=== PATIENT | male | born 1945 | race Caucasian/White ===

== ENCOUNTER 2018-02-18 17:58 | Emergency (ER) | payer MEDICARE, MEDICAID ==
[2018-02-18] MEDS ORDERED: predniSONE TAB* 20 MG PO ONE (21:27)
--- NOTE | 2018-02-18 21:45 | RAD ---
Indication: Cough. Shortness of breath. Comparison: July 03, 2011 CT. February 24, 2011 chest radiograph. Technique: Upright AP 2110 hours Report: 1.6 cm rounded region of low density opacity at the RIGHT lung base. Mild prominence of the interstitial markings and upper lung zone rarefaction. Negative for pleural effusion or pneumothorax. Prominent central pulmonary arteries with peripheral attenuation. IMPRESSION: 1. Indeterminant small rounded opacity at the RIGHT lung base may represent a rounded pneumonia or pulmonary nodule. Correlate with clinical assessment and consider contrast-enhanced CT for further evaluation. 2. Stigmata of chronic obstructive pulmonary disease and probable pulmonary arterial hypertension.
[2018-02-18] MEDS ORDERED: Levofloxacin TAB* 750 MG PO ONE (21:55)
--- NOTE | 2018-02-18 22:07 | ED ---
Christy Morgan Rebecca, scribed for Jorden Morin MD on 02/18/18 at 2138 . Respiratory - HPI Summary HPI Summary: Pt is a 72 y/o M who presents to ED c/o productive cough. Sx have been present for a few days and he is bringing up phlegm and mucous with coughing. Sx aggravated and alleviated by nothing. Additionally c/o hoarse voice for a few days. He denies any pain and has no SOB. Pt presents due to concern of PNA. - History of Current Complaint Chief Complaint: EDUpperRespComplaint Stated Complaint: THROAT PROBLEM Time Seen by Provider: 02/18/18 19:48 Hx Obtained From: Patient Onset/Duration: Lasting Days, Still Present Current Severity: None Pain Intensity: 0 Character: Cough (Productive) Aggravating Factor(s): Nothing Alleviating Factor(s): Nothing Associated Signs and Symptoms: Hoarseness - Allergy/Home Medications Allergies/Adverse Reactions: Allergies Allergy/AdvReac Type Severity Reaction Status Date / Time No Known Allergies Allergy Verified 02/18/18 19:16 PMH/Surg Hx/FS Hx/Imm Hx Endocrine/Hematology History: Denies: Hx Anticoagulant Therapy, Hx Diabetes, Hx Thyroid Disease Cardiovascular History: Reports: Hx Hypertension Denies: Hx Pacemaker/ICD Respiratory History: Denies: Hx Asthma, Hx Chronic Obstructive Pulmonary Disease (COPD) History: Denies: Hx Renal Disease Neurological History: Denies: Hx Dementia, Hx Seizures Psychiatric History: Denies: Hx Substance Abuse - Cancer History Cancer Type, Location and Year: prostate ca Infectious Disease History: No Infectious Disease History: Denies: Hx Hepatitis, Hx Human Immunodeficiency Virus (HIV), Traveled Outside the [place] in Last 30 Days - Family History Known Family History: Negative: Diabetes - Social History Alcohol Use: Rare Substance Use Type: Reports: None Smoking Status (MU): Former Smoker Review of Systems Positive: Other - Hoarse voice Positive: Cough. Negative: Shortness Of Breath Positive: Other - NEGATIVE: Pain All Other Systems Reviewed And Are Negative: Yes Physical Exam - Summary Physical Exam Summary: VITAL SIGNS: Reviewed. GENERAL: ~Patient is a well-developed and nourished male who is lying comfortable in the stretcher. Patient is not in any acute respiratory distress. HEAD AND FACE: No signs of trauma. No ecchymosis, hematomas or skull depressions. No sinus tenderness. EYES: PERRLA, EOMI x 2, No injected conjunctiva, no nystagmus. EARS: Hearing grossly intact. Ear canals and tympanic membranes are within normal limits. MOUTH: Mild hoarse voice. NECK: Supple, trachea is midline, no adenopathy, no JVD, no carotid bruit, no c- spine tenderness, neck with full ROM. CHEST: Symmetric, no tenderness at palpation LUNGS: Clear to auscultation bilaterally. No wheezing or crackles. CVS: Regular rate and rhythm, S1 and S2 present, no murmurs or gallops appreciated. ABDOMEN: Soft, non-tender. No signs of distention. No rebound no guarding, and no masses palpated. Bowel sounds are normal. EXTREMITIES: FROM in all major joints, no edema, no cyanosis or clubbing. NEURO: Alert and oriented x 3. No acute neurological deficits. Speech is normal and follows commands. SKIN: Dry and warm Triage Information Reviewed: Yes Vital Signs On Initial Exam: Initial Vitals Temp Pulse Resp BP Pulse Ox 97.6 F 88 18 126/84 97 02/18/18 18:08 02/18/18 18:08 02/18/18 18:08 02/18/18 18:08 02/18/18 18:08 Vital Signs Reviewed: Yes Diagnostics - Vital Signs Vital Signs Temp Pulse Resp BP Pulse Ox 02/18/18 19:15 97.7 F 86 16 137/94 99 02/18/18 18:08 97.6 F 88 18 126/84 97 - Laboratory Lab Statement: Any lab studies that have been ordered have been reviewed, and results considered in the medical decision making process. - Radiology CXR Radiology Interpretation Completed By: Radiologist - 1. Indeterminant small rounded opacity at the RIGHT lung base may represent a rounded pneumonia or pulmonary nodule. Correlate with clinical assessment and consider contrast- enhanced CT for further evaluation. 2. Stigmata of chronic obstructive pulmonary disease and probable pulmonary arterial hypertension. ED physician reviewed this radiology report. Re-Evaluation - Re-Evaluation First Eval Re-Evaluation Time: 21:58 Comment: Discussed CXR with pt. Told him that he needs to get a chest CT as an outpatient. Disposition - Course Assessment/Plan: Pt is a 72 y/o M who presents to ED c/o productive cough with phlegm and mucous for a few days, accompanied by hoarse voice for a few days. He denies any pain and has no SOB. Pt presents due to concern of PNA. CXR read as right-sided PNA vs. nodule with full results above. Discussed with the pt that he should get a chest CT as an outpatient. Will be D/C to home with Dx of laryngitis and PNA with Rx for Levaquin and Deltasone and instructions to get outpatient chest CT. Understands and agrees. - Diagnoses Provider Diagnoses: Laryngitis, PNA (pneumonia) Discharge - Sign-Out/Discharge Documenting (check all that apply): Discharge/Admit/Transfer - Discharge - Discharge Plan Condition: Stable Disposition: HOME Prescriptions: Levofloxacin TAB* [Levaquin TAB*] 750 mg PO DAILY #7 tab predniSONE TAB* [Deltasone TAB*] 40 mg PO DAILY #10 tab Patient Education Materials: Laryngitis (ED), Pneumonia (ED) Referrals: Mark Turner MD [Primary Care Provider] - 3 Days Additional Instructions: Get a chest CT as an outpatient. RETURN TO ED FOR ANY NEW OR WORSENING SYMPTOMS. The documentation as recorded by the Christy gunderson Rebecca accurately reflects the service I personally performed and the decisions made by me, Jorden Morin MD.
[2018-02-18 22:47] VITALS: BP 129/86
== END 2018-02-18 22:45 | disposition home or self-care (01) ==
LOC: ED 17:58
DX: J18.9 Pneumonia, unspecified organism (principal); J04.0 Acute laryngitis; Z87.891 Personal history of nicotine dependence
CPT/HCPCS: 71045; 99284; A9270-GY; J7512

== ENCOUNTER 2018-03-18 14:48 | Emergency (ER) | payer MEDICARE, MEDICAID ==
[2018-03-18] MEDS ORDERED: Ketorolac INJ* 60 MG/2 ML VIAL IM ONE (15:14)
--- NOTE | 2018-03-18 15:40 | RAD ---
HISTORY: fall, L hip injury COMPARISONS: None VIEWS: 3, Frontal view of the pelvis with frontal and frog-leg views of the left hip FINDINGS: BONE DENSITY: Normal. BONES: There is nondisplaced fracture through the greater trochanter of the left hip. 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 ALIGNMENT: There is no dislocation. SOFT TISSUES: Unremarkable. OTHER FINDINGS: None. IMPRESSION: NONDISPLACED FRACTURE THROUGH THE GREATER TROCHANTER OF THE LEFT FEMUR
--- NOTE | 2018-03-18 16:24 | RAD ---
Indication: Preop trochanteric fracture. Single view of the chest done in AP sitting view demonstrates no mediastinal shift. Hyperinflated lung littlejohn are noted. Lung littlejohn are clear. IMPRESSION: Hyperinflated lung littlejohn without definite pneumonia.
--- NOTE | 2018-03-18 16:25 | RAD ---
Indication: Trochanteric fracture 2 views of left femur demonstrates trochanteric fracture of the left hip. The remainder of the femur is unremarkable. Bipartite patella is noted. IMPRESSION: Fracture through the greater trochanter. Remainder of the left femur is unremarkable.
[2018-03-18 17:39] VITALS: BP 127/87
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
== END 2018-03-18 17:37 | disposition home or self-care (01) ==
LOC: ED 14:48
DX: S72.115A Nondisplaced fracture of greater trochanter of left femur, initial encounter for closed fracture (principal); V19.88XA Pedal cyclist (driver) (passenger) injured in other specified transport accidents, initial encounter; Y93.55 Activity, bike riding; Y92.9 Unspecified place or not applicable; I10 Essential (primary) hypertension; Z87.891 Personal history of nicotine dependence; Z79.899 Other long term (current) drug therapy; Z85.46 Personal history of malignant neoplasm of prostate; Z88.0 Allergy status to penicillin
CPT/HCPCS: 71045; 93005; 96372; 99282; J1885

== ENCOUNTER 2018-03-30 14:36 | Inpatient (IN) | payer MEDICARE, MEDICAID ==
--- NOTE | 2018-03-30 16:05 | RAD ---
INDICATION: Right shoulder injury COMPARISON: March 10, 2014 TECHNIQUE: AP and Y views were obtained. FINDINGS: There is anterior dislocation. There is chronic Hill-Sachs deformity. No additional findings. IMPRESSION: ANTERIOR DISLOCATION WITH HILL-SACHS DEFORMITY
[2018-03-30] MEDS ORDERED: Midazolam* 1 MG/ML 10 ML VIAL (10 MG) IV ONE (16:15)
[2018-03-30] MEDS ORDERED: fentaNYL* 50 MCG/ML 2 ML VIAL (100 MCG VIAL) IV SLOW PU ONE (16:15)
[2018-03-30] MEDS ORDERED: Flumazenil* 0.1 MG/ML 5 ML MDV ONE (16:20)
[2018-03-30] MEDS ORDERED: Naloxone* 0.4 MG/ML 1 ML VIAL ONE (16:21)
[2018-03-30] MEDS ORDERED: Midazolam* 1 MG/ML 2 ML VIAL (2 MG) IV ONE (17:53)
[2018-03-30] MEDS ORDERED: Midazolam* 1 MG/ML 10 ML VIAL (10 MG) ONE (17:54)
--- NOTE | 2018-03-30 18:26 | RAD ---
INDICATION: Postreduction COMPARISON: Right shoulder same date TECHNIQUE: 2 views were obtained. FINDINGS: There is satisfactory reduction. Note is again made of a chronic Hill-Sachs deformity. No additional findings. IMPRESSION: SATISFACTORY REDUCTION.
--- NOTE | 2018-03-30 18:58 | ED ---
Progress - Progress Note Progress Note: Mr. Ventura presented wiith a disloocated shoulder and I was asked to provide conscious sedation for reduction. Course/Dx - Course Course Of Treatment: Mr. Ventura was awake and cooperative. He had an ASA score of 2 and a Mallampati score of 1. He was placed on oxygen, pulse ox, monitor, and CO2 monitor. Reversal agents and airway rescue equipment was in the room. He was given 100 of fentanyl IV followed by 2 mg of Versed at a time for a total of 10. He maintained his pulse ox and CO2 well but was unable to respond during the procedure. The procedure was performed by Dr. Menezes. - Diagnoses Provider Diagnoses: Sedated Discharge - Sign-Out/Discharge Documenting (check all that apply): Discharge/Admit/Transfer - Discharge Plan Condition: Stable Disposition: HOME Patient Education Materials: Shoulder Dislocation (ED) Referrals: Mark Turner MD [Primary Care Provider] - Additional Instructions: Please follow up with Dr. Menezes as scheduled - within 1 week Keep the splint applied until your follow up - this is very important - Billing Disposition and Condition Condition: STABLE Disposition: Home
[2018-03-30 21:20] LABS: Urine Appearance Turbid; Urine Blood 2+ (Negative); Urine Color Amber; Urine Ketones 1+ (Negative); Urine Protein 3+(>=500 mg/dL) (Negative); Urine Red Blood Cell 3+(>10/hpf) (Absent); Urine Specific Gravity 1.009 (1.010-1.030); Urine Urobilinogen Negative (Negative); Urine White Blood Cell 3+(>20/hpf) (Absent)
--- NOTE | 2018-03-30 22:26 | CONS ---
ORTHOPEDIC CONSULTATION: DATE OF CONSULT: 03/30/18 ATTENDING PHYSICIAN: Christen Menezes MD This is an orthopedic consultation in the emergency room. CHIEF COMPLAINT: Right shoulder dislocation. HISTORY OF PRESENT ILLNESS: Mr. Ventura is a 72-year-old gentleman with recurrent right shoulder instability. He was reportedly getting up off of his couch when he dislocated his right shoulder earlier today. He had 10/10 pain and was unable to reduce the shoulder. He was brought to [facility] Emergency Room. I am called by provider in the emergency room. Multiple providers have attempted a reduction and have been unsuccessful. I am called to help with the reduction under anesthesia in the emergency room. PAST MEDICAL HISTORY: Alcohol abuse, hypertension, hypercholesterolemia, prostate cancer, and asthma. PAST SURGICAL HISTORY: None. HOME MEDICATIONS: 1. Metoprolol 50 mg p.o. daily. 2. Simvastatin 20 mg p.o. daily. 3. Tylenol. 4. Advil p.r.n. for pain. FAMILY HISTORY: None. SOCIAL HISTORY: The patient lives alone. He is right hand dominant. Retired from a pharmacy and works as a volunteer at [employer] REVIEW OF SYSTEMS: Today, the patient is under significant sedation and review of systems is unable to be obtained. PHYSICAL EXAM: Vitals: Temperature 98.9, heart rate 73, blood pressure 102/ 60. General: The patient is a thin male, in no apparent distress. He is heavily sedated. Right upper extremity: The patient's skin is intact. There is an obvious anterior shoulder dislocation. There is obvious muscle atrophy around the shoulder. 2+ palpable radial pulse. DIAGNOSTIC STUDIES/LAB DATA: Multiple views of the shoulder show an anterior inferior glenohumeral dislocation. There is chronic Hill-Sachs lesion on the humeral head. No obvious acute fracture. ASSESSMENT AND PLAN: Mr. Ventura is a 72-year-old right hand dominant male with recurrent right shoulder instability. I am called to the ED after multiple failed reduction attempts. The patient was heavily sedated and most of my history is from other history or prior history. I did work with Dr. Sarmiento. We performed the appropriate time-out. I felt that the patient needed additional pain medication due to a history of questionable alcohol abuse. More Versed was given at the bedside by Dr. Sarmiento. The patient' s vitals were monitored appropriately. A gentle reduction maneuver was performed and the right shoulder visibly reduced. He was placed in a shoulder immobilizer. Postreduction films did show satisfactory reduction. The patient's sedation will be reversed and he will be discharged to home in the shoulder immobilizer. He will follow up in my clinic within the next week or two for a recheck. Thank you for this orthopedic consultation. [id number]/CPS #: [id number] ASHELY
[2018-03-30] MEDS ORDERED: Ciprofloxacin TAB* 500 MG PO ONE (23:11)
[2018-03-31] MEDS ORDERED: NS 0.9% 1000 ML* 1,000 ML IV ONE (04:40)
[2018-03-31 05:00] LABS: Hematocrit 40 % (42-52); Hemoglobin 13.7 g/dl (14.0-18.0); Mean Corpuscular HGB Conc 34 g/dl (31-36); Mean Corpuscular Hemoglobin 30 pg (27-31); Mean Corpuscular Volume 89 fL (80-94); Mean Platelet Volume 7.1 um3 (7.4-10.4); Platelet Count 568 10^3/ul (150-450); Red Blood Count 4.52 10^6/ul (4.00-5.40); Red Cell Distribution Width 13 % (10.5-15); White Blood Count 9.8 10^3/ul (3.5-10.8)
[2018-03-31 05:14] LABS: ABS Basophils 0 10^3/ul (0-0.2); ABS Eosinophils 0 10^3/ul (0-0.6); ABS Monocytes 1.6 10^3/ul (0-0.8); ABS Neutrophils 7.2 10^3/ul (1.5-7.7); ABS Nucleated RBC 0 10^3/ul; Eosinophil % 0.2 % (0-6); Lymphocyte % 10.4 % (25-47); Nucleated Red Blood Cells % 0
[2018-03-31 05:17] LABS: EGFR Non-African American 137.7 (>60)
[2018-03-31] MEDS ORDERED: NS 0.9% 1000 ML* 1,000 ML IV SCH ×2 (05:45→11:45)
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
--- NOTE | 2018-03-31 06:36 | PN ---
Aaliyah Morgan SooYoung, scribed for Jorden Morin MD on 03/31/18 at 0451 . Progress Note - Progress Note Date of Service: 03/31/18 Note: SO from Dr. Sarmiento at shift change pending recovering from moderate sedation and discharge him home. 0425: MD at bedside Pt is a 72 y/o M presenting to ED with R shoulder dislocation. Patient did have difficulty ambulation. Pt denies neuropathy. Upon ambulation challenge, pt is unable to walk using a walker. Patient has normal motor exam on the stretcher. It's unclear why patient has unsteady gait. Patient would be admitted to the hospitalist service for further evaluation. 0551: Consult with Dr. Hernandez, hospitalist Will admit pt. DX: 1. unsteady gait 2. difficulty ambulating 3. UTI DISPO: Admit, stable The documentation as recorded by the Aaliyah gunderson SooYoung accurately reflects the service I personally performed and the decisions made by , Jorden Morin MD.
[2018-03-31] MEDS ORDERED: oxyCODONE/Acetamin 5/325 MG* TAB PO ONE (06:52)
[2018-03-31] MEDS ORDERED: Docusate CAP* 100 MG PO PRN (07:33)
--- NOTE | 2018-03-31 07:48 | RAD ---
HISTORY: weakness COMPARISONS: 07/18 2018 VIEWS: 1: frontal portable view of the chest at 5:41 AM FINDINGS: LINES AND TUBES: None. CARDIOMEDIASTINAL SILHOUETTE: The cardiomediastinal silhouette is normal for portable technique. PLEURA: The costophrenic angles are sharp. No pleural abnormalities are noted. LUNG PARENCHYMA: There is hyperinflation. ABDOMEN: The upper abdomen is clear. There is no subphrenic gas. BONES AND SOFT TISSUES: No bone or soft tissue abnormalities are noted. IMPRESSION: HYPERINFLATION. NO ACTIVE CARDIOPULMONARY DISEASE.
--- NOTE | 2018-03-31 07:50 | RAD ---
HISTORY: weakness COMPARISONS: None TECHNIQUE: Multiple contiguous axial CT scans were obtained of the head without intravenous contrast. FINDINGS: HEMORRHAGE/INFARCT: There is no hemorrhage or acute infarct. MASSES/SHIFT: There is no mass or shift. EXTRA-AXIAL SPACES: There are no extra-axial fluid collections. SULCI AND VENTRICLES: The sulci and ventricles are normal in size and position for the patient's stated age. CEREBRUM: There are no focal parenchymal abnormalities. BRAINSTEM: There are no focal parenchymal abnormalities. CEREBELLUM: There are no focal parenchymal abnormalities. VESSELS: There is calcification of the cavernous segments of the internal carotid arteries bilaterally. PARANASAL SINUSES: The paranasal sinuses are clear. ORBITS: The orbits are unremarkable. BONES AND SOFT TISSUE: No bone or soft tissue abnormalities are noted. OTHER: None IMPRESSION: NO ACUTE INTRACRANIAL PATHOLOGY.
[2018-03-31] MEDS: Montelukast Sodium TAB* 10 MG PO SCH (09:46)
[2018-03-31] MEDS: Metoprolol Succinate XL TAB* 50 MG PO SCH (09:46)
[2018-03-31] MEDS ORDERED: Magnesium Hydroxide LIQ* 30 ML UDC PO PRN (11:59)
[2018-03-31] MEDS ORDERED: LORazepam TAB(*) 1 MG PO SCH (12:00)
[2018-03-31] MEDS: cefTRIAXone VIAL(*) 1,000 MG in NS 0.9% 50 ML* 50 ML IVPB SCH (12:22)
--- NOTE | 2018-03-31 13:15 | RAD ---
INDICATION: Left hip pain. COMPARISON: Comparison is made with a prior x-ray study of the left hip from March 18, 2018. TECHNIQUE: Contiguous axial sections were obtained through the pelvis without intravenous or oral contrast. Images were reconstructed in the coronal and sagittal planes. FINDINGS: There is a mildly comminuted slightly distracted fracture of the left greater trochanter which appears unchanged significantly from the prior x-ray study. No additional fracture is seen. No hematoma is seen. 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 There is thickening of the wall of the urinary bladder which is most prominent along its anterior aspect with stranding in the adjacent fat raising the possibility of cystitis. There are also ill-defined calcifications present within the anterior lateral aspect of the urinary bladder on the left side. Recommend a CT urogram for further evaluation to exclude a mass. The visualized portion of the small bowel and colon appear nondistended. No free intraperitoneal air or fluid is seen. IMPRESSION: 1. MILDLY COMMINUTED SLIGHTLY DISPLACED FRACTURE OF THE LEFT GREATER TROCHANTER, UNCHANGED. 2. THICKENING OF THE WALL OF THE URINARY BLADDER RAISING THE POSSIBILITY OF CYSTITIS, RECOMMEND CLINICAL CORRELATION. IN ADDITION THERE IS ILL-DEFINED CALCIFICATION WITHIN THE BLADDER ON THE LEFT SIDE SUGGESTING THE POSSIBILITY OF A MASS. RECOMMEND A CT UROGRAM FOR FURTHER EVALUATION.
[2018-03-31 13:17] LABS: INR 1.06 (0.77-1.02)
[2018-03-31 13:22] LABS: EGFR Non-African American 140.5 (>60)
[2018-03-31] MEDS: Heparin VIAL(*) 5000 UNITS/ML VIAL (FIVE THOUSAND) SUBCUT SCH ×2 (13:55→20:06)
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
[2018-03-31] MEDS: Atorvastatin* 10 MG TAB PO SCH (18:22)
[2018-03-31] MEDS: Senna TAB PO SCH (20:05)
[2018-03-31] MEDS: Docusate CAP* 100 MG PO SCH (20:05)
[2018-04-01] MEDS: Heparin VIAL(*) 5000 UNITS/ML VIAL (FIVE THOUSAND) SUBCUT SCH ×3 (05:39→21:51)
[2018-04-01 06:11] LABS: ABS Basophils 0.1 10^3/ul (0-0.2); ABS Eosinophils 0 10^3/ul (0-0.6); ABS Lymphocytes 1.2 10^3/ul (1.0-4.8); ABS Monocytes 1.5 10^3/ul (0-0.8); ABS Neutrophils 5.8 10^3/ul (1.5-7.7); ABS Nucleated RBC 0 10^3/ul; Eosinophil % 0.3 % (0-6); Hematocrit 34 % (42-52); Hemoglobin 11.7 g/dl (14.0-18.0); Lymphocyte % 14.3 % (25-47); Mean Corpuscular HGB Conc 35 g/dl (31-36); Mean Corpuscular Hemoglobin 31 pg (27-31); Mean Corpuscular Volume 89 fL (80-94); Mean Platelet Volume 7.2 um3 (7.4-10.4); Nucleated Red Blood Cells % 0.1; Platelet Count 494 10^3/ul (150-450); Red Cell Distribution Width 13 % (10.5-15); White Blood Count 8.7 10^3/ul (3.5-10.8)
[2018-04-01 06:16] LABS: INR 0.98 (0.77-1.02)
[2018-04-01 06:29] LABS: EGFR Non-African American 152.8 (>60)
[2018-04-01] MEDS: Metoprolol Succinate XL TAB* 50 MG PO SCH (09:20)
[2018-04-01] MEDS: Thiamine TAB* 100 MG TAB PO SCH (09:21)
[2018-04-01] MEDS: Montelukast Sodium TAB* 10 MG PO SCH (09:21)
[2018-04-01] MEDS: Docusate CAP* 100 MG PO SCH ×2 (09:23→19:38)
[2018-04-01] MEDS: Multivitamins/Minerals TAB PO SCH (09:23)
[2018-04-01] MEDS: Folic Acid TAB* 1 MG PO SCH (09:24)
[2018-04-01] MEDS: Acetaminophen TAB* 325 MG PO PRN ×2 (09:28→19:38)
[2018-04-01] MEDS: cefTRIAXone VIAL(*) 1,000 MG in NS 0.9% 50 ML* 50 ML IVPB SCH (11:41)
--- NOTE | 2018-04-01 12:49 | PN ---
Subjective Date of Service: 04/01/18 Interval History: Patient seen and examined at bedside. Denies fever, chills, shortness of breath , chest discomfort, N/V/D. Pt states that his pain is well controlled. He is agreeable to going to rehab. Family History: Unchanged from Admission Social History: Unchanged from Admission Past Medical History: Unchanged from Admission Objective Active Medications: Acetaminophen (Tylenol Tab*) 650 mg PO Q4H PRN Reason: PAIN Albuterol (Ventolin Hfa Inhaler*) 1 puff INH Q4HR PRN Reason: SHORTNESS OF BREATH Atorvastatin Calcium (Lipitor*) 10 mg PO QPM GRANT Docusate Sodium (Colace Cap*) 100 mg PO BID GRANT Folic Acid (Folvite Tab*) 1 mg PO DAILY GRANT Heparin Sodium (Porcine) (Heparin Vial(*)) 5,000 units SUBCUT Q8HR GRANT Ceftriaxone Sodium 1,000 mg/ (Sodium Chloride) 50 mls @ 200 mls/hr IVPB Q24H GRANT Lorazepam (Ativan Tab(*)) 0 - 6 mg PO .PER [facility] PROTOCOL GRANT; Protocol Magnesium Hydroxide (Milk Of Magnnoble Liq*) 30 ml PO Q6H PRN Reason: CONSTIPATION Metoprolol Succinate (Toprol Xl Tab*) 50 mg PO DAILY GRANT Montelukast Sodium (Singulair Tab*) 10 mg PO DAILY GRANT Multivitamins/Minerals (Theragran/Minerals Tab*) 1 tab PO DAILY GRANT Senna (Senokot Tab*) 2 tab PO BEDTIME GRANT Thiamine HCl (Vitamin B-1 Tab*) 100 mg PO DAILY GRANT Tramadol HCl (Ultram*) 50 mg PO Q8H PRN Reason: PAIN Vital Signs - 8 hr 04/01/18 04/01/18 04/01/18 06:23 08:00 10:16 Temperature 98.2 F 97.6 F 98.0 F Pulse Rate 92 96 111 Respiratory 16 16 16 Rate Blood Pressure 134/76 123/71 122/64 (mmHg) O2 Sat by Pulse 97 96 100 Oximetry 04/01/18 11:39 Temperature Pulse Rate 80 Respiratory Rate Blood Pressure (mmHg) O2 Sat by Pulse Oximetry Oxygen Devices in Use Now: None Appearance: NAD, sitting up on the side of the bed Ears/Nose/Mouth/Throat: Mucous Membranes Moist Respiratory: Symmetrical Chest Expansion and Respiratory Effort, Clear to Auscultation Cardiovascular: NL Sounds; No Murmurs; No JVD, RRR Abdominal: NL Sounds; No Tenderness; No Distention Extremities: No Edema Neurological: Alert and Oriented x 3, NL Muscle Strength and Tone Lines/Tubes/Other Access: Clean, Dry and Intact Peripheral IV - site benign Nutrition: Taking PO's Result Diagrams: 04/01/18 05:52 04/01/18 05:52 Additional Lab and Data: Microbiology and Other Data: Microbiology 03/30/18 21:07 Urine Culture - Final Urine 03/31/18 04:52 Aerobic Blood Culture - Preliminary Blood Venous No Growth Day 1 Anaerobic Blood Culture - Preliminary No Growth Day 1 Assess/Plan/Problems-Billing Assessment: - Patient Problems (1) Dislocation of right shoulder joint Code(s): S43.004A - UNSPECIFIED DISLOCATION OF RIGHT SHOULDER JOINT, INIT ENCNTR SNOMED Code(s): 760872051 Comment: - S/P reduction in the ED on 03/30 - Arm to remain in sling at all times - Follow-up with orthopedics outpatient (2) Greater trochanter fracture Code(s): S72.113A - DISP FX OF GREATER TROCHANTER OF UNSP FEMUR, INIT SNOMED Code(s): 626045419 Comment: - Left - Non-operative, plan for weight bearing as tolerated - PT eval, pending - Management per Orthopedics with outpatient follow-up (3) Hyponatremia Code(s): E87.1 - HYPO-OSMOLALITY AND HYPONATREMIA SNOMED Code(s): 54586365 Comment: - Suspect secondary to alcoholism - Improved with IVFs - Start 1500 ml fluid restriction (4) UTI (urinary tract infection) Comment: - Afebrile and no leukocytosis - Continue to straight cath as needed - Continue ceftriaxone while urine culture is pending (5) Alcoholism Code(s): F10.20 - ALCOHOL DEPENDENCE, UNCOMPLICATED SNOMED Code(s): 5633615 Comment: - No signs of active withdrawal at this time - WAM score 1-4 - Continue WAM protocol (6) HTN (hypertension) Code(s): I10 - ESSENTIAL (PRIMARY) HYPERTENSION SNOMED Code(s): 38944852 Comment: - Mostly normotensive, SBP 100-150's - Continue metoprolol (7) COPD (chronic obstructive pulmonary disease) Code(s): J44.9 - CHRONIC OBSTRUCTIVE PULMONARY DISEASE, UNSPECIFIED SNOMED Code(s): 30529387 Comment: - No sign of acute exacerbation at this time - Continue sinulair and albuterol PRN (8) Prostate cancer Code(s): C61 - MALIGNANT NEOPLASM OF PROSTATE SNOMED Code(s): 723762941 Comment: - Continue to straight cath as needed - Follow-up with Urology outpatient (9) HLD (hyperlipidemia) Code(s): E78.5 - HYPERLIPIDEMIA, UNSPECIFIED SNOMED Code(s): 27039516 Comment: - Continue statin (10) DVT prophylaxis Code(s): AZW1657 - SNOMED Code(s): 031805120 Comment: - SQ heparin (11) DNR (do not resuscitate) Status and Disposition: Inpatient. Will need placement at discharge.
--- NOTE | 2018-04-01 15:14 | PN ---
Progress Note - Progress Note Date of Service: 04/01/18 SOAP: Subjective: Pt. is alert, nad. He reports the right shoulder and hip are minimally painful. Objective: Vital Signs: Temp Pulse Resp BP Pulse Ox 97.4 F 86 16 111/64 99 04/01/18 14:05 04/01/18 14:05 04/01/18 14:05 04/01/18 14:05 04/01/18 14:05 Laboratory Results - last 24 hr 04/01/18 04/01/18 04/01/18 02:28 02:28 05:52 WBC 8.7 RBC 3.80 L Hgb 11.7 L Hct 34 L MCV 89 MCH 31 MCHC 35 RDW 13 Plt Count 494 H D MPV 7.2 L Neut % (Auto) 67.1 Lymph % (Auto) 14.3 L [place] % (Auto) 17.6 H Eos % (Auto) 0.3 Baso % (Auto) 0.7 Absolute Neuts (auto) 5.8 Absolute Lymphs (auto) 1.2 Absolute Monos (auto) 1.5 H Absolute Eos (auto) 0 Absolute Basos (auto) 0.1 Absolute Nucleated RBC 0 Nucleated RBC % 0.1 INR (Anticoag Therapy) Sodium Potassium Chloride Carbon Dioxide Anion Gap BUN Creatinine Est GFR ( Amer) Est GFR (Non-Af Amer) BUN/Creatinine Ratio Glucose Calcium Urine Osmolality 293 Ur Random Sodium 57 04/01/18 04/01/18 05:52 05:52 WBC RBC Hgb Hct MCV MCH MCHC RDW Plt Count MPV Neut % (Auto) Lymph % (Auto) [place] % (Auto) Eos % (Auto) Baso % (Auto) Absolute Neuts (auto) Absolute Lymphs (auto) Absolute Monos (auto) Absolute Eos (auto) Absolute Basos (auto) Absolute Nucleated RBC Nucleated RBC % INR (Anticoag Therapy) 0.98 Sodium 129 L Potassium 3.5 Chloride 99 L Carbon Dioxide 22 Anion Gap 8 BUN 4 L Creatinine 0.53 L Est GFR ( Amer) 184.9 Est GFR (Non-Af Amer) 152.8 BUN/Creatinine Ratio 7.5 L Glucose 105 H Calcium 8.4 L Urine Osmolality Ur Random Sodium RUE - skin intact. ff/abd to 80 degrees without pain. distally nvi. Assessment: 72 yo M with R shoulder dislocation reduced under anesthesia in the ED. He also has a recent hip fracture involving the greater trochanter. Plan: 1 - R shoulder should be in immobilizer at ALL times. He is a huge dislocation risk 2- Ambule with a cane or rolling walker. No active abduction at hip 3- PT/OT 4- Follow up with ortho - Dr. Menezes - 7 days after discharge - call [phone].
[2018-04-01] MEDS: Atorvastatin* 10 MG TAB PO SCH (16:31)
[2018-04-01] MEDS: Senna TAB PO SCH (19:38)
[2018-04-02] MEDS: Heparin VIAL(*) 5000 UNITS/ML VIAL (FIVE THOUSAND) SUBCUT SCH ×3 (06:27→22:00)
[2018-04-02] MEDS: Metoprolol Succinate XL TAB* 50 MG PO SCH (08:09)
[2018-04-02] MEDS: Acetaminophen TAB* 325 MG PO PRN ×2 (08:09→21:15)
[2018-04-02] MEDS: Folic Acid TAB* 1 MG PO SCH (08:10)
[2018-04-02] MEDS: Multivitamins/Minerals TAB PO SCH (08:11)
[2018-04-02] MEDS: Thiamine TAB* 100 MG TAB PO SCH (08:11)
[2018-04-02] MEDS: Montelukast Sodium TAB* 10 MG PO SCH (08:12)
[2018-04-02] MEDS: Docusate CAP* 100 MG PO SCH ×2 (08:12→21:15)
[2018-04-02 08:32] LABS: EGFR Non-African American 152.8 (>60)
[2018-04-02] MEDS ORDERED: Potassium Chlor TAB* 20 MEQ TAB.ER PO ONE (09:15)
--- NOTE | 2018-04-02 09:28 | PN ---
Subjective Date of Service: 04/02/18 Interval History: Patient seen and examined at bedside. Denies fever, chills, shortness of breath , chest discomfort, N/V/D. Pt states that right shoulder and left hip pain are tolerable. Pt has been up and walking with a walker, reinforced that he needs to be non weight bearing on his right arm. Also reinforced that his arm needs to be in a sling at all times. Family History: Unchanged from Admission Social History: Unchanged from Admission Past Medical History: Unchanged from Admission Objective Active Medications: Acetaminophen (Tylenol Tab*) 650 mg PO Q4H PRN Reason: PAIN Albuterol (Ventolin Hfa Inhaler*) 1 puff INH Q4HR PRN Reason: SHORTNESS OF BREATH Atorvastatin Calcium (Lipitor*) 10 mg PO QPM GRANT Docusate Sodium (Colace Cap*) 100 mg PO BID GRANT Folic Acid (Folvite Tab*) 1 mg PO DAILY GRANT Heparin Sodium (Porcine) (Heparin Vial(*)) 5,000 units SUBCUT Q8HR GRANT Ceftriaxone Sodium 1,000 mg/ (Sodium Chloride) 50 mls @ 200 mls/hr IVPB Q24H GRANT Lorazepam (Ativan Tab(*)) 0 - 6 mg PO .PER [facility] PROTOCOL GRANT; Protocol Magnesium Hydroxide (Milk Of Magnesia Liq*) 30 ml PO Q6H PRN Reason: CONSTIPATION Metoprolol Succinate (Toprol Xl Tab*) 50 mg PO DAILY GRANT Montelukast Sodium (Singulair Tab*) 10 mg PO DAILY GRANT Multivitamins/Minerals (Theragran/Minerals Tab*) 1 tab PO DAILY GRANT Potassium Chloride (Klor Con Er Tab*) 40 meq PO ONCE ONE Stop: 04/02/18 09:16 Senna (Senokot Tab*) 2 tab PO BEDTIME GRANT Thiamine HCl (Vitamin B-1 Tab*) 100 mg PO DAILY GRANT Tramadol HCl (Ultram*) 50 mg PO Q8H PRN Reason: PAIN Vital Signs - 8 hr 04/02/18 04/02/18 04/02/18 02:00 03:27 05:26 Temperature Pulse Rate 86 95 Respiratory 18 18 18 Rate Blood Pressure 128/69 106/65 (mmHg) O2 Sat by Pulse 100 98 Oximetry 04/02/18 04/02/18 05:32 07:11 Temperature 97.7 F Pulse Rate 100 Respiratory 18 16 Rate Blood Pressure 99/81 (mmHg) O2 Sat by Pulse 99 Oximetry Oxygen Devices in Use Now: None Appearance: NAD, sitting up on the side of the bed Ears/Nose/Mouth/Throat: Mucous Membranes Moist Respiratory: Symmetrical Chest Expansion and Respiratory Effort, Clear to Auscultation Cardiovascular: NL Sounds; No Murmurs; No JVD, RRR Abdominal: NL Sounds; No Tenderness; No Distention Extremities: No Edema Skin: No Rash or Ulcers Neurological: Alert and Oriented x 3, NL Muscle Strength and Tone Lines/Tubes/Other Access: Clean, Dry and Intact Peripheral IV - site benign Nutrition: Taking PO's Result Diagrams: 04/01/18 05:52 04/02/18 07:37 Additional Lab and Data: Microbiology and Other Data: Microbiology 03/30/18 21:07 Urine Culture - Final Urine 03/31/18 04:52 Aerobic Blood Culture - Preliminary Blood Venous No Growth Day 1 Anaerobic Blood Culture - Preliminary No Growth Day 1 Assess/Plan/Problems-Billing Assessment: - Patient Problems (1) Dislocation of right shoulder joint Code(s): S43.004A - UNSPECIFIED DISLOCATION OF RIGHT SHOULDER JOINT, INIT ENCNTR SNOMED Code(s): 445702896 Comment: - S/P reduction in the ED on 03/30 - Arm to remain in sling at all times, non-weight bearing - Follow-up with orthopedics outpatient (2) Greater trochanter fracture Code(s): S72.113A - DISP FX OF GREATER TROCHANTER OF UNSP FEMUR, INIT SNOMED Code(s): 044999892 Comment: - Left - Non-operative, plan for weight bearing as tolerated - Continue PT/OT - Management per Orthopedics with outpatient follow-up (3) Hyponatremia Code(s): E87.1 - HYPO-OSMOLALITY AND HYPONATREMIA SNOMED Code(s): 09603628 Comment: - Suspect secondary to alcoholism - Improved with IVFs - Continue 1500 ml fluid restriction (4) Electrolyte abnormality Code(s): E87.8 - OTH DISORDERS OF ELECTROLYTE AND FLUID BALANCE, NEC SNOMED Code(s): 549169418 Comment: - Hypokalemia. Will give replacement today and recheck in the AM. - Add MG+ to AM labs and replace if needed (5) UTI (urinary tract infection) Comment: - Afebrile and no leukocytosis - Continue to straight cath as needed - Urine culture no growth, discontinue ceftriaxone (6) Alcoholism Code(s): F10.20 - ALCOHOL DEPENDENCE, UNCOMPLICATED SNOMED Code(s): 1570354 Comment: - No signs of active withdrawal at this time - WAM score 0-2 - Continue WAM protocol (7) HTN (hypertension) Code(s): I10 - ESSENTIAL (PRIMARY) HYPERTENSION SNOMED Code(s): 90924751 Comment: - Mostly normotensive, SBP 90-120's - Continue metoprolol (8) COPD (chronic obstructive pulmonary disease) Code(s): J44.9 - CHRONIC OBSTRUCTIVE PULMONARY DISEASE, UNSPECIFIED SNOMED Code(s): 63800188 Comment: - No sign of acute exacerbation at this time - Continue sinulair and albuterol PRN (9) Prostate cancer Code(s): C61 - MALIGNANT NEOPLASM OF PROSTATE SNOMED Code(s): 054910223 Comment: - Continue to straight cath as needed - Follow-up with Urology outpatient (10) HLD (hyperlipidemia) Code(s): E78.5 - HYPERLIPIDEMIA, UNSPECIFIED SNOMED Code(s): 24517333 Comment: - Continue statin (11) DVT prophylaxis Code(s): GWD3462 - SNOMED Code(s): 973262746 Comment: - SQ heparin (12) DNR (do not resuscitate) Status and Disposition: Inpatient. Discharge once placement has been arranged.
[2018-04-02] MEDS ORDERED: Magnesium Sulfate IV* 3 GM in NS 0.9% 100 ML* 100 ML IVPB ONE (10:12)
[2018-04-02] MEDS ORDERED: NS 0.9% 100 ML* 100 ML ONE (10:46)
[2018-04-02] MEDS: Albuterol HFA INHALER* 8 gm MDI INH PRN ×3 (10:47→21:03)
--- NOTE | 2018-04-02 12:57 | PN ---
Progress Note - Progress Note Date of Service: 04/02/18 SOAP: Subjective: Pt is doing well. Pain is controlled. Compliant with immobilizer and hip restrictions. Denies CP/SOB, F/C Objective: PE- 72 y/o WDWN M NAD, A&O x3 RUE- skin intact, in immobilizer, minimally tender to palpation, full ROM elbow wrist and hand, +2 radial pulse, SILT distally LLE- skin intact, minimally tender, +DF/PF, calf soft NT, +2 DP pulse, SILT distally Vital Signs Temp Pulse Resp BP Pulse Ox 97.9 F 91 18 107/66 97 04/02/18 10:05 04/02/18 10:51 04/02/18 10:51 04/02/18 10:05 04/02/18 10:51 Laboratory Results - last 24 hr 04/02/18 07:37 Sodium 131 L Potassium 3.4 L Chloride 97 L Carbon Dioxide 25 Anion Gap 9 BUN 5 L Creatinine 0.53 L Est GFR ( Amer) 184.9 Est GFR (Non-Af Amer) 152.8 BUN/Creatinine Ratio 9.4 Glucose 88 Calcium 8.9 Magnesium 1.7 L Assessment: 72 yo M with R shoulder dislocation reduced under anesthesia in the ED. He also has a recent hip fracture involving the greater trochanter. Plan: R shoulder should be in immobilizer at ALL times. He is at high risk of dislocation WBAT with a cane or rolling walker. No active abduction at hip Cont PT/OT Orthopedically stable for DC- awaiting placement Follow up with ortho - Dr. Menezes - 7 days after discharge - call [phone]
[2018-04-02] MEDS: Atorvastatin* 10 MG TAB PO SCH (17:57)
[2018-04-02] MEDS ORDERED: Benzocaine/Menthol LOZ* 1 LOZENGE PO PRN (20:42)
[2018-04-02] MEDS ORDERED: Benzocaine/Menthol LOZ* 1 LOZENGE ONE (20:47)
[2018-04-02] MEDS: Senna TAB PO SCH (21:15)
[2018-04-03] MEDS: Heparin VIAL(*) 5000 UNITS/ML VIAL (FIVE THOUSAND) SUBCUT SCH ×2 (06:00→17:18)
[2018-04-03 07:45] LABS: ABS Basophils 0.1 10^3/ul (0-0.2); ABS Eosinophils 0 10^3/ul (0-0.6); ABS Lymphocytes 0.9 10^3/ul (1.0-4.8); ABS Monocytes 1.1 10^3/ul (0-0.8); ABS Neutrophils 5.4 10^3/ul (1.5-7.7); ABS Nucleated RBC 0 10^3/ul; Eosinophil % 0.4 % (0-6); Hematocrit 34 % (42-52); Hemoglobin 11.9 g/dl (14.0-18.0); Lymphocyte % 12.4 % (25-47); Mean Corpuscular HGB Conc 35 g/dl (31-36); Mean Corpuscular Hemoglobin 31 pg (27-31); Mean Corpuscular Volume 89 fL (80-94); Mean Platelet Volume 7.2 um3 (7.4-10.4); Nucleated Red Blood Cells % 0; Platelet Count 490 10^3/ul (150-450); Red Blood Count 3.85 10^6/ul (4.00-5.40); Red Cell Distribution Width 13 % (10.5-15); White Blood Count 7.4 10^3/ul (3.5-10.8)
[2018-04-03] MEDS: Montelukast Sodium TAB* 10 MG PO SCH (08:01)
[2018-04-03] MEDS: Folic Acid TAB* 1 MG PO SCH (08:01)
[2018-04-03] MEDS: Metoprolol Succinate XL TAB* 50 MG PO SCH (08:02)
[2018-04-03] MEDS: Thiamine TAB* 100 MG TAB PO SCH (08:02)
[2018-04-03] MEDS: Acetaminophen TAB* 325 MG PO PRN (08:03)
[2018-04-03] MEDS: Multivitamins/Minerals TAB PO SCH (08:03)
--- NOTE | 2018-04-03 08:32 | PN ---
Subjective Date of Service: 04/03/18 Interval History: Patient seen and examined at bedside. Denies fever, chills, shortness of breath , chest discomfort, N/V/D. Pt reports left groin discomfort. Pt states that he was last able to urinate early this morning and has not been able to urinate today. Per NSG staff Pt noted to have >900 ml in his bladder with bladder scan. Pt unable to st. cath with supplies he was given and NSG staff unable to cath with coude cath. Pt given regular st. cath kit to attempt st. cath at bedside. Pt able to get ~[address] cath, Pt states that he was unable to fully pass the catheter. Post-cath bladder scan showed > 830 ml. Discussed issues with Dr. Avina who recommended that coude cath be placed and left in for a few days. Pt continues to take right arm out of immobilizer. Pt encouraged to be compliant with not using right arm and keeping it in the immobilizer. Family History: Unchanged from Admission Social History: Unchanged from Admission Past Medical History: Unchanged from Admission Objective Active Medications: Acetaminophen (Tylenol Tab*) 650 mg PO Q4H PRN Reason: PAIN Albuterol (Ventolin Hfa Inhaler*) 1 puff INH Q4HR PRN Reason: SHORTNESS OF BREATH Atorvastatin Calcium (Lipitor*) 10 mg PO QPM GRANT Docusate Sodium (Colace Cap*) 100 mg PO BID GRANT Folic Acid (Folvite Tab*) 1 mg PO DAILY GRANT Heparin Sodium (Porcine) (Heparin Vial(*)) 5,000 units SUBCUT Q8HR GRANT Lorazepam (Ativan Tab(*)) 0 - 6 mg PO .PER [facility] PROTOCOL GRANT; Protocol Magnesium Hydroxide (Milk Of Magnesia Liq*) 30 ml PO Q6H PRN Reason: CONSTIPATION Metoprolol Succinate (Toprol Xl Tab*) 50 mg PO DAILY [facility] Montelukast Sodium (Singulair Tab*) 10 mg PO DAILY [facility] Multivitamins/Minerals (Theragran/Minerals Tab*) 1 tab PO DAILY GRANT Senna (Senokot Tab*) 2 tab PO BEDTIME GRANT Thiamine HCl (Vitamin B-1 Tab*) 100 mg PO DAILY GRANT Throat Lozenges (Chloraseptic Anastasia*) 1 anastasia PO Q4H PRN Reason: SORE THROAT Tramadol HCl (Ultram*) 50 mg PO Q8H PRN Reason: PAIN Vital Signs - 8 hr 04/03/18 04/03/18 04/03/18 03:00 04:21 07:33 Temperature 98.1 F 98.6 F Pulse Rate 89 95 Respiratory 18 16 20 Rate Blood Pressure 135/77 120/63 (mmHg) O2 Sat by Pulse 100 100 Oximetry 04/03/18 04/03/18 07:41 07:42 Temperature Pulse Rate Respiratory 16 Rate Blood Pressure (mmHg) O2 Sat by Pulse 100 Oximetry Oxygen Devices in Use Now: None Appearance: NAD, sitting up on the side of the bed Ears/Nose/Mouth/Throat: Mucous Membranes Moist Respiratory: Symmetrical Chest Expansion and Respiratory Effort, Clear to Auscultation Cardiovascular: NL Sounds; No Murmurs; No JVD, RRR Abdominal: NL Sounds; No Tenderness; No Distention, - - ABD firm in the suprapubic area Extremities: No Edema Skin: No Rash or Ulcers Neurological: Alert and Oriented x 3, NL Muscle Strength and Tone Lines/Tubes/Other Access: Clean, Dry and Intact Peripheral IV - site benign Nutrition: Taking PO's Result Diagrams: 04/03/18 07:22 04/03/18 07:37 Additional Lab and Data: Microbiology and Other Data: Microbiology 03/30/18 21:07 Urine Culture - Final Urine 03/31/18 04:52 Aerobic Blood Culture - Preliminary Blood Venous No Growth Day 1 Anaerobic Blood Culture - Preliminary No Growth Day 1 Assess/Plan/Problems-Billing Assessment: - Patient Problems (1) Dislocation of right shoulder joint Code(s): S43.004A - UNSPECIFIED DISLOCATION OF RIGHT SHOULDER JOINT, INIT ENCNTR SNOMED Code(s): 030947073 Comment: - S/P reduction in the ED on 03/30 - Arm to remain in sling at all times, non-weight bearing - Follow-up with orthopedics outpatient (2) Greater trochanter fracture Code(s): S72.113A - DISP FX OF GREATER TROCHANTER OF UNSP FEMUR, INIT SNOMED Code(s): 532087654 Comment: - Left - Non-operative, plan for weight bearing as tolerated - Continue PT/OT - Management per Orthopedics with outpatient follow-up (3) Hyponatremia Code(s): E87.1 - HYPO-OSMOLALITY AND HYPONATREMIA SNOMED Code(s): 73187086 Comment: - Suspect secondary to alcoholism - Improved with IVFs - Continue 1500 ml fluid restriction (4) Electrolyte abnormality Code(s): E87.8 - OTH DISORDERS OF ELECTROLYTE AND FLUID BALANCE, NEC SNOMED Code(s): 351458208 Comment: - Hypokalemia. Will give replacement today and labs pending for today - Hypomagnesemia. Received replacement yesterday, labs pending for today (5) UTI (urinary tract infection) Comment: - Afebrile and no leukocytosis - Continue to straight cath as needed - Urine culture no growth, discontinued ceftriaxone (6) Alcoholism Code(s): F10.20 - ALCOHOL DEPENDENCE, UNCOMPLICATED SNOMED Code(s): 6169572 Comment: - No signs of active withdrawal at this time - WAM score 0-3 - Continue WAM protocol (7) HTN (hypertension) Code(s): I10 - ESSENTIAL (PRIMARY) HYPERTENSION SNOMED Code(s): 71291080 Comment: - Mostly normotensive, SBP 90-130's - Continue metoprolol (8) COPD (chronic obstructive pulmonary disease) Code(s): J44.9 - CHRONIC OBSTRUCTIVE PULMONARY DISEASE, UNSPECIFIED SNOMED Code(s): 57217095 Comment: - No sign of acute exacerbation at this time - Continue sinulair and albuterol PRN (9) Prostate cancer Code(s): C61 - MALIGNANT NEOPLASM OF PROSTATE SNOMED Code(s): 731107043 Comment: - With acute on chronic urinary retention - Will place a urinary catheter this AM - Follow-up with Urology outpatient (10) HLD (hyperlipidemia) Code(s): E78.5 - HYPERLIPIDEMIA, UNSPECIFIED SNOMED Code(s): 50660493 Comment: - Continue statin (11) DVT prophylaxis Code(s): GWO0033 - SNOMED Code(s): 582686281 Comment: - SQ heparin (12) DNR (do not resuscitate) Status and Disposition: Inpatient. Discharge once placement has been arranged.
[2018-04-03 08:46] LABS: EGFR Non-African American 156.2 (>60)
[2018-04-03] MEDS ORDERED: Lidocaine 2% JELLY* 30 GM TUBE TOPICAL ONE (09:19)
--- NOTE | 2018-04-03 10:22 | PN ---
Progress Note - Progress Note Date of Service: 04/03/18 SOAP: Subjective: Pt is doing well. Minimal pain in shoulder or hip. Per nursing staff the patient has been noncompliant with shoulder immobilizer and NWB RUE while using walker. Denies F/C, CP/SOB or calf pain Objective: PE- 72 y/o F NAD, A&Ox3 RUE- skin intact, in immobilizer, minimally tender to palpation, full ROM elbow wrist and hand, +2 radial pulse, SILT distally LLE- skin intact, minimally tender, +DF/PF, calf soft NT, +2 DP pulse, SILT distally Vital Signs Temp Pulse Resp BP Pulse Ox 98.6 F 95 16 120/63 100 04/03/18 07:33 04/03/18 07:33 04/03/18 07:42 04/03/18 07:33 04/03/18 07:41 Laboratory Results - last 24 hr 04/03/18 04/03/18 07:22 07:37 WBC 7.4 RBC 3.85 L Hgb 11.9 L Hct 34 L MCV 89 MCH 31 MCHC 35 RDW 13 Plt Count 490 H MPV 7.2 L Neut % (Auto) 72.2 Lymph % (Auto) 12.4 L [place] % (Auto) 14.1 H Eos % (Auto) 0.4 Baso % (Auto) 0.9 Absolute Neuts (auto) 5.4 Absolute Lymphs (auto) 0.9 L Absolute Monos (auto) 1.1 H Absolute Eos (auto) 0 Absolute Basos (auto) 0.1 Absolute Nucleated RBC 0 Nucleated RBC % 0 Sodium 131 L Potassium 4.2 Chloride 99 L Carbon Dioxide 25 Anion Gap 7 BUN 7 Creatinine 0.52 L Est GFR ( Amer) 189.0 Est GFR (Non-Af Amer) 156.2 BUN/Creatinine Ratio 13.5 Glucose 92 Calcium 8.6 Magnesium 1.9 Assessment: 72 yo M with R shoulder dislocation reduced under anesthesia in the ED. He also has a recent hip fracture involving the greater trochanter. Plan: R shoulder NWB- transitioned to sling to aid in compliance, patient discussed with physical therapist who will eval patient and aid with use of assistive device to aid in walking while minimizing weight bearing on right arm WBAT with a cane or rolling walker. No active abduction at hip Cont PT/OT Orthopedically stable for DC- awaiting placement Follow up with ortho - Dr. Menezes - 7 days after discharge - call [phone]
[2018-04-03] MEDS: traMADol TAB* 50 MG PO PRN (10:44)
[2018-04-03] MEDS: Docusate CAP* 100 MG PO SCH ×2 (11:21→21:41)
[2018-04-03] MEDS ORDERED: Gentamicin ADULT (*) 160 MG in NS 0.9% 100 ML* 100 ML IVPB ONE (14:00)
[2018-04-03] MEDS: Atorvastatin* 10 MG TAB PO SCH (17:18)
[2018-04-03] MEDS: Levofloxacin 500 MG IVPREMIX(* 500 MG/100 ML BAG IVPB SCH (17:20)
[2018-04-03] MEDS: Albuterol HFA INHALER* 8 gm MDI INH PRN (17:34)
[2018-04-03] MEDS: Senna TAB PO SCH (21:41)
[2018-04-04] MEDS: Docusate CAP* 100 MG PO SCH ×2 (08:57→20:45)
[2018-04-04] MEDS: Folic Acid TAB* 1 MG PO SCH (08:58)
[2018-04-04] MEDS: Multivitamins/Minerals TAB PO SCH (08:58)
[2018-04-04] MEDS: Montelukast Sodium TAB* 10 MG PO SCH (08:58)
[2018-04-04] MEDS: Metoprolol Succinate XL TAB* 50 MG PO SCH (08:58)
[2018-04-04] MEDS: Thiamine TAB* 100 MG TAB PO SCH (08:58)
[2018-04-04] MEDS ORDERED: Gentamicin ADULT (*) 160 MG in NS 0.9% 100 ML* 100 ML IVPB ONE (09:00)
--- NOTE | 2018-04-04 10:49 | PN ---
Subjective Date of Service: 04/04/18 Interval History: Patient seen and examined at bedside. Denies fever, chills, shortness of breath , chest discomfort, N/V/D. Pt states that he has intermittently been able to urinate ~ 100 ml urinate at a time. Pt states that his right shoulder pain is improving, along with the left groin pain. Pt states that he is able to ambulate with the walker and without placing weight on his right UE. He has also been more compliant with the sling. Family History: Unchanged from Admission Social History: Unchanged from Admission Past Medical History: Unchanged from Admission Objective Active Medications: Acetaminophen (Tylenol Tab*) 650 mg PO Q4H PRN Reason: PAIN Albuterol (Ventolin Hfa Inhaler*) 1 puff INH Q4HR PRN Reason: SHORTNESS OF BREATH Atorvastatin Calcium (Lipitor*) 10 mg PO QPM GRANT Docusate Sodium (Colace Cap*) 100 mg PO BID GRANT Folic Acid (Folvite Tab*) 1 mg PO DAILY GRANT Levofloxacin/Dextrose (Levaquin 500 Mg Ivpremix(*)) 500 mg in 100 mls @ 100 mls /hr IVPB Q24H GRANT Lactated Ringer's (Lactated Ringers 1000 Ml Bag*) 1,000 mls @ 150 mls/hr IV .PER RATE GRANT Lorazepam (Ativan Tab(*)) 0 - 6 mg PO .PER [facility] PROTOCOL GRANT; Protocol Magnesium Hydroxide (Milk Of Magnnoble Liq*) 30 ml PO Q6H PRN Reason: CONSTIPATION Metoprolol Succinate (Toprol Xl Tab*) 50 mg PO DAILY [facility] Montelukast Sodium (Singulair Tab*) 10 mg PO DAILY [facility] Multivitamins/Minerals (Theragran/Minerals Tab*) 1 tab PO DAILY GRANT Senna (Senokot Tab*) 2 tab PO BEDTIME GRANT Thiamine HCl (Vitamin B-1 Tab*) 100 mg PO DAILY [facility] Throat Lozenges (Chloraseptic Rohit*) 1 rohit PO Q4H PRN Reason: SORE THROAT Tramadol HCl (Ultram*) 50 mg PO Q8H PRN Reason: PAIN Vital Signs - 8 hr 04/04/18 04/04/18 03:04 07:27 Temperature 98.7 F 98.6 F Pulse Rate 90 89 Respiratory 16 18 Rate Blood Pressure 103/56 104/55 (mmHg) O2 Sat by Pulse 99 96 Oximetry Oxygen Devices in Use Now: None Appearance: NAD, sitting up on the side of the bed Ears/Nose/Mouth/Throat: Mucous Membranes Moist Respiratory: Symmetrical Chest Expansion and Respiratory Effort, Clear to Auscultation Cardiovascular: NL Sounds; No Murmurs; No JVD, RRR Abdominal: NL Sounds; No Tenderness; No Distention Extremities: No Edema Skin: No Rash or Ulcers Neurological: Alert and Oriented x 3, NL Muscle Strength and Tone Lines/Tubes/Other Access: Clean, Dry and Intact Peripheral IV - site benign Nutrition: Taking PO's Result Diagrams: 04/03/18 07:22 04/03/18 07:37 Additional Lab and Data: Microbiology and Other Data: Microbiology 03/30/18 21:07 Urine Culture - Final Urine 03/31/18 04:52 Aerobic Blood Culture - Preliminary Blood Venous No Growth Day 1 Anaerobic Blood Culture - Preliminary No Growth Day 1 Diagnostic Imaging: CHEST AP PORTABLE Exam Date: 03/31/18438 IMPRESSION: HYPERINFLATION. NO ACTIVE CARDIOPULMONARY DISEASE. EKG Data: EKG 03/18/18 - Sinus rhythm, rate 92. Nonspecific ST changes, and prolonged QT at 508. No acute signs of ischemia. Assess/Plan/Problems-Billing Assessment: - Patient Problems (1) Acute urinary retention Code(s): R33.8 - OTHER RETENTION OF URINE SNOMED Code(s): 315103261 Comment: - Acute on chronic - Urology consult, input appreciated - Plan for surgery later this morning According to the RCRI her has 0 points placing him at a Class I risk and a 0.4% risk of a major cardiac event. METs score ~ 2 at this time due to left greater trochanter fracture. No further cardiac work up needed at this time. He is medically optimized for surgery. (2) Dislocation of right shoulder joint Code(s): S43.004A - UNSPECIFIED DISLOCATION OF RIGHT SHOULDER JOINT, INIT ENCNTR SNOMED Code(s): 333303249 Comment: - Anterior dislocation - S/P reduction in the ED on 03/[address] Menezes - Arm to remain in sling at all times, non-weight bearing - Follow-up with orthopedics outpatient (3) Greater trochanter fracture Code(s): S72.113A - DISP FX OF GREATER TROCHANTER OF UNSP FEMUR, INIT SNOMED Code(s): 333950364 Comment: - Left - Non-operative, plan for weight bearing as tolerated - Continue PT/OT - Management per Orthopedics with outpatient follow-up (4) Hyponatremia Code(s): E87.1 - HYPO-OSMOLALITY AND HYPONATREMIA SNOMED Code(s): 87925490 Comment: - Suspect secondary to alcoholism - Improved with IVFs - Continue 1500 ml fluid restriction (5) Electrolyte abnormality Code(s): E87.8 - OTH DISORDERS OF ELECTROLYTE AND FLUID BALANCE, NEC SNOMED Code(s): 782471616 Comment: - Hypokalemia. Resolved after replacement - Hypomagnesemia. Resolved after replacement (6) UTI (urinary tract infection) Comment: - Afebrile and no leukocytosis - Continue to straight cath as needed - Urine culture no growth, discontinued ceftriaxone (7) Alcoholism Code(s): F10.20 - ALCOHOL DEPENDENCE, UNCOMPLICATED SNOMED Code(s): 8639841 Comment: - No signs of active withdrawal at this time - WAM score 0-3 - Continue WAM protocol (8) HTN (hypertension) Code(s): I10 - ESSENTIAL (PRIMARY) HYPERTENSION SNOMED Code(s): 59546162 Comment: - Mostly normotensive, SBP 100-150's - Continue metoprolol (9) COPD (chronic obstructive pulmonary disease) Code(s): J44.9 - CHRONIC OBSTRUCTIVE PULMONARY DISEASE, UNSPECIFIED SNOMED Code(s): 18452866 Comment: - No sign of acute exacerbation at this time - Continue sinulair and albuterol PRN (10) Prostate cancer Code(s): C61 - MALIGNANT NEOPLASM OF PROSTATE SNOMED Code(s): 117195849 Comment: - With acute on chronic urinary retention - Follow-up with Urology outpatient (11) HLD (hyperlipidemia) Code(s): E78.5 - HYPERLIPIDEMIA, UNSPECIFIED SNOMED Code(s): 15718289 Comment: - Continue statin (12) DVT prophylaxis Code(s): RTK1690 - SNOMED Code(s): 164394993 Comment: - SQ heparin (13) DNR (do not resuscitate) Status and Disposition: Inpatient. Plan for discharge possibly later today or in the AM to [facility] , after surgery today.
--- NOTE | 2018-04-04 11:49 | PN ---
Progress Note - Progress Note Date of Service: 04/04/18 SOAP: Subjective: []patient seen at bedside. He denies right shoulder or left hip pain. Confirms urinary retention for which he will have a procedure done prior to DC to CR today. Objective: [] Vital Signs Temp 98.6 F 04/04/18 07:27 Pulse 89 04/04/18 07:27 Resp 18 04/04/18 07:27 BP 104/55 04/04/18 07:27 Pulse Ox 96 04/04/18 07:27 Intake & Output 04/03/18 04/04/18 04/04/18 18:59 06:59 18:59 Intake Total 530 1390 0 Output Total 200 400 Balance 330 990 0 Intake: IV Fluids 990 LR 990 Oral 530 400 0 Output: Urine 200 400 Other: Estimated Void Small Medium Date of Last Bowel 04/03/18 Movement # Bowel Movements 1 Estimated Stool Amount Medium # Voids 1 2 Laboratory Last Values WBC 7.4 10^3/ul (3.5-10.8) 04/03/18 07:22 RBC 3.85 10^6/ul (4.00-5.40) L 04/03/18 07:22 Hgb 11.9 g/dl (14.0-18.0) L 04/03/18 07:22 Hct 34 % (42-52) L 04/03/18 07:22 MCV 89 fL (80-94) 04/03/18 07:22 MCH 31 pg (27-31) 04/03/18 07:22 MCHC 35 g/dl (31-36) 04/03/18 07:22 RDW 13 % (10.5-15) 04/03/18 07:22 Plt Count 490 10^3/ul (150-450) H 04/03/18 07:22 MPV 7.2 um3 (7.4-10.4) L 04/03/18 07:22 Neut % (Auto) 72.2 % (38-83) 04/03/18 07:22 Lymph % (Auto) 12.4 % (25-47) L 04/03/18 07:22 [place] % (Auto) 14.1 % (0-7) H 04/03/18 07:22 Eos % (Auto) 0.4 % (0-6) 04/03/18 07:22 Baso % (Auto) 0.9 % (0-2) 04/03/18 07:22 Absolute Neuts (auto) 5.4 10^3/ul (1.5-7.7) 04/03/18 07:22 Absolute Lymphs (auto) 0.9 10^3/ul (1.0-4.8) L 04/03/18 07:22 Absolute Monos (auto) 1.1 10^3/ul (0-0.8) H 04/03/18 07:22 Absolute Eos (auto) 0 10^3/ul (0-0.6) 04/03/18 07:22 Absolute Basos (auto) 0.1 10^3/ul (0-0.2) 04/03/18 07:22 Absolute Nucleated RBC 0 10^3/ul 04/03/18 07:22 Nucleated RBC % 0 04/03/18 07:22 INR (Anticoag Therapy) 0.98 (0.77-1.02) 04/01/18 05:52 APTT 29.4 seconds (26.0-36.3) 03/31/18 12:57 Sodium 131 mmol/L (135-145) L 04/03/18 07:37 Potassium 4.2 mmol/L (3.5-5.0) 04/03/18 07:37 Chloride 99 mmol/L (101-111) L 04/03/18 07:37 Carbon Dioxide 25 mmol/L (22-32) 04/03/18 07:37 Anion Gap 7 mmol/L (2-11) 04/03/18 07:37 BUN 7 mg/dL (6-24) 04/03/18 07:37 Creatinine 0.52 mg/dL (0.67-1.17) L 04/03/18 07:37 Est GFR ( Amer) 189.0 (>60) 04/03/18 07:37 Est GFR (Non-Af Amer) 156.2 (>60) 04/03/18 07:37 BUN/Creatinine Ratio 13.5 (8-20) 04/03/18 07:37 Glucose 92 mg/dL (70-100) 04/03/18 07:37 Serum Osmolality 269 mOsm/kg (275-295) L 03/31/18 04:52 Lactic Acid 0.7 mmol/L (0.5-2.0) 03/31/18 04:52 Calcium 8.6 mg/dL (8.6-10.3) 04/03/18 07:37 Magnesium 1.9 mg/dL (1.9-2.7) 04/03/18 07:37 Total Bilirubin 0.50 mg/dL (0.2-1.0) 03/31/18 04:52 AST 24 U/L (13-39) 03/31/18 04:52 ALT 11 U/L (7-52) 03/31/18 04:52 Alkaline Phosphatase 130 U/L (34-104) H 03/31/18 04:52 C-Reactive Protein 80.04 mg/L (<8.01) H 03/31/18 04:52 Total Protein 7.2 g/dL (6.4-8.9) 03/31/18 04:52 Albumin 3.8 g/dL (3.2-5.2) 03/31/18 04:52 Globulin 3.4 g/dL (2-4) 03/31/18 04:52 Albumin/Globulin Ratio 1.1 (1-3) 03/31/18 04:52 TSH 2.35 mcIU/mL (0.34-5.60) 03/31/18 04:52 Cortisol 18.89 mcg/dL 03/31/18 04:52 Urine Color [place] 03/30/18 21:07 Urine Appearance Turbid 03/30/18 21:07 Urine pH 7.0 (5-9) 03/30/18 21:07 Ur Specific [place] 1.009 (1.010-1.030) L 03/30/18 21:07 Urine Protein 3+(>=500 mg/dl) (Negative) A 03/30/18 21:07 Urine Ketones 1+ (Negative) A 03/30/18 21:07 Urine Blood 2+ (Negative) A 03/30/18 21:07 Urine Nitrate Negative (Negative) 03/30/18 21:07 Urine Bilirubin Negative (Negative) 03/30/18 21:07 Urine Urobilinogen Negative (Negative) 03/30/18 21:07 Ur Leukocyte Esterase 2+ (Negative) A 03/30/18 21:07 Urine WBC (Auto) 3+(>20/hpf) (Absent) A 03/30/18 21:07 Urine RBC (Auto) 3+(>10/hpf) (Absent) A 03/30/18 21:07 Urine Bacteria Absent (Absent) 03/30/18 21:07 Urine Osmolality 293 mOsm/kg (150-1150) 04/01/18 02:28 Ur Random Sodium 57 mmol/L 04/01/18 02:28 Urine Glucose Negative (Negative) 03/30/18 21:07 General: Well appearing, NAD RUE: Sling in place no obvious deformity, no tenderness to palpation over shoulder joint. Skin intact, upper arm and forearm compressible. Able to flex and extend at elbow and wrist. Okay sign and thumbs up intact. Sensation intact to light tough throughout RUE. Brisk capillary refill distally. LLE: No tenderness to palpation of left hip or thigh. DF/PF intact. 2+ DP pulse BL calves supple and nontender without palpable cords Assessment: [] 72 yo M with R shoulder dislocation reduced under anesthesia in the ED. He also has a recent left hip fracture involving the greater trochanter. Plan: R shoulder NWB, sling WBAT with a cane or rolling walker. No active abduction at hip Cont PT/OT Orthopedically stable for DC- awaiting placement. Likely to CR today Follow up with ortho - Dr. Menezes - 7 days after discharge - call [phone]
[2018-04-04] MEDS: Levofloxacin 500 MG IVPREMIX(* 500 MG/100 ML BAG IVPB SCH (17:28)
[2018-04-04 18:14] LABS: ABS Basophils 0 10^3/ul (0-0.2); ABS Eosinophils 0 10^3/ul (0-0.6); ABS Lymphocytes 0.3 10^3/ul (1.0-4.8); ABS Monocytes 1.1 10^3/ul (0-0.8); ABS Nucleated RBC 0 10^3/ul; Eosinophil % 0.1 % (0-6); Hematocrit 33 % (42-52); Hemoglobin 11.2 g/dl (14.0-18.0); Lymphocyte % 1.9 % (25-47); Mean Corpuscular HGB Conc 34 g/dl (31-36); Mean Corpuscular Hemoglobin 30 pg (27-31); Mean Corpuscular Volume 89 fL (80-94); Mean Platelet Volume 6.6 um3 (7.4-10.4); Nucleated Red Blood Cells % 0; Platelet Count 412 10^3/ul (150-450); Red Blood Count 3.73 10^6/ul (4.00-5.40); Red Cell Distribution Width 14 % (10.5-15); White Blood Count 16.5 10^3/ul (3.5-10.8)
[2018-04-04] MEDS: Atorvastatin* 10 MG TAB PO SCH (18:21)
[2018-04-04] MEDS ORDERED: NS 0.9% 1000 ML* 1,000 ML IV ONE (18:59)
[2018-04-04] MEDS ORDERED: Lidocaine 2% JELLY* 6 ML JELLY TOPICAL PRN (19:00)
--- NOTE | 2018-04-04 19:08 | PN ---
Hospitalist Progress Note Date of Service: 04/04/18 Pt's labs back: Laboratory Tests 04/04/18 04/04/18 18:01 18:01 WBC 16.5 H RBC 3.73 L Hgb 11.2 L Hct 33 L MPV 6.6 L Neut % (Auto) 91.1 H Lymph % (Auto) 1.9 L Absolute Neuts (auto) 15.0 H Absolute Lymphs (auto) 0.3 L Absolute Monos (auto) 1.1 H Lactic Acid 1.2 Selected Entries 04/04/18 18:41 Temperature 99.1 F Pulse Rate 93 Respiratory 16 Rate Blood Pressure 77/44 (mmHg) O2 Sat by Pulse 96 Oximetry Pt now with Sepsis (meeting SIRS criteria with fever, tachycardia, hypotension, and leukocytosis). UA pending at this time, but suspect urine is the source. Will give a 1,000 NS bolus to equal total of 1900ml (including OR bolus) and continue IV Levaquin. Will recheck labs in the AM. Further management will be based on the response to the fluid bolus.
[2018-04-04] MEDS: Senna TAB PO SCH (20:45)
[2018-04-04] MEDS ORDERED: NS 0.9% 1000 ML* 1,000 ML IV SCH (21:15)
[2018-04-04 22:03] LABS: Urine Appearance Cloudy; Urine Blood 3+ (Negative); Urine Color Straw; Urine Ketones Negative (Negative); Urine Protein Negative (Negative); Urine Red Blood Cell 2+(6-10/hpf) (Absent); Urine Specific Gravity 1.003 (1.010-1.030); Urine Urobilinogen Negative (Negative); Urine White Blood Cell 3+(>20/hpf) (Absent)
[2018-04-05] MEDS: Acetaminophen TAB* 325 MG PO PRN (00:40)
--- NOTE | 2018-04-05 01:17 | PN ---
Progress Note - Progress Note Date of Service: 04/05/18 Note: F/u sepsis evaluation. Mr Ventura is resting comfortably in no distress. Systolic remains low, but MAP is adequate. Continue current management.
[2018-04-05] MEDS: traMADol TAB* 50 MG PO PRN (03:51)
[2018-04-05 07:16] LABS: ABS Basophils 0 10^3/ul (0-0.2); ABS Eosinophils 0 10^3/ul (0-0.6); ABS Lymphocytes 0.6 10^3/ul (1.0-4.8); ABS Monocytes 0.9 10^3/ul (0-0.8); ABS Neutrophils 8.7 10^3/ul (1.5-7.7); ABS Nucleated RBC 0 10^3/ul; Eosinophil % 0.1 % (0-6); Hematocrit 30 % (42-52); Hemoglobin 10.6 g/dl (14.0-18.0); Lymphocyte % 5.8 % (25-47); Mean Corpuscular HGB Conc 35 g/dl (31-36); Mean Corpuscular Hemoglobin 31 pg (27-31); Mean Corpuscular Volume 88 fL (80-94); Mean Platelet Volume 6.8 um3 (7.4-10.4); Nucleated Red Blood Cells % 0; Platelet Count 345 10^3/ul (150-450); Red Blood Count 3.44 10^6/ul (4.00-5.40); Red Cell Distribution Width 13 % (10.5-15); White Blood Count 10.2 10^3/ul (3.5-10.8)
[2018-04-05 07:36] LABS: EGFR Non-African American 167.3 (>60)
[2018-04-05] MEDS: Folic Acid TAB* 1 MG PO SCH (08:24)
[2018-04-05] MEDS: Metoprolol Succinate XL TAB* 50 MG PO SCH (08:24)
[2018-04-05] MEDS: Thiamine TAB* 100 MG TAB PO SCH (08:24)
[2018-04-05] MEDS: Multivitamins/Minerals TAB PO SCH (08:24)
[2018-04-05] MEDS: Montelukast Sodium TAB* 10 MG PO SCH (08:24)
[2018-04-05] MEDS: Docusate CAP* 100 MG PO SCH ×2 (08:24→21:56)
--- NOTE | 2018-04-05 10:27 | OP ---
DATE OF OPERATION: 04/04/18 - ROOM #416 DATE OF : 45 SURGEON: Saleem Baxter MD. ANESTHESIOLOGIST: Eliseo Wilson MD. ANESTHESIA: General. PRE-OP DIAGNOSES: 1. Urinary retention. 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 4. Urinary tract infection. 3. History of prostate carcinoma, status post radiation therapy. POST-OP DIAGNOSES: 1. Urinary retention. 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 4. Urinary tract infection. 3. History of prostate carcinoma, status post radiation therapy. OPERATIVE PROCEDURE: 1. Cystoscopy. 2. Urethral dilation. 3. Placement of [place]-tip urethral catheter (16-Serbian). INDICATIONS: Mr. Ventura is a 72-year-old white male who was diagnosed about 10 years ago with prostate carcinoma and was treated with radiation therapy. He has done very well and has had no evidence of recurrent disease and his PSA has been undetectable at 0.0. The patient was noted to have flaccid neurogenic bladder and had been on intermittent self catheterization. 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 The patient was admitted with shoulder fracture and fracture of the greater trochanter of his left femur. He did not do self-catheterization for 3 days, his bladder was distended. Attempt at placing a urethral catheter on the floor was not successful. The patient is now taken to the operating room for cystoscopy and placement of a urethral catheter. The patient was noted today to run a high-grade fever and to have chills. He has been on Levaquin. PATHOLOGY AT CYSTOSCOPY: The penile urethra looked normal. There was a stricture in the membranous urethra. There was a false passage in the posterior urethra just proximal to the stricture of the membranous urethra. The membranous urethra and the prostatic urethra were rigid consistent with scarring from radiation therapy. The prostate was minimally enlarged. There was a large amount of cloudy urine with mucous inside the bladder. Cystoscopy showed diffuse bladder wall hyperemia and trabeculations. DESCRIPTION OF PROCEDURE: After successful general anesthesia, the patient was placed in the lithotomy position and was prepped and draped for a cystoscopy. An 18-Serbian cystoscope was passed under direct vision and the findings in the urethra were noted. The scope was then introduced into the membranous urethra dilating the stricture and passed inside the bladder. The bladder was drained. Cystoscopy was then performed. A guidewire was then introduced through the cystoscope was and the cystoscope was removed keeping the guidewire in place. A size 16 [place]-tip catheter was then fed above the guidewire and introduced inside the bladder and the balloon inflated with 15 cc of water. The patient tolerated the procedure well and left the operating room in good condition. The plan is to keep the Cole in place until there is complete healing of the false passage. When the patient recovers from his shoulder fracture, he can go back performing the intermittent self catheterization and dilations. [id number]/CPS #: [id number] ASHELY
--- NOTE | 2018-04-05 11:50 | PN ---
Subjective Date of Service: 04/05/18 Interval History: Patient reports he is feeling a little better today but reports biggest c/o is left lower abdomen pain since this am which has been waxing and waning. He reports hip pain as well and cant tell if it is radiating to his lower abdomen but thinks this is a different pain which developed after the zavala catheter was placed. Denies back/flank pain. No fevers or chills. No SOB/CP. Denies cough or orthopnea. Reports good appetite. No N/V/D. Family History: Unchanged from Admission Social History: Unchanged from Admission Past Medical History: Unchanged from Admission Objective Active Medications: Acetaminophen (Tylenol Tab*) 650 mg PO Q4H PRN PRN Reason: PAIN Last Admin: 04/05/18 00:40 Dose: 650 mg Albuterol (Ventolin Hfa Inhaler*) 1 puff INH Q4HR PRN PRN Reason: SHORTNESS OF BREATH Last Admin: 04/03/18 17:34 Dose: 1 puff Atorvastatin Calcium (Lipitor*) 10 mg PO QPM [facility] Last Admin: 04/04/18 18:21 Dose: 10 mg Docusate Sodium (Colace Cap*) 100 mg PO BID [facility] Last Admin: 04/05/18 08:24 Dose: Not Given Folic Acid (Folvite Tab*) 1 mg PO DAILY [facility] Last Admin: 04/05/18 08:24 Dose: 1 mg Levofloxacin/Dextrose (Levaquin 500 Mg Ivpremix(*)) 500 mg in 100 mls @ 100 mls /hr IVPB Q24H [facility] Last Admin: 04/04/18 17:28 Dose: Not Given Lactated Ringer's (Lactated Ringers 1000 Ml Bag*) 1,000 mls @ 375 mls/hr IV PER RATE [facility] Last Admin: 04/05/18 10:05 Dose: 375 mls/hr Lidocaine HCl (Lidocaine 2% Jelly*) 1 applic TOPICAL TID PRN PRN Reason: PAIN Magnesium Hydroxide (Milk Of Magnesia Liq*) 30 ml PO Q6H PRN PRN Reason: CONSTIPATION Metoprolol Succinate (Toprol Xl Tab*) 50 mg PO DAILY [facility] Last Admin: 04/05/18 08:24 Dose: 50 mg Montelukast Sodium (Singulair Tab*) 10 mg PO DAILY [facility] Last Admin: 04/05/18 08:24 Dose: 10 mg Multivitamins/Minerals (Theragran/Minerals Tab*) 1 tab PO DAILY [facility] Last Admin: 04/05/18 08:24 Dose: 1 tab Senna (Senokot Tab*) 2 tab PO BEDTIME [facility] Last Admin: 04/04/18 20:45 Dose: Not Given Thiamine HCl (Vitamin B-1 Tab*) 100 mg PO DAILY [facility] Last Admin: 04/05/18 08:24 Dose: 100 mg Throat Lozenges (Chloraseptic Anastasia*) 1 anastasia PO Q4H PRN PRN Reason: SORE THROAT Last Admin: 04/02/18 21:04 Dose: 1 anastasia Tramadol HCl (Ultram*) 50 mg PO Q8H PRN PRN Reason: PAIN Last Admin: 04/05/18 03:51 Dose: 50 mg Vital Signs - 8 hr 04/05/18 04/05/18 04/05/18 03:51 04:35 05:59 Temperature 98.7 F Pulse Rate 76 Respiratory 16 16 16 Rate Blood Pressure 122/56 (mmHg) O2 Sat by Pulse 98 Oximetry 04/05/18 04/05/18 04/05/18 06:10 07:23 11:07 Temperature 98.7 F 98.3 F 99.3 F Pulse Rate 86 91 89 Respiratory 18 18 18 Rate Blood Pressure 123/73 126/65 94/47 (mmHg) O2 Sat by Pulse 93 92 93 Oximetry 04/05/18 11:35 Temperature Pulse Rate Respiratory Rate Blood Pressure 92/48 (mmHg) O2 Sat by Pulse Oximetry Oxygen Devices in Use Now: None Appearance: 72 yo male sitting up in a chair in NAD. A+O x3 Eyes: No Scleral Icterus, PERRLA Ears/Nose/Mouth/Throat: NL Teeth, Lips, Gums, Mucous Membranes Moist Respiratory: Symmetrical Chest Expansion and Respiratory Effort, Clear to Auscultation Cardiovascular: NL Sounds; No Murmurs; No JVD, RRR, No Edema Abdominal: - - LLQ tenderness, nondistended - mild guarding - no rebound, NLl BS Extremities: No Clubbing, Cyanosis, - - mild LE trace b/l feet edema. Right arm in sling - + radial pulse, warm, pink Neurological: Alert and Oriented x 3, NL Sensation, NL Muscle Strength and Tone Lines/Tubes/Other Access: Clean, Dry and Intact Zavala, Clean, Dry and Intact Peripheral IV Nutrition: Taking PO's Result Diagrams: 04/05/18 07:01 04/05/18 07:01 Additional Lab and Data: Microbiology and Other Data: Microbiology 03/30/18 21:07 Urine Culture - Final Urine 03/31/18 04:52 Aerobic Blood Culture - Preliminary Blood Venous No Growth Day 1 Anaerobic Blood Culture - Preliminary No Growth Day 1 Diagnostic Imaging: CHEST AP PORTABLE Exam Date: 03/31/18438 IMPRESSION: HYPERINFLATION. NO ACTIVE CARDIOPULMONARY DISEASE. EKG Data: EKG 03/18/18 - Sinus rhythm, rate 92. Nonspecific ST changes, and prolonged QT at 508. No acute signs of ischemia. Assess/Plan/Problems-Billing Assessment: 72 yo male who who presented to the ER on 03/31 after he was evaluated the day prior in the ER for a fall found to have a dislocated shoulder , he then returned to the ER with c/o left hip pain found to have a left hip fracture - Patient Problems (1) Acute urinary retention Comment: - Acute on chronic - post obstructive - - Zavala placed in OR yesterday by urology - Urology consult, input appreciated - continue irrigating PRN - urology reports lots of mucous when zavala was placed. - Measure urine output Q3 hours as Q4 hours he was having larger [id number] out; last irrigation output was 700 mls. Urine noted to be clear light yellow with mucous. No hematuria or clots noted. - CT pelvis - showing bladder wall thickening suspicous for cystitis, left side suggested possible mass? Will discuss with urology. No imaging of kidneys - will obtain u/s. (2) UTI (urinary tract infection) Comment: - Possible sepsis, now resolved. -Continue Levaquin (3) Electrolyte abnormality Comment: - Hypokalemia. Resolved after replacement - Hypomagnesemia. Resolved after replacement (4) Dislocation of right shoulder joint Comment: - Anterior dislocation - S/P reduction in the ED on 03/[address] Menezes - Arm to remain in sling at all times, non-weight bearing - Follow-up with orthopedics outpatient (5) Greater trochanter fracture Comment: - Left - Non-operative, plan for weight bearing as tolerated. No actice abduction at hip. - Continue PT/OT - Management per Orthopedics with outpatient follow-up in 7 days after discharge (6) Hyponatremia Comment: - Suspect secondary to alcoholism - Improved with IVFs - Continue 1500 ml fluid restriction (7) Alcoholism Comment: - No signs of active withdrawal at this time - WAM score 0-3 - Continue WAM protocol (8) COPD (chronic obstructive pulmonary disease) Comment: - No sign of acute exacerbation at this time - Continue sinulair and albuterol PRN (9) HLD (hyperlipidemia) Comment: - Continue statin (10) HTN (hypertension) Comment: - Mostly normotensive, SBP 100-150's - Continue metoprolol (11) Prostate cancer Comment: - With acute on chronic urinary retention - Follow-up with Urology outpatient (12) DNR (do not resuscitate) (13) DVT prophylaxis Comment: - SQ heparin Status and Disposition: Inpatient. Plan for discharge possibly later today or in the AM to [facility] , after surgery today.
--- NOTE | 2018-04-05 14:09 | RAD ---
INDICATION: Obstructive uropathy COMPARISON: CT of the pelvis dated June 01, 2018 that demonstrates a grossly dilated urinary bladder. TECHNIQUE: Real-time ultrasound examination of the bilateral kidneys including grayscale and Doppler color flow analysis. FINDINGS: Bilaterally the kidneys are normal in size and echogenicity. There are no hypervascular renal masses. There are no renal calculi or hydronephrosis identified. IMPRESSION: Normal ultrasound of the kidneys without sonographic appearance of hydronephrosis.
[2018-04-05] MEDS: Levofloxacin 500 MG IVPREMIX(* 500 MG/100 ML BAG IVPB SCH (14:36)
[2018-04-05] MEDS: Atorvastatin* 10 MG TAB PO SCH (17:33)
[2018-04-05] MEDS: Senna TAB PO SCH (21:56)
[2018-04-06 06:45] LABS: Hematocrit 32 % (42-52); Hemoglobin 11.1 g/dl (14.0-18.0); Mean Corpuscular HGB Conc 34 g/dl (31-36); Mean Corpuscular Hemoglobin 30 pg (27-31); Mean Corpuscular Volume 89 fL (80-94); Mean Platelet Volume 6.7 um3 (7.4-10.4); Platelet Count 343 10^3/ul (150-450); Red Blood Count 3.66 10^6/ul (4.00-5.40); Red Cell Distribution Width 13 % (10.5-15); White Blood Count 6.1 10^3/ul (3.5-10.8)
[2018-04-06 06:50] LABS: ABS Basophils 0 10^3/ul (0-0.2); ABS Eosinophils 0 10^3/ul (0-0.6); ABS Lymphocytes 1.1 10^3/ul (1.0-4.8); ABS Monocytes 1.4 10^3/ul (0-0.8); ABS Neutrophils 3.6 10^3/ul (1.5-7.7); ABS Nucleated RBC 0 10^3/ul
[2018-04-06 06:56] LABS: EGFR Non-African American 163.5 (>60)
[2018-04-06 07:15] LABS: ABS Basophils 0 10^3/ul (0-0.2); ABS Neutrophils 3.7 10^3/ul (1.5-7.7); Monocytes % 16 % (0-7)
[2018-04-06] MEDS: Acetaminophen TAB* 325 MG PO PRN (08:20)
[2018-04-06] MEDS: Multivitamins/Minerals TAB PO SCH (08:21)
[2018-04-06] MEDS: Montelukast Sodium TAB* 10 MG PO SCH (08:21)
[2018-04-06] MEDS: Docusate CAP* 100 MG PO SCH ×2 (08:21→21:17)
[2018-04-06] MEDS: Metoprolol Succinate XL TAB* 50 MG PO SCH (08:21)
[2018-04-06] MEDS: Thiamine TAB* 100 MG TAB PO SCH (08:21)
[2018-04-06] MEDS: Folic Acid TAB* 1 MG PO SCH (08:21)
[2018-04-06] MEDS: traMADol TAB* 50 MG PO PRN ×2 (11:10→21:18)
--- NOTE | 2018-04-06 11:51 | PN ---
Subjective Date of Service: 04/06/18 Interval History: Pt reports he is feeling better today and walked more with PT today than he has walked in the past week. He continues to feel weak but reports he feels that he is improving daily, he is motivated to get better. Noted fever recorded in chart last night but patients denies feeling febrile. Denies chills. No N/V/D. Reports good appetite. Reports the left lower abdomen pain is better and now has more noted pain in his left hip. Continues to feel edematous in his LE. Denies orthopnea Family History: Unchanged from Admission Social History: Unchanged from Admission Past Medical History: Unchanged from Admission Objective Active Medications: Acetaminophen (Tylenol Tab*) 650 mg PO Q4H PRN PRN Reason: PAIN Last Admin: 04/06/18 08:20 Dose: 650 mg Albuterol (Ventolin Hfa Inhaler*) 1 puff INH Q4HR PRN PRN Reason: SHORTNESS OF BREATH Last Admin: 04/03/18 17:34 Dose: 1 puff Atorvastatin Calcium (Lipitor*) 10 mg PO QPM [facility] Last Admin: 04/05/18 17:33 Dose: 10 mg Docusate Sodium (Colace Cap*) 100 mg PO BID [facility] Last Admin: 04/06/18 08:21 Dose: 100 mg Folic Acid (Folvite Tab*) 1 mg PO DAILY [facility] Last Admin: 04/06/18 08:21 Dose: 1 mg Levofloxacin/Dextrose (Levaquin 500 Mg Ivpremix(*)) 500 mg in 100 mls @ 100 mls /hr IVPB Q24H [facility] Last Admin: 04/05/18 14:36 Dose: 100 mls/hr Lidocaine HCl (Lidocaine 2% Jelly*) 1 applic TOPICAL TID PRN PRN Reason: PAIN Magnesium Hydroxide (Milk Of Magnesia Liq*) 30 ml PO Q6H PRN PRN Reason: CONSTIPATION Metoprolol Succinate (Toprol Xl Tab*) 50 mg PO DAILY [facility] Last Admin: 04/06/18 08:21 Dose: 50 mg Montelukast Sodium (Singulair Tab*) 10 mg PO DAILY [facility] Last Admin: 04/06/18 08:21 Dose: 10 mg Multivitamins/Minerals (Theragran/Minerals Tab*) 1 tab PO DAILY [facility] Last Admin: 04/06/18 08:21 Dose: 1 tab Senna (Senokot Tab*) 2 tab PO BEDTIME [facility] Last Admin: 04/05/18 21:56 Dose: 2 tab Thiamine HCl (Vitamin B-1 Tab*) 100 mg PO DAILY [facility] Last Admin: 04/06/18 08:21 Dose: 100 mg Throat Lozenges (Chloraseptic Anastasia*) 1 anastasia PO Q4H PRN PRN Reason: SORE THROAT Last Admin: 04/02/18 21:04 Dose: 1 anastasia Tramadol HCl (Ultram*) 50 mg PO Q8H PRN PRN Reason: PAIN Last Admin: 04/06/18 11:10 Dose: 50 mg Vital Signs - 8 hr 04/06/18 04/06/18 04/06/18 07:42 08:00 11:10 Temperature 97.7 F Pulse Rate 92 Respiratory 16 16 16 Rate Blood Pressure 112/55 (mmHg) O2 Sat by Pulse 94 94 Oximetry Oxygen Devices in Use Now: None Appearance: 72 yo male sitting up in a chair in NAD. A+Ox3 Eyes: No Scleral Icterus, PERRLA Ears/Nose/Mouth/Throat: NL Teeth, Lips, Gums, Mucous Membranes Moist Neck: NL Appearance and Movements; NL JVP Respiratory: Symmetrical Chest Expansion and Respiratory Effort, Clear to Auscultation Cardiovascular: NL Sounds; No Murmurs; No JVD, RRR Abdominal: NL Sounds; No Tenderness; No Distention Extremities: No Clubbing, Cyanosis, - - 1-2+ LE edema b/l Skin: No Rash or Ulcers, No Nodules or Sclerosis Neurological: Alert and Oriented x 3, NL Sensation, NL Gait, NL Muscle Strength and Tone Lines/Tubes/Other Access: Clean, Dry and Intact Zavala - draining clear yellow urine, Clean, Dry and Intact Peripheral IV Nutrition: Taking PO's Result Diagrams: 04/06/18 06:24 04/06/18 06:24 Additional Lab and Data: Microbiology and Other Data: Microbiology 03/30/18 21:07 Urine Culture - Final Urine 03/31/18 04:52 Aerobic Blood Culture - Preliminary Blood Venous No Growth Day 1 Anaerobic Blood Culture - Preliminary No Growth Day 1 Diagnostic Imaging: CHEST AP PORTABLE Exam Date: 03/31/18438 IMPRESSION: HYPERINFLATION. NO ACTIVE CARDIOPULMONARY DISEASE. EKG Data: EKG 03/18/18 - Sinus rhythm, rate 92. Nonspecific ST changes, and prolonged QT at 508. No acute signs of ischemia. Assess/Plan/Problems-Billing Assessment: 72 yo male who who presented to the ER on 03/31 after he was evaluated the day prior in the ER for a fall found to have a dislocated shoulder , he then returned to the ER with c/o left hip pain found to have a left hip fracture - Patient Problems (1) Acute urinary retention Comment: - Acute on chronic - post obstructive - - Zavala placed in OR 04/04 by urology - Urology consult, input appreciated - continue irrigating PRN - urology reports lots of mucous when zavala was placed - has imporved overnight, now draining well - CT pelvis - showing bladder wall thickening suspicous for cystitis, left side suggested possible mass? Will discuss with urology. kidneys u/s normal - no hydronephrosis. - PSA pending (2) UTI (urinary tract infection) Comment: - Possible sepsis, now resolved. Fever of 101 last night - urine cx negative - no other obvious source. Add on CRP - Blood cx NTD, urine cx NTD -Continue Levaquin per urology (3) Electrolyte abnormality Comment: - Hypokalemia. Resolved after replacement - Hypomagnesemia. Resolved after replacement (4) Dislocation of right shoulder joint Comment: - Anterior dislocation - S/P reduction in the ED on 03/[address] Menezes - Arm to remain in sling at all times, non-weight bearing - Follow-up with orthopedics outpatient (5) Greater trochanter fracture Comment: - Left - Non-operative, plan for weight bearing as tolerated. No actice abduction at hip. - Continue PT/OT - Management per Orthopedics with outpatient follow-up in 7 days after discharge (6) Hyponatremia Comment: - Suspect secondary to alcoholism - Improved with IVFs (7) Alcoholism Comment: - No signs of active withdrawal at this time - DC [place] protocol (8) COPD (chronic obstructive pulmonary disease) Comment: - No sign of acute exacerbation at this time - Continue sinulair and albuterol PRN (9) HLD (hyperlipidemia) Comment: - Continue statin (10) HTN (hypertension) Comment: - Mostly normotensive, SBP 100-150's - Continue metoprolol (11) Prostate cancer Comment: - With acute on chronic urinary retention - Follow-up with Urology outpatient (12) DNR (do not resuscitate) (13) DVT prophylaxis Comment: - SQ heparin Status and Disposition: Inpatient. Plan for discharge possibly tomorrow.
--- NOTE | 2018-04-06 14:59 | PN ---
Progress Note - Progress Note Date of Service: 04/06/18 SOAP: Subjective: []Patient seen sitting at bedside. He feels well. His right shoulder is not painful. He walked around the unit today without difficulty and without hip pain. Objective: [] Vital Signs Temp 97.7 F 04/06/18 07:42 Pulse 92 04/06/18 07:42 Resp 16 04/06/18 11:10 BP 112/55 04/06/18 07:42 Pulse Ox 94 04/06/18 08:00 Intake & Output 04/05/18 04/06/18 04/06/18 18:59 06:59 18:59 Intake Total 1700 350 420 Output Total 2650 3500 975 Balance -950 -3150 -555 Weight 155 lb 3.2 oz 150 lb 1.6 oz Intake: IV Fluids 1300 LR 1300 Oral 400 350 420 Output: Urine 1150 0 Cole 1500 3500 975 Other: # Bowel Movements 1 0 Laboratory Last Values WBC 6.1 10^3/ul (3.5-10.8) 04/06/18 06:24 RBC 3.66 10^6/ul (4.00-5.40) L 04/06/18 06:24 Hgb 11.1 g/dl (14.0-18.0) L 04/06/18 06:24 Hct 32 % (42-52) L 04/06/18 06:24 MCV 89 fL (80-94) 04/06/18 06:24 MCH 30 pg (27-31) 04/06/18 06:24 MCHC 34 g/dl (31-36) 04/06/18 06:24 RDW 13 % (10.5-15) 04/06/18 06:24 Plt Count 343 10^3/ul (150-450) 04/06/18 06:24 MPV 6.7 um3 (7.4-10.4) L 04/06/18 06:24 Neut % (Auto) Not Reportable 04/06/18 06:24 Lymph % (Auto) Not Reportable 04/06/18 06:24 Harris % (Auto) Not Reportable 04/06/18 06:24 Eos % (Auto) Not Reportable 04/06/18 06:24 Baso % (Auto) Not Reportable 04/06/18 06:24 Absolute Neuts (auto) 3.6 10^3/ul (1.5-7.7) 04/06/18 06:24 Absolute Lymphs (auto) 1.1 10^3/ul (1.0-4.8) 04/06/18 06:24 Absolute Monos (auto) 1.4 10^3/ul (0-0.8) H 04/06/18 06:24 Absolute Eos (auto) 0 10^3/ul (0-0.6) 04/06/18 06:24 Absolute Basos (auto) 0 10^3/ul (0-0.2) 04/06/18 06:24 Absolute Nucleated RBC 0 10^3/ul 04/06/18 06:24 Neutrophils % 61 % (38-83) 04/06/18 06:24 Lymphocytes % 21 % (25-47) L 04/06/18 06:24 Reactive Lymphs % 2 % (0-6) 04/06/18 06:24 Monocytes % 16 % (0-7) H 04/06/18 06:24 Eosinophils % 0 % (0-6) 04/06/18 06:24 Basophils % 0 % (0-2) 04/06/18 06:24 Nucleated RBC % Not Reportable 04/06/18 06:24 Abs Neuts (Manual) 3.7 10^3/ul (1.5-7.7) 04/06/18 06:24 Abs Lymphs (Manual) 1.3 10^3/ul (1.0-4.8) 04/06/18 06:24 Abs Monocytes (Manual) 1.0 10^3/ul (0-0.8) H 04/06/18 06:24 Absolute Eos (Manual) 0 10^3/ul (0-0.6) 04/06/18 06:24 Abs Basophils (Manual) 0 10^3/ul (0-0.2) 04/06/18 06:24 Normal RBC Morphology Normal (Normal) 04/06/18 06:24 Hem Pathologist Commnt 04/06/18 06:24 INR (Anticoag Therapy) 0.98 (0.77-1.02) 04/01/18 05:52 APTT 29.4 seconds (26.0-36.3) 03/31/18 12:57 Sodium 132 mmol/L (135-145) L 04/06/18 06:24 Potassium 3.6 mmol/L (3.5-5.0) 04/06/18 06:24 Chloride 98 mmol/L (101-111) L 04/06/18 06:24 Carbon Dioxide 28 mmol/L (22-32) 04/06/18 06:24 Anion Gap 6 mmol/L (2-11) 04/06/18 06:24 BUN 4 mg/dL (6-24) L 04/06/18 06:24 Creatinine 0.50 mg/dL (0.67-1.17) L 04/06/18 06:24 Est GFR ( Amer) 197.8 (>60) 04/06/18 06:24 Est GFR (Non-Af Amer) 163.5 (>60) 04/06/18 06:24 BUN/Creatinine Ratio 8.0 (8-20) 04/06/18 06:24 Glucose 88 mg/dL (70-100) 04/06/18 06:24 Serum Osmolality 269 mOsm/kg (275-295) L 03/31/18 04:52 Lactic Acid 1.2 mmol/L (0.5-2.0) 04/04/18 18:01 Calcium 8.3 mg/dL (8.6-10.3) L 04/06/18 06:24 Magnesium 1.9 mg/dL (1.9-2.7) 04/03/18 07:37 Total Bilirubin 0.50 mg/dL (0.2-1.0) 03/31/18 04:52 AST 24 U/L (13-39) 03/31/18 04:52 ALT 11 U/L (7-52) 03/31/18 04:52 Alkaline Phosphatase 130 U/L (34-104) H 03/31/18 04:52 C-Reactive Protein 93.95 mg/L (<8.01) H 04/06/18 06:24 Total Protein 7.2 g/dL (6.4-8.9) 03/31/18 04:52 Albumin 3.8 g/dL (3.2-5.2) 03/31/18 04:52 Globulin 3.4 g/dL (2-4) 03/31/18 04:52 Albumin/Globulin Ratio 1.1 (1-3) 03/31/18 04:52 Prostate Specific Ag < 0.008 ng/mL (0-4.000) 04/05/18 07:01 TSH 2.35 mcIU/mL (0.34-5.60) 03/31/18 04:52 Cortisol 18.89 mcg/dL 03/31/18 04:52 Urine Color Straw 04/04/18 21:30 Urine Appearance Cloudy 04/04/18 21:30 Urine pH 8.0 (5-9) 04/04/18 21:30 Ur Specific [place] 1.003 (1.010-1.030) L 04/04/18 21:30 Urine Protein Negative (Negative) 04/04/18 21:30 Urine Ketones Negative (Negative) 04/04/18 21:30 Urine Blood 3+ (Negative) A 04/04/18 21:30 Urine Nitrate Positive (Negative) A 04/04/18 21:30 Urine Bilirubin Negative (Negative) 04/04/18 21:30 Urine Urobilinogen Negative (Negative) 04/04/18 21:30 Ur Leukocyte Esterase 3+ (Negative) A 04/04/18 21:30 Urine WBC (Auto) 3+(>20/hpf) (Absent) A 04/04/18 21:30 Urine RBC (Auto) 2+(6-10/hpf) (Absent) A 04/04/18 21:30 Urine Bacteria 1+ (Absent) A 04/04/18 21:30 Urine Osmolality 293 mOsm/kg (150-1150) 04/01/18 02:28 Ur Random Sodium 57 mmol/L 04/01/18 02:28 Urine Glucose Negative (Negative) 04/04/18 21:30 General: Well appearing, NAD, sitting at the edge of the bed RUE: Sling in place no obvious deformity at shoulder, no tenderness to palpation over shoulder joint. Able to flex and extend at elbow and wrist. Okay sign and thumbs up intact. Radial pulse 2+ LLE: No tenderness to palpation of left hip or thigh. DF/PF intact. 2+ DP pulse BL calves supple and nontender without palpable cords Assessment: []72 yo M with R shoulder dislocation reduced under anesthesia in the ED. He also has a recent left hip fracture involving the greater trochanter. Plan: R shoulder NWB, sling WBAT with a cane or rolling walker. No active abduction at hip Cont PT/OT Orthopedically stable for DC, DC when medically ready Follow up with ortho - Dr. Menezes - 7 days after discharge - call [phone]
[2018-04-06] MEDS: Levofloxacin 500 MG IVPREMIX(* 500 MG/100 ML BAG IVPB SCH (15:18)
[2018-04-06] MEDS: Levofloxacin TAB* 500 MG PO SCH (15:29)
[2018-04-06] MEDS: Atorvastatin* 10 MG TAB PO SCH (18:17)
[2018-04-06] MEDS: Albuterol HFA INHALER* 8 gm MDI INH PRN (21:17)
[2018-04-06] MEDS: Senna TAB PO SCH (21:17)
[2018-04-07] MEDS: Acetaminophen TAB* 325 MG PO PRN ×3 (02:07→21:20)
[2018-04-07 06:25] LABS: Hematocrit 32 % (42-52); Hemoglobin 11.2 g/dl (14.0-18.0); Mean Corpuscular HGB Conc 36 g/dl (31-36); Mean Corpuscular Hemoglobin 31 pg (27-31); Mean Corpuscular Volume 87 fL (80-94); Mean Platelet Volume 6.6 um3 (7.4-10.4); Platelet Count 361 10^3/ul (150-450); Red Blood Count 3.62 10^6/ul (4.00-5.40); Red Cell Distribution Width 13 % (10.5-15); White Blood Count 8.3 10^3/ul (3.5-10.8)
[2018-04-07 06:35] LABS: EGFR Non-African American 167.3 (>60)
[2018-04-07 06:48] LABS: ABS Basophils 0.1 10^3/ul (0-0.2); ABS Eosinophils 0.1 10^3/ul (0-0.6); ABS Lymphocytes 1.2 10^3/ul (1.0-4.8); ABS Monocytes 1.7 10^3/ul (0-0.8); ABS Neutrophils 5.2 10^3/ul (1.5-7.7); ABS Nucleated RBC 0 10^3/ul; Eosinophil % 0.9 % (0-6); Lymphocyte % 14.5 % (25-47); Nucleated Red Blood Cells % 0
[2018-04-07] MEDS: Folic Acid TAB* 1 MG PO SCH (09:22)
[2018-04-07] MEDS: Montelukast Sodium TAB* 10 MG PO SCH (09:23)
[2018-04-07] MEDS: Metoprolol Succinate XL TAB* 50 MG PO SCH (09:23)
[2018-04-07] MEDS: Thiamine TAB* 100 MG TAB PO SCH (09:23)
[2018-04-07] MEDS: Docusate CAP* 100 MG PO SCH ×2 (09:24→21:20)
[2018-04-07] MEDS: Multivitamins/Minerals TAB PO SCH (09:24)
[2018-04-07] MEDS ORDERED: NS 0.9% 1000 ML* 1,000 ML IV SCH (10:30)
[2018-04-07] MEDS ORDERED: oxyCODONE TAB* 5 MG TAB PO ONE (12:31)
[2018-04-07] MEDS ORDERED: HYDROcodone/ACETAMIN 5-325 MG* 1 TAB PO PRN (13:32)
[2018-04-07] MEDS ORDERED: Potassium Chlor TAB* 20 MEQ TAB.ER PO ONE (13:37)
--- NOTE | 2018-04-07 13:38 | PN ---
Subjective Date of Service: 04/07/18 Interval History: Pt reports he is ambulating well and was able to use a cane today with a steady gait. he reports left hip pain, no radiation. otherwise he reports he feels well. No dizziness or COX. No SOB/CP. No fevers or chills. reports good appetite. Denies abdominal pain. Family History: Unchanged from Admission Social History: Unchanged from Admission Past Medical History: Unchanged from Admission Objective Active Medications: Acetaminophen (Tylenol Tab*) 650 mg PO Q4H PRN PRN Reason: PAIN Last Admin: 04/07/18 09:30 Dose: 650 mg Hydrocodone Bitart/Acetaminophen ([place] 5-325 Tab*) 1 tab PO Q4H PRN PRN Reason: PAIN Albuterol (Ventolin Hfa Inhaler*) 1 puff INH Q4HR PRN PRN Reason: SHORTNESS OF BREATH Last Admin: 04/06/18 21:17 Dose: 1 puff Atorvastatin Calcium (Lipitor*) 10 mg PO QPM [facility] Last Admin: 04/06/18 18:17 Dose: 10 mg Docusate Sodium (Colace Cap*) 100 mg PO BID [facility] Last Admin: 04/07/18 09:24 Dose: 100 mg Folic Acid (Folvite Tab*) 1 mg PO DAILY [facility] Last Admin: 04/07/18 09:22 Dose: 1 mg Sodium Chloride (Ns 0.9% 1000 Ml*) 1,000 mls @ 125 mls/hr IV PER RATE [facility] Stop: 04/07/18 18:29 Last Admin: 04/07/18 12:06 Dose: 125 mls/hr Levofloxacin (Levaquin Tab*) 500 mg PO Q24H [facility] Last Admin: 04/06/18 15:29 Dose: 500 mg Lidocaine HCl (Lidocaine 2% Jelly*) 1 applic TOPICAL TID PRN PRN Reason: PAIN Magnesium Hydroxide (Milk Of Magnesia Liq*) 30 ml PO Q6H PRN PRN Reason: CONSTIPATION Metoprolol Succinate (Toprol Xl Tab*) 50 mg PO DAILY [facility] Last Admin: 04/07/18 09:23 Dose: 50 mg Montelukast Sodium (Singulair Tab*) 10 mg PO DAILY [facility] Last Admin: 04/07/18 09:23 Dose: 10 mg Multivitamins/Minerals (Theragran/Minerals Tab*) 1 tab PO DAILY [facility] Last Admin: 04/07/18 09:24 Dose: 1 tab Senna (Senokot Tab*) 2 tab PO BEDTIME [facility] Last Admin: 04/06/18 21:17 Dose: 2 tab Thiamine HCl (Vitamin B-1 Tab*) 100 mg PO DAILY [facility] Last Admin: 04/07/18 09:23 Dose: 100 mg Throat Lozenges (Chloraseptic Anastasia*) 1 anastasia PO Q4H PRN PRN Reason: SORE THROAT Last Admin: 04/02/18 21:04 Dose: 1 anastasia Vital Signs - 8 hr 04/07/18 04/07/18 07:35 12:49 Temperature 97.4 F Pulse Rate 86 Respiratory 17 18 Rate Blood Pressure 125/63 (mmHg) O2 Sat by Pulse 97 Oximetry Oxygen Devices in Use Now: None Appearance: 72 yo male sitting up on the side of his bed in NAD, A+Ox3 Eyes: No Scleral Icterus, PERRLA Ears/Nose/Mouth/Throat: NL Teeth, Lips, Gums, Mucous Membranes Moist Neck: NL Appearance and Movements; NL JVP Respiratory: Symmetrical Chest Expansion and Respiratory Effort, Clear to Auscultation Cardiovascular: NL Sounds; No Murmurs; No JVD, RRR Abdominal: NL Sounds; No Tenderness; No Distention Extremities: No Clubbing, Cyanosis, - - 1+ LE edema b/l Neurological: Alert and Oriented x 3, NL Sensation, NL Gait, NL Muscle Strength and Tone Lines/Tubes/Other Access: Clean, Dry and Intact Zavala - draining clear yellow urine, Clean, Dry and Intact Peripheral IV Nutrition: Taking PO's Result Diagrams: 04/07/18 06:12 04/07/18 06:12 Additional Lab and Data: Microbiology and Other Data: Microbiology 03/30/18 21:07 Urine Culture - Final Urine 03/31/18 04:52 Aerobic Blood Culture - Preliminary Blood Venous No Growth Day 1 Anaerobic Blood Culture - Preliminary No Growth Day 1 Diagnostic Imaging: CHEST AP PORTABLE Exam Date: 03/31/18438 IMPRESSION: HYPERINFLATION. NO ACTIVE CARDIOPULMONARY DISEASE. EKG Data: EKG 03/18/18 - Sinus rhythm, rate 92. Nonspecific ST changes, and prolonged QT at 508. No acute signs of ischemia. Assess/Plan/Problems-Billing Assessment: 72 yo male who who presented to the ER on 7/5 after he was evaluated the day prior in the ER for a fall found to have a dislocated shoulder , he then returned to the ER with c/o left hip pain found to have a left hip fracture - Patient Problems (1) Acute urinary retention Comment: - Acute on chronic - post obstructive - - Zavala placed in OR 04/04 by urology - Urology consult, input appreciated - continue irrigating PRN - urology reports lots of mucous when zavala was placed - zavala draining well. - CT pelvis - showing bladder wall thickening suspicous for cystitis, left side suggested possible mass? He will need f/u with urology. kidneys u/s normal - no hydronephrosis. - PSA normal (2) UTI (urinary tract infection) Comment: - afebrile > 24 hours - urine cx negative - no other obvious source. CRP tredning down - Blood cx NTD, urine cx NTD -Continue Levaquin per urology (3) Electrolyte abnormality Comment: - Hypokalemia. Resolved after replacement - Hypomagnesemia. Resolved after replacement (4) Hyponatremia Comment: - Improved with IVFs, IVFs DC's yesterday - high volume U/O - IVF restarted and will recheck this afternoon (5) Dislocation of right shoulder joint Comment: - Anterior dislocation - S/P reduction in the ED on 03/[address] Menezes - Arm to remain in sling at all times, non-weight bearing - Follow-up with orthopedics outpatient (6) Greater trochanter fracture Comment: - Left - Non-operative, plan for weight bearing as tolerated. No actice abduction at hip. - Continue PT/OT - Management per Orthopedics with outpatient follow-up in 7 days after discharge (7) Alcoholism Comment: - No signs of active withdrawal at this time - DC WAM protocol (8) COPD (chronic obstructive pulmonary disease) Comment: - No sign of acute exacerbation at this time - Continue sinulair and albuterol PRN (9) HLD (hyperlipidemia) Comment: - Continue statin (10) HTN (hypertension) Comment: - Mostly normotensive, SBP 100-150's - Continue metoprolol (11) Prostate cancer Comment: - With acute on chronic urinary retention - Follow-up with Urology outpatient (12) DNR (do not resuscitate) (13) DVT prophylaxis Comment: - SQ heparin Status and Disposition: Inpatient. Plan for discharge possibly tomorrow. Monitoring hyponatremia
[2018-04-07] MEDS: Levofloxacin TAB* 500 MG PO SCH (14:22)
[2018-04-07] MEDS: Atorvastatin* 10 MG TAB PO SCH (17:35)
[2018-04-07] MEDS: Senna TAB PO SCH (21:20)
[2018-04-07] MEDS: Albuterol HFA INHALER* 8 gm MDI INH PRN (21:24)
[2018-04-08 07:27] LABS: EGFR Non-African American 159.8 (>60)
[2018-04-08] MEDS: Thiamine TAB* 100 MG TAB PO SCH (08:41)
[2018-04-08] MEDS: Multivitamins/Minerals TAB PO SCH (08:41)
[2018-04-08] MEDS: Folic Acid TAB* 1 MG PO SCH (08:41)
[2018-04-08] MEDS: Docusate CAP* 100 MG PO SCH ×2 (08:41→20:56)
[2018-04-08] MEDS: Metoprolol Succinate XL TAB* 50 MG PO SCH (08:41)
[2018-04-08] MEDS: Montelukast Sodium TAB* 10 MG PO SCH (08:41)
--- NOTE | 2018-04-08 11:03 | DCNOTE ---
Subjective Date of Service: 04/08/18 Interval History: patient reports his pain is controlled. he is ambulating well with a steady gait. Reports good appetite. No fevers or chills. DUE TO HIGH URINE OUTPUT WILL NOT DISCHARGED PATIENT TODAY. Family History: Unchanged from Admission Social History: Unchanged from Admission Past Medical History: Unchanged from Admission Objective Active Medications: Acetaminophen (Tylenol Tab*) 650 mg PO Q4H PRN PRN Reason: PAIN Last Admin: 04/07/18 21:20 Dose: 650 mg Hydrocodone Bitart/Acetaminophen ([place] 5-325 Tab*) 1 tab PO Q4H PRN PRN Reason: PAIN Albuterol (Ventolin Hfa Inhaler*) 1 puff INH Q4HR PRN PRN Reason: SHORTNESS OF BREATH Last Admin: 04/07/18 21:24 Dose: 1 puff Atorvastatin Calcium (Lipitor*) 10 mg PO QPM [facility] Last Admin: 04/07/18 17:35 Dose: 10 mg Docusate Sodium (Colace Cap*) 100 mg PO BID [facility] Last Admin: 04/08/18 08:41 Dose: 100 mg Folic Acid (Folvite Tab*) 1 mg PO DAILY [facility] Last Admin: 04/08/18 08:41 Dose: 1 mg Levofloxacin (Levaquin Tab*) 500 mg PO Q24H [facility] Last Admin: 04/07/18 14:22 Dose: 500 mg Lidocaine HCl (Lidocaine 2% Jelly*) 1 applic TOPICAL TID PRN PRN Reason: PAIN Magnesium Hydroxide (Milk Of Magnesia Liq*) 30 ml PO Q6H PRN PRN Reason: CONSTIPATION Metoprolol Succinate (Toprol Xl Tab*) 50 mg PO DAILY [facility] Last Admin: 04/08/18 08:41 Dose: 50 mg Montelukast Sodium (Singulair Tab*) 10 mg PO DAILY [facility] Last Admin: 04/08/18 08:41 Dose: 10 mg Multivitamins/Minerals (Theragran/Minerals Tab*) 1 tab PO DAILY [facility] Last Admin: 04/08/18 08:41 Dose: 1 tab Senna (Senokot Tab*) 2 tab PO BEDTIME [facility] Last Admin: 04/07/18 21:20 Dose: 2 tab Thiamine HCl (Vitamin B-1 Tab*) 100 mg PO DAILY [facility] Last Admin: 04/08/18 08:41 Dose: 100 mg Throat Lozenges (Chloraseptic Anastasia*) 1 anastasia PO Q4H PRN PRN Reason: SORE THROAT Last Admin: 04/02/18 21:04 Dose: 1 anastasia Vital Signs - 8 hr 04/08/18 04/08/18 03:18 07:45 Temperature 98.6 F 98.2 F Pulse Rate 80 75 Respiratory 16 17 Rate Blood Pressure 112/61 127/73 (mmHg) O2 Sat by Pulse 98 98 Oximetry Oxygen Devices in Use Now: None Appearance: A+O x3 in NAD Eyes: No Scleral Icterus, PERRLA Ears/Nose/Mouth/Throat: NL Teeth, Lips, Gums, Mucous Membranes Moist Neck: NL Appearance and Movements; NL JVP Respiratory: Symmetrical Chest Expansion and Respiratory Effort, Clear to Auscultation Cardiovascular: NL Sounds; No Murmurs; No JVD, RRR, - - 1+ LE edema Abdominal: NL Sounds; No Tenderness; No Distention Extremities: No Clubbing, Cyanosis, - - right arm in sling Skin: No Rash or Ulcers, No Nodules or Sclerosis Neurological: Alert and Oriented x 3, NL Sensation, NL Muscle Strength and Tone Lines/Tubes/Other Access: Clean, Dry and Intact Zavala - draining clear yellow urine Nutrition: Taking PO's Result Diagrams: 04/07/18 06:12 04/08/18 06:19 Additional Lab and Data: Microbiology and Other Data: Microbiology 03/30/18 21:07 Urine Culture - Final Urine 03/31/18 04:52 Aerobic Blood Culture - Preliminary Blood Venous No Growth Day 1 Anaerobic Blood Culture - Preliminary No Growth Day 1 Diagnostic Imaging: CHEST AP PORTABLE Exam Date: 03/31/18438 IMPRESSION: HYPERINFLATION. NO ACTIVE CARDIOPULMONARY DISEASE. EKG Data: EKG 03/18/18 - Sinus rhythm, rate 92. Nonspecific ST changes, and prolonged QT at 508. No acute signs of ischemia. Assess/Plan/Problems-Billing Assessment: 72 yo male who who presented to the ER on 03/31 after he was evaluated the day prior in the ER for a fall found to have a dislocated shoulder , he then returned to the ER with c/o left hip pain found to have a left hip fracture - Patient Problems (1) Acute urinary retention Comment: - Acute on chronic - post obstructive - - Zavala placed in OR 04/04 by urology along with urethral dilitation - Urology consult, input appreciated - zavala draining well, no further mucous plugs. Plan to keep zavala in and f/u with urology in 3 weeks, then may be able to go back to straight cath. D/t high urine output now keeping for monitoring of output and sodium level. Was kept yesterday for hyponatremia and was given fluids (yesterday output had decreased) now > 6l over 24 hours. Continues to monitor closely - CT pelvis - showing bladder wall thickening suspicous for cystitis, left side suggested possible mass? He will need f/u with urology. kidneys u/s normal - no hydronephrosis. - PSA normal (2) UTI (urinary tract infection) Comment: - afebrile > 48 hours - urine cx negative - no other obvious source. CRP trending down - Blood cx NTD, urine cx NTD -Continue Levaquin DAY 01/31 (3) Electrolyte abnormality Comment: - Hypokalemia. Resolved after replacement - Hypomagnesemia. Resolved after replacement (4) Hyponatremia Comment: - Improved today with IVFs given yesterday - however now concerned he has had > 6L over 24 hours. Will recheck sodium level this afternoon, continues to monitor u/o (5) Dislocation of right shoulder joint Comment: - Anterior dislocation - S/P reduction in the ED on 03/[address] Menezes - Arm to remain in sling at all times, non-weight bearing - Follow-up with orthopedics outpatient (6) Greater trochanter fracture Comment: - Left - Non-operative, plan for weight bearing as tolerated. No actice abduction at hip. - Continue PT/OT - Management per Orthopedics with outpatient follow-up in 7 days after discharge (7) Alcoholism Comment: - No signs of active withdrawal at this time - DC WAM protocol (8) COPD (chronic obstructive pulmonary disease) Comment: - No sign of acute exacerbation at this time - Continue sinulair and albuterol PRN (9) HLD (hyperlipidemia) Comment: - Continue statin (10) HTN (hypertension) Comment: - Mostly normotensive, SBP 100-150's - Continue metoprolol (11) Prostate cancer Comment: - With acute on chronic urinary retention - Follow-up with Urology outpatient - PSA normal (12) DNR (do not resuscitate) (13) DVT prophylaxis Comment: - SQ heparin Status and Disposition: Inpatient. Continue to monitor sodium and u/o. Tentative plan for DC to [facility] on Wednesday
[2018-04-08] MEDS: Acetaminophen TAB* 325 MG PO PRN ×2 (15:26→20:48)
[2018-04-08] MEDS: Levofloxacin TAB* 500 MG PO SCH (15:26)
[2018-04-08] MEDS: Atorvastatin* 10 MG TAB PO SCH (17:44)
[2018-04-08] MEDS: Albuterol HFA INHALER* 8 gm MDI INH PRN (20:44)
[2018-04-08] MEDS: Senna TAB PO SCH (20:56)
[2018-04-09 06:39] LABS: ABS Basophils 0 10^3/ul (0-0.2); ABS Eosinophils 0.1 10^3/ul (0-0.6); ABS Lymphocytes 1.6 10^3/ul (1.0-4.8); ABS Monocytes 1.5 10^3/ul (0-0.8); ABS Neutrophils 4.2 10^3/ul (1.5-7.7); ABS Nucleated RBC 0 10^3/ul; Hematocrit 33 % (42-52); Hemoglobin 11.4 g/dl (14.0-18.0); Lymphocyte % 21.8 % (25-47); Mean Corpuscular HGB Conc 34 g/dl (31-36); Mean Corpuscular Hemoglobin 30 pg (27-31); Mean Corpuscular Volume 88 fL (80-94); Mean Platelet Volume 6.7 um3 (7.4-10.4); Nucleated Red Blood Cells % 0.1; Platelet Count 426 10^3/ul (150-450); Red Blood Count 3.78 10^6/ul (4.00-5.40); Red Cell Distribution Width 13 % (10.5-15); White Blood Count 7.5 10^3/ul (3.5-10.8)
[2018-04-09 06:56] LABS: EGFR Non-African American 159.8 (>60)
[2018-04-09] MEDS: Acetaminophen TAB* 325 MG PO PRN (08:42)
[2018-04-09] MEDS: Thiamine TAB* 100 MG TAB PO SCH (08:42)
[2018-04-09] MEDS: Metoprolol Succinate XL TAB* 50 MG PO SCH (08:42)
[2018-04-09] MEDS: Folic Acid TAB* 1 MG PO SCH (08:43)
[2018-04-09] MEDS: Multivitamins/Minerals TAB PO SCH (08:43)
[2018-04-09] MEDS: Montelukast Sodium TAB* 10 MG PO SCH (08:43)
[2018-04-09] MEDS: Docusate CAP* 100 MG PO SCH ×2 (08:45→22:02)
[2018-04-09] MEDS ORDERED: Morphine TAB Extended Release (*) 30 MG TAB.ER PO SCH (16:00)
--- NOTE | 2018-04-09 16:14 | PN ---
Subjective Date of Service: 04/09/18 Interval History: Pt seen and examined. Meds and labs reviewed. Pt feels better and mentions she is not on O2 at home. ROS: Complains of HAINES. Denied COX/dizziness, F/C, N/V, CP, SOB, increased cough , sputum production, abd pain, diarrhea, constipation, dysuria, myalgias, arthralgias, throat pain, and new skin lesions. The rest of the 14 point ROS are unremarkable. PHYSICAL EXAM: GEN APPEARANCE: Awake, not in acute distress HEENT: NC/AT, PERRLA, moist oral mucosa, (-) throat erythema NECK: Soft, supple, (-) cervical LAD, (-)JVD HEART: S1S2 WNL, RRR, No MRG CHEST: Bibasal crackles, GAE, No W/R/R ABD: Soft, ND/NT, NABS 4x Q EXT: No C/C/BLLE 2+ edema SKIN: Warm to touch PSYCH: No active psychosis, hallucinations, depression, SI/HI Family History: Unchanged from Admission Social History: Unchanged from Admission Past Medical History: Unchanged from Admission Objective Active Medications: Acetaminophen (Tylenol Tab*) 650 mg PO Q4H PRN PRN Reason: PAIN Last Admin: 04/09/18 08:42 Dose: 650 mg Hydrocodone Bitart/Acetaminophen ([place] 5-325 Tab*) 1 tab PO Q4H PRN PRN Reason: PAIN Albuterol (Ventolin Hfa Inhaler*) 1 puff INH Q4HR PRN PRN Reason: SHORTNESS OF BREATH Last Admin: 04/08/18 20:44 Dose: 1 puff Atorvastatin Calcium (Lipitor*) 10 mg PO QPM [facility] Last Admin: 04/08/18 17:44 Dose: 10 mg Docusate Sodium (Colace Cap*) 100 mg PO BID [facility] Last Admin: 04/09/18 08:45 Dose: Not Given Folic Acid (Folvite Tab*) 1 mg PO DAILY [facility] Last Admin: 04/09/18 08:43 Dose: 1 mg Levofloxacin (Levaquin Tab*) 500 mg PO Q24H [facility] Last Admin: 04/08/18 15:26 Dose: 500 mg Lidocaine HCl (Lidocaine 2% Jelly*) 1 applic TOPICAL TID PRN PRN Reason: PAIN Magnesium Hydroxide (Milk Of Magnesia Liq*) 30 ml PO Q6H PRN PRN Reason: CONSTIPATION Metoprolol Succinate (Toprol Xl Tab*) 50 mg PO DAILY [facility] Last Admin: 04/09/18 08:42 Dose: 50 mg Montelukast Sodium (Singulair Tab*) 10 mg PO DAILY [facility] Last Admin: 04/09/18 08:43 Dose: 10 mg Morphine Sulfate (Ms Contin(*)) 10 mg PO Q12H [facility] Multivitamins/Minerals (Theragran/Minerals Tab*) 1 tab PO DAILY [facility] Last Admin: 04/09/18 08:43 Dose: 1 tab Senna (Senokot Tab*) 2 tab PO BEDTIME [facility] Last Admin: 04/08/18 20:56 Dose: Not Given Thiamine HCl (Vitamin B-1 Tab*) 100 mg PO DAILY [facility] Last Admin: 04/09/18 08:42 Dose: 100 mg Throat Lozenges (Chloraseptic Anastasia*) 1 anastasia PO Q4H PRN PRN Reason: SORE THROAT Last Admin: 04/02/18 21:04 Dose: 1 anastasia Vital Signs - 8 hr 04/09/18 11:29 Temperature 99.0 F Pulse Rate 83 Blood Pressure 99/53 (mmHg) O2 Sat by Pulse 96 Oximetry Oxygen Devices in Use Now: None Result Diagrams: 04/09/18 06:20 04/09/18 06:20 Additional Lab and Data: Microbiology and Other Data: Microbiology 03/30/18 21:07 Urine Culture - Final Urine 03/31/18 04:52 Aerobic Blood Culture - Preliminary Blood Venous No Growth Day 1 Anaerobic Blood Culture - Preliminary No Growth Day 1 Diagnostic Imaging: CHEST AP PORTABLE Exam Date: 03/31/18438 IMPRESSION: HYPERINFLATION. NO ACTIVE CARDIOPULMONARY DISEASE. EKG Data: EKG 03/18/18 - Sinus rhythm, rate 92. Nonspecific ST changes, and prolonged QT at 508. No acute signs of ischemia. Assess/Plan/Problems-Billing Assessment: 72 yo male who who presented to the ER on 03/31 after he was evaluated the day prior in the ER for a fall found to have a dislocated shoulder , he then returned to the ER with c/o left hip pain found to have a left hip fracture - Patient Problems (1) Acute urinary retention Current Visit: Yes Status: Acute Code(s): R33.8 - OTHER RETENTION OF URINE SNOMED Code(s): 238663457 Comment: - Acute on chronic - post obstructive - - Zavala placed in OR 04/04 by urology along with urethral dilitation - Urology consult, input appreciated - zavala draining well, no further mucous plugs. Plan to keep zavala in and f/u with urology in 3 weeks, then may be able to go back to straight cath. D/t high urine output now keeping for monitoring of output; Sodium level improving. - CT pelvis - showing bladder wall thickening suspicous for cystitis, left side suggested possible mass? He will need f/u with urology. kidneys u/s normal - no hydronephrosis. - PSA normal (2) UTI (urinary tract infection) Current Visit: Yes Status: Acute Comment: - afebrile > 48 hours - urine cx negative - no other obvious source. CRP trending down - Blood cx NTD, urine cx NTD -Continue Levaquin DAY 03/03 (3) Pain Current Visit: Yes Status: Acute Code(s): R52 - PAIN, UNSPECIFIED SNOMED Code(s): 93165527 Comment: -Will place pt on Morphine SR and continue PRN pain meds -Will continue watchful waiting (4) Lower extremity edema Current Visit: Yes Status: Acute Code(s): R60.0 - LOCALIZED EDEMA SNOMED Code(s): 717026306 Comment: -Likely due to fracture and urinary retentionpt mentions it has improved from previous -Will obtain Doppler U/S to R/O DVTs (5) Hyponatremia Current Visit: Yes Status: Acute Code(s): E87.1 - HYPO-OSMOLALITY AND HYPONATREMIA SNOMED Code(s): 39236592 Comment: - Improved today with IVFs given yesterday - however now concerned he has had > 6L over 24 hours. Will recheck sodium level this afternoon, continues to monitor u/o (6) Dislocation of right shoulder joint Current Visit: Yes Status: Acute Code(s): S43.004A - UNSPECIFIED DISLOCATION OF RIGHT SHOULDER JOINT, INIT ENCNTR SNOMED Code(s): 690604023 Comment: - Anterior dislocation - S/P reduction in the ED on 03/[address] Menezes - Arm to remain in sling at all times, non-weight bearing - Follow-up with orthopedics outpatient (7) Greater trochanter fracture Current Visit: Yes Status: Acute Code(s): S72.113A - DISP FX OF GREATER TROCHANTER OF UNSP FEMUR, INIT SNOMED Code(s): 800800964 Comment: - Left - Non-operative, plan for weight bearing as tolerated. No actice abduction at hip. - Continue PT/OT - Management per Orthopedics with outpatient follow-up in 7 days after discharge (8) Alcoholism Current Visit: Yes Status: Chronic Code(s): F10.20 - ALCOHOL DEPENDENCE, UNCOMPLICATED SNOMED Code(s): 3355375 Comment: - No signs of active withdrawal at this time - Advised life-style modifications (9) COPD (chronic obstructive pulmonary disease) Current Visit: No Status: Chronic Code(s): J44.9 - CHRONIC OBSTRUCTIVE PULMONARY DISEASE, UNSPECIFIED SNOMED Code(s): 51777787 Comment: - No sign of acute exacerbation at this time - Continue singulair and albuterol PRN (10) HLD (hyperlipidemia) Current Visit: No Status: Chronic Code(s): E78.5 - HYPERLIPIDEMIA, UNSPECIFIED SNOMED Code(s): 75306243 Comment: - Continue statin (11) HTN (hypertension) Current Visit: Yes Status: Chronic Code(s): I10 - ESSENTIAL (PRIMARY) HYPERTENSION SNOMED Code(s): 95534282 Comment: - Mostly normotensive, SBP 100-150's - Continue metoprolol (12) Prostate cancer Current Visit: Yes Status: Chronic Code(s): C61 - MALIGNANT NEOPLASM OF PROSTATE SNOMED Code(s): 875713202 Comment: - With acute on chronic urinary retention - Follow-up with Urology outpatient - PSA normal (13) DVT prophylaxis Current Visit: Yes Status: Acute Code(s): [id number] - SNOMED Code(s): 920841416 Comment: - SQ heparin Status and Disposition: For possible D/C to [facility] on Wednesday
[2018-04-09] MEDS ORDERED: Morphine TAB Extended Release (*) 15 MG TAB.ER PO SCH (16:30)
[2018-04-09] MEDS: Acetaminophen TAB* 325 MG PO SCH (17:01)
[2018-04-09] MEDS: Atorvastatin* 10 MG TAB PO SCH (17:02)
[2018-04-09] MEDS: Levofloxacin TAB* 500 MG PO SCH (17:02)
[2018-04-09] MEDS: Senna TAB PO SCH (22:02)
[2018-04-10] MEDS: Acetaminophen TAB* 325 MG PO SCH ×2 (03:44→16:31)
[2018-04-10 06:49] LABS: ABS Basophils 0.1 10^3/ul (0-0.2); ABS Eosinophils 0.1 10^3/ul (0-0.6); ABS Monocytes 1.2 10^3/ul (0-0.8); ABS Neutrophils 3.9 10^3/ul (1.5-7.7); ABS Nucleated RBC 0 10^3/ul; Eosinophil % 1.3 % (0-6); Hematocrit 35 % (42-52); Lymphocyte % 27.6 % (25-47); Mean Corpuscular HGB Conc 34 g/dl (31-36); Mean Corpuscular Hemoglobin 30 pg (27-31); Mean Corpuscular Volume 88 fL (80-94); Mean Platelet Volume 6.6 um3 (7.4-10.4); Nucleated Red Blood Cells % 0.1; Platelet Count 516 10^3/ul (150-450); Red Blood Count 3.99 10^6/ul (4.00-5.40); Red Cell Distribution Width 13 % (10.5-15); White Blood Count 7.3 10^3/ul (3.5-10.8)
[2018-04-10 07:08] LABS: EGFR Non-African American 137.7 (>60)
[2018-04-10] MEDS: Folic Acid TAB* 1 MG PO SCH (08:52)
[2018-04-10] MEDS: Acetaminophen TAB* 325 MG PO PRN (09:34)
[2018-04-10] MEDS: Multivitamins/Minerals TAB PO SCH (09:34)
[2018-04-10] MEDS: Thiamine TAB* 100 MG TAB PO SCH (09:34)
[2018-04-10] MEDS: Metoprolol Succinate XL TAB* 50 MG PO SCH (09:34)
[2018-04-10] MEDS: Montelukast Sodium TAB* 10 MG PO SCH (09:34)
[2018-04-10] MEDS: Docusate CAP* 100 MG PO SCH ×2 (09:35→22:09)
--- NOTE | 2018-04-10 13:45 | RAD ---
HISTORY: Bilateral lower extremity edema TECHNIQUE: Multiple transverse and longitudinal ultrasound images were obtained of the veins of the bilateral lower extremities using grayscale, color Doppler, and spectral Doppler imaging with and without compression and with augmentation. FINDINGS: VEINS: The common femoral vein, deep femoral vein, femoral vein and popliteal vein are compressible throughout their course, with normal flow on color Doppler imaging and normal response to augmentation on spectral Doppler imaging. The left peroneal arteries are not visualized. SOFT TISSUES: Grossly normal. No large popliteal fossa cyst was identified. IMPRESSION: No sonographic evidence of femoral-popliteal deep vein thrombosis.
[2018-04-10] MEDS ORDERED: Levofloxacin TAB* 500 MG PO STA (15:44)
[2018-04-10] MEDS ORDERED: Furosemide IV* 10 MG/ML 2 ML VIAL (20 MG) IV ONE (15:51)
--- NOTE | 2018-04-10 15:51 | PN ---
Subjective Date of Service: 04/10/18 Interval History: Pt seen and examined. Meds and labs reviewed ROS: Denied COX/dizziness, F/C, N/V, CP, SOB, increased cough, sputum production , abd pain, diarrhea, constipation, dysuria, myalgias, arthralgias, throat pain , and new skin lesions. The rest of the 14 point ROS are unremarkable. PHYSICAL EXAM: GEN APPEARANCE: Awake, not in acute distress HEENT: NC/AT, PERRLA, moist oral mucosa, (-) throat erythema NECK: Soft, supple, (-) cervical LAD, (-)JVD HEART: S1S2 WNL, RRR, No MRG CHEST: CTA, BL, GAE, No W/R/R ABD: Soft, ND/NT, NABS 4x Q EXT: No C/C/BLLE 2+ SKIN: Warm to touch PSYCH: No active psychosis, hallucinations, depression, SI/HI Family History: Unchanged from Admission Social History: Unchanged from Admission Past Medical History: Unchanged from Admission Objective Active Medications: Acetaminophen (Tylenol Tab*) 650 mg PO Q4H PRN PRN Reason: PAIN Last Admin: 04/10/18 09:34 Dose: 650 mg Acetaminophen (Tylenol Tab*) 975 mg PO Q12H [facility] Last Admin: 04/10/18 03:44 Dose: 975 mg Hydrocodone Bitart/Acetaminophen ([place] 5-325 Tab*) 1 tab PO Q4H PRN PRN Reason: PAIN Albuterol (Ventolin Hfa Inhaler*) 1 puff INH Q4HR PRN PRN Reason: SHORTNESS OF BREATH Last Admin: 04/08/18 20:44 Dose: 1 puff Atorvastatin Calcium (Lipitor*) 10 mg PO QPM [facility] Last Admin: 04/09/18 17:02 Dose: 10 mg Docusate Sodium (Colace Cap*) 100 mg PO BID [facility] Last Admin: 04/10/18 09:35 Dose: Not Given Folic Acid (Folvite Tab*) 1 mg PO DAILY [facility] Last Admin: 04/10/18 08:52 Dose: 1 mg Levofloxacin (Levaquin Tab*) 500 mg PO ONCE STA Stop: 04/10/18 15:45 Lidocaine HCl (Lidocaine 2% Jelly*) 1 applic TOPICAL TID PRN PRN Reason: PAIN Magnesium Hydroxide (Milk Of Magnesia Liq*) 30 ml PO Q6H PRN PRN Reason: CONSTIPATION Metoprolol Succinate (Toprol Xl Tab*) 50 mg PO DAILY [facility] Last Admin: 04/10/18 09:34 Dose: 50 mg Montelukast Sodium (Singulair Tab*) 10 mg PO DAILY [facility] Last Admin: 04/10/18 09:34 Dose: 10 mg Multivitamins/Minerals (Theragran/Minerals Tab*) 1 tab PO DAILY [facility] Last Admin: 04/10/18 09:34 Dose: 1 tab Senna (Senokot Tab*) 2 tab PO BEDTIME [facility] Last Admin: 04/09/18 22:02 Dose: Not Given Thiamine HCl (Vitamin B-1 Tab*) 100 mg PO DAILY [facility] Last Admin: 04/10/18 09:34 Dose: 100 mg Throat Lozenges (Chloraseptic Anastasia*) 1 anastasia PO Q4H PRN PRN Reason: SORE THROAT Last Admin: 04/02/18 21:04 Dose: 1 anastasia Oxygen Devices in Use Now: None Result Diagrams: 04/10/18 06:39 04/10/18 06:39 Additional Lab and Data: Microbiology and Other Data: Microbiology 03/30/18 21:07 Urine Culture - Final Urine 03/31/18 04:52 Aerobic Blood Culture - Preliminary Blood Venous No Growth Day 1 Anaerobic Blood Culture - Preliminary No Growth Day 1 Diagnostic Imaging: CHEST AP PORTABLE Exam Date: 03/31/18438 IMPRESSION: HYPERINFLATION. NO ACTIVE CARDIOPULMONARY DISEASE. EKG Data: EKG 03/18/18 - Sinus rhythm, rate 92. Nonspecific ST changes, and prolonged QT at 508. No acute signs of ischemia. Assess/Plan/Problems-Billing Assessment: 72 yo male who who presented to the ER on 03/31 after he was evaluated the day prior in the ER for a fall found to have a dislocated shoulder , he then returned to the ER with c/o left hip pain found to have a left hip fracture - Patient Problems (1) Acute urinary retention Current Visit: Yes Status: Acute Code(s): R33.8 - OTHER RETENTION OF URINE SNOMED Code(s): 120025917 Comment: - Acute on chronic - post obstructive - - Zavala placed in OR 04/04 by urology along with urethral dilitation - Urology consult, input appreciated - zavala draining well, no further mucous plugs. Plan to keep zavala in and f/u with urology in 3 weeks, then may be able to go back to straight cath. D/t high urine output now keeping for monitoring of output; Sodium level improving. - CT pelvis - showing bladder wall thickening suspicous for cystitis, left side suggested possible mass? He will need f/u with urology. kidneys u/s normal - no hydronephrosis. - PSA normal (2) UTI (urinary tract infection) Current Visit: Yes Status: Acute Comment: Current Visit: Yes Status: Acute Comment: - afebrile > 48 hours - urine cx negative - no other obvious source. CRP trending down - Blood cx NTD, urine cx NTD -Continue Levaquin DAY 04/02 ---Will d/c qdaily orders and give last dose today (3) Pain Current Visit: Yes Status: Acute Code(s): R52 - PAIN, UNSPECIFIED SNOMED Code(s): 16252368 Comment: -Well-controlled -Continue scheduled and PRN pain meds -Will continue watchful waiting (4) Lower extremity edema Current Visit: Yes Status: Acute Code(s): R60.0 - LOCALIZED EDEMA SNOMED Code(s): 079469659 Comment: -Likely due to fracture and urinary retentionpt mentions it has improved from previous -Dopplers (-) for DVT -Slightly improved (5) Hyponatremia Current Visit: Yes Status: Acute Code(s): E87.1 - HYPO-OSMOLALITY AND HYPONATREMIA SNOMED Code(s): 60158761 Comment: -Stable -Continue watchful waiting -Will give Low dose lasix x1 given likely hypervolemic given above (6) Dislocation of right shoulder joint Current Visit: Yes Status: Acute Code(s): S43.004A - UNSPECIFIED DISLOCATION OF RIGHT SHOULDER JOINT, INIT ENCNTR SNOMED Code(s): 415833520 Comment: - Anterior dislocation - S/P reduction in the ED on 03/[address] Menezes - Arm to remain in sling at all times, non-weight bearing - Follow-up with orthopedics outpatient (7) Greater trochanter fracture Current Visit: Yes Status: Acute Code(s): S72.113A - DISP FX OF GREATER TROCHANTER OF UNSP FEMUR, INIT SNOMED Code(s): 030029753 Comment: - Left - Non-operative, plan for weight bearing as tolerated. No actice abduction at hip. - Continue PT/OT - Management per Orthopedics with outpatient follow-up in 7 days after discharge (8) Alcoholism Current Visit: Yes Status: Chronic Code(s): F10.20 - ALCOHOL DEPENDENCE, UNCOMPLICATED SNOMED Code(s): 6019458 Comment: - No signs of active withdrawal at this time - Advised life-style modifications (9) COPD (chronic obstructive pulmonary disease) Current Visit: No Status: Chronic Code(s): J44.9 - CHRONIC OBSTRUCTIVE PULMONARY DISEASE, UNSPECIFIED SNOMED Code(s): 80591000 Comment: - No sign of acute exacerbation at this time - Continue singulair and albuterol PRN (10) HLD (hyperlipidemia) Current Visit: No Status: Chronic Code(s): E78.5 - HYPERLIPIDEMIA, UNSPECIFIED SNOMED Code(s): 30566276 Comment: - Continue statin (11) HTN (hypertension) Current Visit: Yes Status: Chronic Code(s): I10 - ESSENTIAL (PRIMARY) HYPERTENSION SNOMED Code(s): 03838510 Comment: - Mostly normotensive, SBP 100-150's - Continue metoprolol (12) Prostate cancer Current Visit: Yes Status: Chronic Code(s): C61 - MALIGNANT NEOPLASM OF PROSTATE SNOMED Code(s): 831362454 Comment: - With acute on chronic urinary retention - Follow-up with Urology outpatient - PSA normal (13) DVT prophylaxis Current Visit: Yes Status: Acute Code(s): QYJ9124 - SNOMED Code(s): 991429969 Comment: - SQ heparin Status and Disposition: For possible D/C to [facility] tomorrow
[2018-04-10] MEDS: Atorvastatin* 10 MG TAB PO SCH (16:37)
[2018-04-10] MEDS: Albuterol HFA INHALER* 8 gm MDI INH PRN (16:39)
[2018-04-10] MEDS: Levofloxacin TAB* 500 MG PO SCH (16:41)
[2018-04-10] MEDS: Senna TAB PO SCH (22:10)
[2018-04-11] MEDS: Acetaminophen TAB* 325 MG PO SCH (04:19)
[2018-04-11 06:48] LABS: ABS Basophils 0.1 10^3/ul (0-0.2); ABS Eosinophils 0.1 10^3/ul (0-0.6); ABS Lymphocytes 1.7 10^3/ul (1.0-4.8); ABS Monocytes 1.3 10^3/ul (0-0.8); ABS Neutrophils 4.1 10^3/ul (1.5-7.7); ABS Nucleated RBC 0 10^3/ul; Eosinophil % 1.3 % (0-6); Hematocrit 33 % (42-52); Hemoglobin 11.3 g/dl (14.0-18.0); Lymphocyte % 23.1 % (25-47); Mean Corpuscular HGB Conc 34 g/dl (31-36); Mean Corpuscular Hemoglobin 30 pg (27-31); Mean Corpuscular Volume 88 fL (80-94); Mean Platelet Volume 6.4 um3 (7.4-10.4); Nucleated Red Blood Cells % 0.1; Platelet Count 486 10^3/ul (150-450); Red Blood Count 3.76 10^6/ul (4.00-5.40); Red Cell Distribution Width 13 % (10.5-15); White Blood Count 7.2 10^3/ul (3.5-10.8)
[2018-04-11 07:07] LABS: EGFR Non-African American 143.4 (>60)
[2018-04-11] MEDS: Montelukast Sodium TAB* 10 MG PO SCH (08:59)
[2018-04-11] MEDS: Metoprolol Succinate XL TAB* 50 MG PO SCH (08:59)
[2018-04-11] MEDS: Folic Acid TAB* 1 MG PO SCH (09:00)
[2018-04-11] MEDS: Multivitamins/Minerals TAB PO SCH (09:00)
[2018-04-11] MEDS: Thiamine TAB* 100 MG TAB PO SCH (09:00)
[2018-04-11] MEDS: Docusate CAP* 100 MG PO SCH (09:42)
--- NOTE | 2018-04-11 10:11 | PN ---
Progress Note - Progress Note Date of Service: 04/11/18 SOAP: Subjective: []Patient seen sitting on bedside. He is feeling well with no right shoulder pain, he is keeping his arm in a sling though is able to use his right hand without difficulty. No left hip pain. Does confirm mild left groin discomfort. Objective: []General: Well appearing, NAD, sitting at the edge of the bed RUE: Sling in place, no tenderness to palpation and no deformity at shoulder joint. Able to flex and extend at elbow and wrist. Radial pulse 2+ LLE: No tenderness to palpation of left hip or thigh. Thigh is soft. DF/PF intact. Sensation intact distally. BL calves supple and nontender without palpable cords, + edema Assessment: []72 yo M with R shoulder dislocation reduced under anesthesia in the ED. He also has a recent left hip fracture involving the greater trochanter. Plan: R shoulder NWB, sling WBAT with a cane or rolling walker. No active abduction at hip Cont PT/OT Orthopedically stable for DC, DC when medically ready Follow up with ortho - Dr. Menezes - 7 days after discharge, sooner PRN- call [phone] for appt
--- NOTE | 2018-04-11 14:34 | DS ---
CC: Dr. Baxter; Dr. Menezes; Dr. Won Mcneal; Dr. Bony Sarmiento; Dr. Kelsea Gomez; Dr. Luigi Avina; Dr. Mark Turner DISCHARGE SUMMARY: DATE OF ADMISSION: 03/31/18 DATE OF DISCHARGE: 04/11/18 DISCHARGE DIAGNOSES: 1. Acute urinary retention, status post Cole catheter placement; CT of the pelvis shows bladder wall thickening suspicious for cystitis, left side suggests a possible mass ?, to follow up with Urology in 3 weeks. 2. Cystitis/urinary tract infection, resolved, completed 7 days of Levaquin treatment. 3. Lower extremity edema, improved, likely due to IV fluid therapy and urinary retention as described. 4. Hypervolemic hyponatremia, improved, secondary to above. 5. Dislocation of right shoulder. 6. Greater trochanter fracture. 7. History of chronic obstructive pulmonary disease. 8. History of hyperlipidemia, hypertension, and prostate carcinoma. DISCHARGE MEDICATIONS: As follows: 1. Tylenol 975 p.o. q.12 and 650 p.o. q.4 hours p.r.n. for breakthrough not to exceed 3.5 g per day of total Tylenol dose. 2. Albuterol inhalation MDI 1 puff inhalation q.4 hours p.r.n. 3. Colace 100 mg p.o. b.i.d. 4. Folic acid 1 mg tab p.o. daily. 5. Hydrocodone/acetaminophen ([place]) 5/325 one tab p.o. q.4 hours p.r.n. 6. Metoprolol succinate 50 mg p.o. daily. 7. Montelukast 10 mg p.o. daily. 8. Simvastatin 20 mg p.o. q.p.m. 9. Multivitamins 1 tab p.o. daily. 10. Senna 1 tab p.o. q.h.s. 11. Thiamine 100 mg p.o. daily. HISTORY OF PRESENT ILLNESS/HOSPITAL COURSE: The patient is a 72-year-old gentleman with history of hypertension, COPD, and prostate cancer who was admitted on 03/31/18 secondary to a fall. He mentioned that the night before, he was trying to get out of bed and had a mechanical fall where he mentions he got caught by the bed and fell and landed on his right shoulder and he knew immediately that it was dislocated. He mentions that this was at least the fourth time he had dislocated his shoulder and he waited about an hour hoping that it will go back in position; however, it did not do so. He then subsequently called [facility] and he was then brought to the emergency room where he was indeed found to have right shoulder dislocation and left greater trochanteric fracture via CT of his pelvis. In addition, he was also found to have hyponatremia, initially thought to be due to alcoholism and IV fluids. He was also diagnosed with UTI and initially he was placed on Rocephin and then subsequently transitioned to Levaquin for 7 more days. He was seen by Dr. Menezes of Orthopedic who has initially tried to reduce his dislocation twice , but initially was unsuccessful and he then had to undergo the procedure with anesthesia in order to reduce his right shoulder dislocation. He also had a recent left hip fracture involving his greater trochanter and there were no surgical correction at this time that has been planned. The plan is for him to tolerate weightbearing as tolerated and no active abduction of the hip and to be continued to be evaluated by PT/OT. He was also advised to keep his sling for his right shoulder joint and to see Dr. Menezes 7 after his discharge from [facility]. In addition, multiple subsequent discussions transpired since he mentions that he would like to straight cath himself back and remove the Cole catheter. It was explained to the patient that this decision will be made in conjunction with his urologist, Dr. Baxter, 3 weeks after he gets discharged and evaluated by Dr. Baxter. He understands above and mentions compliance. Physical Therapy has also seen patient who recommended acute rehab and hence is discharged to [facility]. He was advised to follow up and/or call his PCP/facility [employer]/MD within 3 days post discharge, to weight bear as tolerated with a cane or rolling walker with no active abduction of the hip, to keep his right shoulder sling as prescribed by Orthopedic Surgery and to follow the instructions and recommendations of his physical therapist in rehab after he is reevaluated. He is to follow up with Dr. Menezes in 7 days after discharge or sooner as needed and to call [phone] to make an appointment. It was also stressed that he follow up with his urologist , Dr. Baxter, in 3 weeks and to call [phone] to confirm/make an appointment. It is stressed with the patient that Dr. Baxter will be the one evaluating him to see if his Cole catheter can be removed in 3 weeks safely and hence we will defer. He was advised to call [facility] if his PCP cannot see him any sooner and that both him and his PCP agree that he does indeed need to be seen sooner. He was advised to call my office regarding any questions, concerns, and/or further recommendations regarding his discharge plan and/or prescriptions and to take his medications as prescribed. REVIEW OF SYSTEMS: On review of systems, the patient denied any recent headaches, dizziness, fevers, chills, nausea, vomiting, chest pain, shortness of breath, increased cough and/or sputum production, abdominal pain, diarrhea, constipation, pain and/or increased frequency in urination, myalgias, arthralgias, throat pain, or new skin lesions. The rest of the 14-point review of systems are otherwise unremarkable. PHYSICAL EXAMINATION: Shows most recent vital signs of records with blood pressure of 111/59, 76 beats per minute heart rate, 17 per minute respiratory rate, saturating at 95% room air with 97.5 degrees Fahrenheit temperature. General Appearance: The patient is awake, alert, and oriented x3, not in acute distress. HEENT: Normocephalic, atraumatic. PERRLA. Extraocular muscles intact. Negative for icterus. Moist oral mucosa. Negative throat erythema. Neck is soft, supple with no cervical lymphadenopathy, no JVD. Heart: S1, S2, within normal limits, regular rate and rhythm. No murmurs, rubs, and gallops. Chest is clear to auscultation bilaterally. Good air entry. No wheezes, rales , or rhonchi. Abdomen is soft, nondistended, nontender. Normoactive bowel sounds 4 times Q. Extremities: No cyanosis, clubbing with 1+ bilateral lower extremity edema, which has improved. Psychiatric: No psychosis, depression nor active suicidal nor homicidal ideations. Skin is warm to touch. TIME SPENT: The total time spent evaluating the patient, reviewing pertinent data, and appropriate documentation is greater than 30 minutes. [id number]/[facility] #: [id number] [facility]
[2018-04-11 16:05] VITALS: BP 113/64
== END 2018-04-11 16:40 | DRG 562 ==
LOC: ED 14:36 → MED 03-31 07:31 → OBSVTOIN 03-31 11:35
PROVIDERS: ADMIT Internal Medicine; ATTEND Student in an Organized Health Care Education/Training Program
PROC: 0RSJXZZ Reposition Right Shoulder Joint, External Approach (ICD-10-PCS; 2018-03-30)
PROC: 0T9B80Z Drainage of Bladder with Drainage Device, Via Natural or Artificial Opening Endoscopic (ICD-10-PCS; 2018-04-04)
PROC: 0T7D8ZZ Dilation of Urethra, Via Natural or Artificial Opening Endoscopic (ICD-10-PCS; principal; 2018-04-04 13:15)
DX: S43.014A Anterior dislocation of right humerus, initial encounter (principal); S72.112A Displaced fracture of greater trochanter of left femur, initial encounter for closed fracture; A41.9 Sepsis, unspecified organism; E87.1 Hypo-osmolality and hyponatremia; I10 Essential (primary) hypertension; J44.9 Chronic obstructive pulmonary disease, unspecified; E78.5 Hyperlipidemia, unspecified; R00.0 Tachycardia, unspecified; N31.2 Flaccid neuropathic bladder, not elsewhere classified; N35.9 Urethral stricture, unspecified; W06.XXXA Fall from bed, initial encounter; F10.20 Alcohol dependence, uncomplicated; N30.90 Cystitis, unspecified without hematuria; R33.8 Other retention of urine; Z66 Do not resuscitate; E83.42 Hypomagnesemia; E87.6 Hypokalemia; Z79.51 Long term (current) use of inhaled steroids; Z92.3 Personal history of irradiation; Z85.46 Personal history of malignant neoplasm of prostate; Z87.891 Personal history of nicotine dependence; Z80.42 Family history of malignant neoplasm of prostate; Z82.49 Family history of ischemic heart disease and other diseases of the circulatory system; Z88.0 Allergy status to penicillin; Y92.009 Unspecified place in unspecified non-institutional (private) residence as the place of occurrence of the external cause; V29.9XXA Motorcycle rider (driver) (passenger) injured in unspecified traffic accident, initial encounter; Y93.55 Activity, bike riding; Y92.9 Unspecified place or not applicable; Z90.79 Acquired absence of other genital organ(s)
CPT/HCPCS: 36415; 70450; 71045; 72192; 76775; 80048; 80053; 81003; 81015; 82533; 83605; 83735; 83930; 83935; 84100; 84153; 84300; 84443; 85025; 85060; 85610; 85730; 86140; 87040; 87086; 93970; 94640; 99284; A9270-GY; G0103; G8978-GP-CL; G8979-GP-CJ; G8987-GO-CL; G8988-GO-CI; G8989-GO-CI; J0696; J1580; J1644; J1940; J1956; J2250; J2310; J3010; J3475

== ENCOUNTER 2019-08-14 16:40 | Emergency (ER) | payer MEDICARE, MEDICAID ==
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
[2019-08-14 17:13] VITALS: BP 103/69
--- OUTSIDE RECORDS SUMMARY | 2019-08-14 17:21 | XMS REPORT | Continuity of Care Document ---
:1945 External Reference #:[id number] Author Name Marilee Worrell MD (transmitted by agent of provider Dede Hurd) Address [address] [facility], [place] [address] Care Team Providers Name Role Phone Abilio Copeland MD - Internal Care Team Information [facility] Marilee Worrell MD - Internal Medicine Care Team Information [employer]geer [phone] Problems Active Problems Provider Date Recurrent dislocation of shoulder Christen Millicent Menezes Onset: 04/18/2018 region Serum vitamin B12 borderline low Mark Turner M.D.,FACP Onset: 2017 Mixed hyperlipidemia Mark Turner M.D.,FACP Onset: 06/20/2015 History of malignant neoplasm of Mark Turner M.D.,FACP Onset: 2014 prostate Chronic retention of urine Mark Turner M.D.,FACP Onset: 06/20/2015 Note: self cath 4x/day Pulmonary emphysema Mark Turner M.D.,FACP Onset: 06/20/2015 Essential hypertension Mark Turner M.D.,FACP Onset: 09/06/2015 Alcohol abuse Mark Turner M.D.,FACP Onset: 09/24/2015 Note: per therapist Major depressive disorder Mark Turner M.D.,FACP Onset: 08/13/2017 Alcoholism Joaquin Raygoza, N.P. Onset: 03/31/2018 Note: in remission Hypo-osmolality and or hyponatremia Matilde Hodgson NP Onset: 04/01 Chronic obstructive lung disease Matilde Hodgson NP Onset: 2017 Edema Garrett Heredia MD Onset: 04/09/2018 Social History Type Date Description Comments Sex Unknown Tobacco Use Start: Unknown End: Former Cigarette Smoker Unknown 1 1/2 Packs Daily Cigarette Use Quit - Age 68 Tobacco Use Start: Unknown End: Former Cigar Smoker 2 Unknown Daily ETOH Use 06/10/2018 Negative For Denies alcohol use ETOH Use 12/09/2018 Currently consumes 3 24 oz cans of alcohol beer daily Recreational Drug Use Denies Drug Use Tobacco Use Start: Unknown Light tobacco smoker (10 or fewer cigarettes/day) Tobacco Use Start: Unknown Light tobacco smoker very few and says (10 or fewer not cigarettes/day) inhalingDocument: 01/23/19 - .Nurse Note Smoking Status Reviewed: 08/01/19 Light tobacco smoker very few and says (10 or fewer not cigarettes/day) inhalingDocument: 01/23/19 - .Nurse Note Exercise Type/Frequency Exercises regularly bicycle daily : at least 5 mile daily if weather allows Allergies, Adverse Reactions, Alerts Active Allergies Reaction Severity Comments Date Penicillin rash itching 04/18/2018 Inactive Allergies NKDA 07/17/2013 Medications Active Medications SIG Qnty Indications Ordering Date Provider Malathion apply to scalp 59ml B85.0 Marilee Worrell MD 04/27/2019 0.5% Lotion and leave for 10 minutes before washing off; repeat in 2 days Sertraline HCL 1 by mouth every 90tabs Marilee Worrell MD 03/16/2019 50mg day Tablets Hydrocortisone Use on the 28.350gm S10.86xA Marilee Worrell MD 01/23/2019 1% Cream affected area twice a day Albuterol Sulfate HFA 2 puffs by mouth 1units Marilee Worrell MD 01/23/2019 every 4 hours as 108(90Base) mcg/Act needed Aerosol Hydroxyzine HCL 01/23/19 reports 30tabs Raquel Lopez, 12/01/2018 25mg not taking take GREEN MARKETING SPECIALIST Tablets one tablet by mouth in he evenings as needed for anxiety Blood Pressure Monitor use daily to 1units I10 Raquel Lopez, 11/16/2018 Auto Inflate monitor bp daily GREEN MARKETING SPECIALIST Misc Simvastatin take 1 tablet by 90tabs E78.2 Marilee Worrell MD 20mg Tablets mouth every evening Montelukast Sodium take 1 tablet by 90tabs Raquel Lopez, 10mg mouth every day GREEN MARKETING SPECIALIST Tablets Senna Laxative 1 tab by mouth 90tabs Raquel Lopez, 8.6mg every night at GREEN MARKETING SPECIALIST Tablets bedtime Metoprolol Succinate take 1 tablet by 90tabs I10 Marilee Worrell MD ER mouth every day 50mg Tablets ER 24HR History Medications Azithromycin take 2 tablets 6tabs J04.0 Marilee Worrell MD 07/19/2019 - 250mg today; then one 08/01/2019 Tablets tablet daily Medications Administered in Office Medication SIG Qnty Indications Ordering Provider Date Technetium TC 99M Sanchez Steele M.D., 08/21/2013 Tetrofosmin, Per Unit Dose FACC, FASNC Up To 40 Millicuries Injection Td(Adult),Unspecified Unknown 04/03/2011 Injection Immunizations CPT Code Status Date Vaccine Lot # [id number] Given 03/06/2011 Measles Mumps And Rubella MMR Vital Signs Date Vital Result Comment 08/01/2019 9:41am Height 63 inches 5'3" Weight 128.00 lb Heart Rate 70 /min BP Systolic Sitting 113 mmHg BP Diastolic Sitting 69 mmHg Body Temperature 97.7 F O2 % BldC Oximetry 97 % BMI (Body Mass Index) 22.7 kg/m2 07/19/2019 10:30am Height 63 inches 5'3" Weight 127.00 lb Heart Rate 94 /min BP Systolic Sitting 111 mmHg BP Diastolic Sitting 72 mmHg Body Temperature 99.7 F O2 % BldC Oximetry 95 % BMI (Body Mass Index) 22.5 kg/m2 Results Test Acquired Date Facility Test Result H/L Range Note CBC Auto 03/13/2019 [facility] White Blood 7.1 10^3/uL Normal 3.5-10.[address] [place] [address] [phone] Red Blood Count 4.47 10^6/uL Normal 4.18-5.48 Hemoglobin 13.5 g/dL Low 14.0-18.0 Hematocrit 39 % Low 42-52 Mean Corpuscular Volume 88 fL Normal 80-94 Mean Corpuscular Hemoglobin 30 pg Normal 27-31 Mean Corpuscular HGB Conc 34 g/dL Normal 31-36 Red Cell Distribution Width 14 % Normal 10-15 Platelet Count 417 10^3/uL Normal 150-450 Mean Platelet Volume 6.7 fL Low 7.4-10.4 Abs Neutrophils 4.4 10^3/uL Normal 1.5-7.7 Abs Lymphocytes 1.1 10^3/uL Normal 1.0-4.8 Abs Monocytes 1.5 10^3/uL High 0-0.8 Abs Eosinophils 0.1 10^3/uL Normal 0-0.6 Abs Basophils 0.0 10^3/uL Normal 0-0.2 Abs Nucleated RBC 0.0 10^3/uL Granulocyte % 61.4 % Lymphocyte % 15.8 % Monocyte % 21.3 % Eosinophil % 0.8 % Basophil % 0.7 % Nucleated Red Blood Cells % 0.0 Comp Metabolic Panel 03/13/2019 [facility] Sodium 130 mmol/L Low 135-145 [address] [place] [address] [phone] Chloride 94 mmol/L Low 101-111 Co2 Carbon Dioxide 29 mmol/L Normal 22-32 Glucose 97 mg/dL Normal 70-100 Blood Urea Nitrogen 5 mg/dL Low 6-24 Creatinine 0.61 mg/dL Low 0.67-1.17 BUN/Creatinine Ratio 8.2 Normal 8-20 Calcium 9.7 mg/dL Normal 8.6-10.3 Total Protein 7.4 g/dL Normal 6.4-8.9 Albumin 4.1 g/dL Normal 3.2-5.2 Globulin 3.3 g/dL Normal 2-4 Albumin/Globulin Ratio 1.2 Normal 1-3 Total Bilirubin 0.30 mg/dL Normal 0.2-1.0 Alkaline Phosphatase 163 U/L High 34-104 Alt 9 U/L Normal 7-52 Ast 18 U/L Normal 13-39 Egfr Non- 129.6 >60 Egfr 156.8 >60 1 Potassium 5.3 mmol/L High 3.5-5.0 Anion Gap 7 mmol/L Normal 2-11 Laboratory test 03/13/2019 [facility] Lipase 10 U/L Low 11.0- 82.[address] [place] [address] [phone] Inr/Protime 03/13/2019 [facility] Inr 0.97 Normal 0.82-1.[address] [place] [address] [phone] 1 Because ethnic data is not always readily available, this report includes an eGFR for both -Americans and non- Americans. The National Kidney Disease Education Program (NKDEP) does not endorse the use of the MDRD equation for patients that are not between the ages of 18 and 70, are , have extremes of body size, muscle mass, or nutritional status, or are non- or non-. According to the National Kidney Foundation, irrespective of diagnosis, the stage of the disease is based on the level of kidney function: Stage Description GFR(mL/min/1.73 m(2)) 1 Kidney damage with normal or decreased GFR 90 2 Kidney damage with mild decrease in GFR 60-89 3 Moderate decrease in GFR 30-59 4 Severe decrease in GFR 15-29 5 Kidney failure <15 (or dialysis) 2 Standard intensity warfarin therapeutic range: 2.0-3.0 High intensity warfarin therapeutic range: 2.5-3.5 Procedures Date Code Description Status 06/05/2011 73294746 Colonoscopy Completed Medical Devices Description No Information Available Encounters Type Date Location Provider Dx Diagnosis Office Visit 07/19/2019 [facility] Marilee Worrell MD J04.0 Acute laryngitis 11:00a Medicine - [address] Office Visit 04/27/2019 [facility] Marilee Worrell MD B85.0 Pediculosis due to 10:00a Medicine - [facility] Pediculus humanus capitis I10 Essential (primary) hypertension F33.1 Major depressive disorder, recurrent, moderate F17.210 Nicotine dependence, cigarettes, uncomplicated Office Visit 03/16/2019 11:00a [facility] Marilee Worrell, F33.1 Major depressive Medicine - [facility] MD disorder, recurrent, moderate I10 Essential (primary) hypertension Assessments Date Code Description Provider 08/01/2019 I10 Essential (primary) hypertension Marilee Worrell MD 08/01/2019 F17.210 Nicotine dependence, cigarettes, uncomplicated Marilee Worrell MD 08/01/2019 F33.1 Major depressive disorder, recurrent, moderate Marilee Worrell MD 08/01/2019 J44.9 Chronic obstructive pulmonary disease, unspecified Marilee Worrell MD 07/19/2019 J04.0 Acute laryngitis Marilee Worrell MD 04/27/2019 B85.0 Pediculosis due to Pediculus humanus capitis Marilee Worrell MD 04/27/2019 I10 Essential (primary) hypertension Marilee Worrell MD 04/27/2019 F33.1 Major depressive disorder, recurrent, moderate Marilee Worrell MD 04/27/2019 F17.210 Nicotine dependence, cigarettes, uncomplicated Marilee Worrell MD 03/16/2019 F33.1 Major depressive disorder, recurrent, moderate Marilee Worrell MD 03/16/2019 I10 Essential (primary) hypertension Marilee Worrell MD Plan of Treatment Future Appointment(s):11/02/2019 8:40 am - Marilee Worrell MD at [facility] Internal Medicine - [facility]08/01/2019 - Marilee Worrell MDI10 Essential (primary) hypertensionNew Orders:Echocardiogram, Ordered: 08/01/19Comments:Your blood pressure is fine. Continue the same medicationFollow up:F/U 3 egdyzmD88.210 Nicotine dependence, cigarettes, duzubpvvtdknnT03.1 Major depressive disorder, recurrent, vntnflxjE76.9 Chronic obstructive pulmonary disease, unspecifiedNew Orders:PFT W/Bronchodilator,Spirometry,Volumes, Ordered: 08/01/19 Functional Status Description No Information Available Mental Status Description No Information Available Referrals Description No Information Available
--- OUTSIDE RECORDS SUMMARY | 2019-08-14 17:21 | XMS REPORT | Continuity of Care Document ---
:1945 External Reference #:[id number] Author Name Marilee Worrell MD (transmitted by agent of provider Maribel Damico) Address [address] [facility] [facility], [place] [address] Care Team Providers Name Role Phone Abilio Copeland MD - Internal Care Team Information Transportation Maintenance Operator Medicine Marilee Worrell MD - Internal Medicine Care Team Information Transportation Maintenance Operator [phone] Problems Active Problems Provider Date Recurrent dislocation of shoulder Christen Menezes M.D. Onset: 04/18/2018 region Serum vitamin B12 borderline [...] 01/23/19 - .Nurse Note Smoking Status Reviewed: 07/19/19 Light tobacco smoker very few and says (10 or fewer not cigarettes/day) inhalingDocument: 01/23/19 - .Nurse Note Exercise Type/Frequency Exercises regularly bicycle daily : at least 5 mile daily if weather allows Allergies, Adverse Reactions, Alerts Active Allergies Reaction Severity Comments Date Penicillin rash itching 04/18/2018 Inactive Allergies NKDA 07/17/2013 Medications Active Medications SIG Qnty Indications Ordering Date Provider Azithromycin take 2 tablets 6tabs J04.0 Marilee Worrell MD 07/19/2019 250mg today; then one Tablets tablet daily Malathion apply to scalp 59ml B85.0 Marilee Worrell MD 04/27/2019 0.5% Lotion and leave for 10 minutes before washing off; repeat in 2 days Sertraline HCL 1 by mouth every 90tabs Marilee Worrell MD 03/16/2019 50mg day Tablets Hydrocortisone Use on the 28.350gm S10.86xA Marilee Worrell MD 01/23/2019 1% Cream affected area twice a day Albuterol Sulfate HFA 2 puffs by mouth joanne Worrell MD 01/23/2019 every 4 hours as 108(90Base) mcg/Act needed Aerosol Hydroxyzine HCL 01/23/19 reports 30tabs Raquel Lopez, 12/01/2018 25mg not taking take ROUTE CLERK Tablets one tablet by mouth in he evenings as needed for anxiety Blood Pressure Monitor use daily to 1unvioleta I10 Oneidaa John, 11/16/2018 Auto Inflate monitor bp daily ROUTE CLERK Misc Simvastatin take 1 tablet by 90tabs E78.2 Marilee Worrell MD 20mg Tablets mouth every evening Montelukast Sodium take 1 tablet by 90tabs Leonidasofia John, 10mg mouth every day ROUTE CLERK Tablets Senna Laxative 1 tab by mouth 90tabs Leonidasofiivette Lopez, 8.6mg every night at ROUTE CLERK Tablets bedtime Metoprolol Succinate take 1 tablet by 90tabs I10 Marilee Worrell MD ER mouth every day 50mg Tablets ER 24HR History Medications Sertraline HCL 1 by mouth every 30tabs Marilee Worrell MD 01/27/2019 - 25mg day 03/16/2019 Tablets Fluoxetine HCL take one tablet 30tabs F33.1 Marilee Worrell MD 01/23/2019 - 10mg daily 01/27/2019 Tablets Medications Administered in Office Medication SIG Qnty Indications Ordering Provider Date Technetium TC 99M Sanchez Steele M.D., 08/21/2013 Tetrofosmin, Per Unit Dose FACC, FASNC Up To 40 Millicuries Injection Td(Adult),Unspecified Unknown 04/03/2011 Injection Immunizations CPT Code Status Date Vaccine Lot # [id number] Given 03/06/2011 Measles Mumps And Rubella MMR Vital Signs Date Vital Result Comment 07/19/2019 10:30am Height 63 inches 5'3" Weight 127.00 lb Heart Rate 94 /min BP Systolic Sitting 111 mmHg BP Diastolic Sitting 72 mmHg Body Temperature 99.7 F O2 % BldC Oximetry 95 % BMI (Body Mass Index) 22.5 kg/m2 04/27/2019 9:43am Height 63 inches 5'3" Weight 131.00 lb Heart Rate 80 /min BP Systolic Sitting 140 mmHg BP Diastolic Sitting 82 mmHg Body Temperature 98.2 F O2 % BldC Oximetry 96 % BMI (Body Mass Index) 23.2 kg/m2 Results Test Date Facility Test Result H/L Range Note CBC Auto 03/13/2019 [facility] White Blood 7.1 10^3/uL Normal 3.5-10.[address] [place] [address] [phone] Red Blood Count 4.47 10^6/uL Normal 4.18-5.48 [...] Cells % 0.0 Comp Metabolic Panel 03/13/2019 [facility] Sodium 130 mmol/L Low 135-145 [address] [place] [address] [phone] Chloride 94 mmol/L Low 101-111 Co2 Carbon [...] 7 mmol/L Normal 2-11 Laboratory test 03/13/2019 [facility] Lipase 10 U/L Low 11.0- 82.[address] [place] [address] [phone] Inr/Protime 03/13/2019 [facility] Inr 0.97 Normal 0.82-1.[address] [place] [address] [phone] 1 Because ethnic data is not always [...] 2.5-3.5 Procedures Date Code Description Status 06/05/2011 18471895 Colonoscopy Completed Medical Devices Description No Information Available Encounters Type Date Location Provider Dx Diagnosis Office Visit 04/27/2019 [facility] Worrell MD B85.0 Pediculosis due to 10:00a Medicine - [place] Pediculus humanus capitis I10 Essential (primary) hypertension F33.1 Major depressive disorder, recurrent, moderate F17.210 Nicotine dependence, cigarettes, uncomplicated Office Visit 03/16/2019 11:00a [facility] Worrell F33.1 Major depressive Medicine - [place] JENKINS disorder, recurrent, moderate I10 Essential (primary) hypertension Office Visit 01/23/2019 2:00p [facility] Worrell, F33.1 Major depressive Medicine - [place] JENKINS disorder, recurrent, moderate R21 Rash and other nonspecific skin eruption J44.1 Chronic obstructive pulmonary disease w (acute) exacerbation Assessments Date Code Description Provider 07/19/2019 J04.0 Acute laryngitis Marilee Worrell MD 04/27/2019 B85.0 Pediculosis due to Pediculus humanus capitis Marilee Worrell MD 04/27/2019 I10 Essential (primary) hypertension Marilee Worrell MD 04/27/2019 F33.1 Major depressive disorder, recurrent, moderate Marilee Worrell MD 04/27/2019 F17.210 Nicotine dependence, cigarettes, uncomplicated Marilee Worrell MD 03/16/2019 F33.1 Major depressive disorder, recurrent, moderate Marilee Worrell MD 03/16/2019 I10 Essential (primary) hypertension Marilee Worrell MD 01/23/2019 F33.1 Major depressive disorder, recurrent, moderate Marilee Worrell MD 01/23/2019 R21 Rash and other nonspecific skin eruption Marilee Worrell MD 01/23/2019 J44.1 Chronic obstructive pulmonary disease with (acute) Marilee Worrell MD exacerbat Plan of Treatment Future Appointment(s):07/28/2019 9:40 am - Marilee Worrell MD at [facility] Internal Medicine - [facility]07/19/2019 - Marilee Worrell MDJ04.0 Acute laryngitisNew Medication :Azithromycin 250 mg - take 2 tablets today; then one tablet daily Functional Status Description No Information Available Mental Status Description No Information Available Referrals Description No Information Available
== END 2019-08-14 17:22 | disposition home or self-care (01) ==
LOC: ED 16:40
DX: S60.512A Abrasion of left hand, initial encounter (principal); V19.9XXA Pedal cyclist (driver) (passenger) injured in unspecified traffic accident, initial encounter; Y93.55 Activity, bike riding; Y92.9 Unspecified place or not applicable; I10 Essential (primary) hypertension; Z87.891 Personal history of nicotine dependence; Z88.0 Allergy status to penicillin
CPT/HCPCS: 99281

== ENCOUNTER 2019-11-22 15:17 | Inpatient (IN) | payer MEDICARE, MEDICAID ==
--- OUTSIDE RECORDS SUMMARY | 2019-11-22 16:00 | XMS REPORT | Continuity of Care Document ---
:1945 External Reference #:[id number] Author Name Marilee Worrell MD (transmitted by agent of provider Shahrzad Nava) Address [address] [facility], [place] [address] Care Team Providers Name Role Phone Abilio Copeland MD - Internal Care Team Information Insecticide Maker [phone] Medicine Marilee Worrell MD - Internal Medicine Care Team Information Insecticide Maker [phone] Problems Active Problems Provider Date Recurrent dislocation [...] 01/23/19 - .Nurse Note Smoking Status Reviewed: 11/02/19 Light tobacco smoker very few and says (10 or fewer not cigarettes/day) inhalingDocument: 01/23/19 - .Nurse Note Exercise Type/Frequency Exercises regularly bicycle daily : at least 5 mile daily if weather allows Allergies, Adverse Reactions, Alerts Active Allergies Reaction Severity Comments Date Penicillin rash itching 04/18/2018 Inactive Allergies NKDA 07/17/2013 Medications Active Medications SIG Qnty Indications Ordering Date Provider Sertraline HCL 1 by mouth every 90tabs Marilee Worrell MD 03/16/2019 50mg day Tablets Hydrocortisone Use on the 28.350gm S10.86xA Marilee Worrell MD 01/23/2019 1% Cream affected area twice a day Albuterol Sulfate HFA 2 puffs by mouth 1units Marilee Worrell MD 01/23/2019 every 4 hours as 108(90Base) mcg/Act needed Aerosol Hydroxyzine HCL 01/23/19 reports 30tabs Raquel Lopez, 12/01/2018 25mg not taking take ANIMAL THERAPIST Tablets one tablet by mouth in he evenings as needed for anxiety Blood Pressure Monitor use daily to 1units I10 Raquel Lopez, 11/16/2018 Auto Inflate monitor bp daily ANIMAL THERAPIST Misc Simvastatin Take 1 Tablet By 90tabs E78.2 Marilee Worrell MD 20mg Tablets Mouth Every Day In The Evening Montelukast Sodium take 1 tablet by 90tabs Marilee Worrell MD 10mg mouth every day Tablets Senna Laxative 1 tab by mouth 90tabs Zsofia John, 8.6mg every night at ANIMAL THERAPIST Tablets bedtime Metoprolol Succinate take 1 tablet by 90tabs I10 Marilee Worrell MD ER mouth every day 50mg Tablets ER 24HR History Medications Azithromycin take 2 tablets 6tabs J04.0 Marilee Worrell MD 07/19/2019 - 250mg today; then one 08/01/2019 Tablets tablet daily Medications Administered in Office Medication SIG Qnty Indications Ordering Provider Date Technetium TC 99M Sanchez Christian Steele M.D., 08/21/2013 Tetrofosmin, Per Unit Dose FACC, FASNC Up To 40 Millicuries Injection Td(Adult),Unspecified Unknown 04/03/2011 Injection Immunizations CPT Code Status Date Vaccine Lot # [id number] Given 03/06/2011 Measles Mumps And Rubella MMR Vital Signs Date Vital Result Comment 11/02/2019 8:42am Height 63 inches 5'3" Weight 126.25 lb Heart Rate 68 /min BP Systolic Sitting 116 mmHg BP Diastolic Sitting 71 mmHg Body Temperature 97.6 F O2 % BldC Oximetry 98 % BMI (Body Mass Index) 22.4 kg/m2 08/01/2019 9:41am Height 63 inches 5'3" Weight 128.00 lb Heart Rate 70 /min BP Systolic Sitting 113 mmHg BP Diastolic Sitting 69 mmHg Body Temperature 97.7 F O2 % BldC Oximetry 97 % BMI (Body Mass Index) 22.7 kg/m2 Results Description No Information Available Procedures Date Code Description Status 09/26/2019 53600 ECHO Transthorasic Realtime 2D W Doppler & Color Flow Completed Hosp 06/05/2011 [id number] Colonoscopy Completed Medical Devices Description No Information Available Encounters Type Date Location Provider Dx Diagnosis Office Visit 08/01/2019 [facility] Marilee Worrell MD I10 Essential ( primary) 9:40a Medicine - [facility] hypertension F17.210 Nicotine dependence, cigarettes, uncomplicated F33.1 Major depressive disorder, recurrent, moderate J44.9 Chronic obstructive pulmonary disease, unspecified Office Visit 07/19/2019 11:00a [facility] Marilee Worrell, J04.0 Acute laryngitis Medicine - Suite MD R Assessments Date Code Description Provider 11/02/2019 I10 Essential (primary) hypertension Marilee Worrell MD 11/02/2019 R06.02 Shortness of breath Marilee Worrell MD 11/02/2019 E78.5 Hyperlipidemia, unspecified Marilee Worrell MD 11/02/2019 C61 Malignant neoplasm of prostate Marilee Worrell MD 09/26/2019 I10 Essential (primary) hypertension Marlen Middleton M.D. 08/01/2019 I10 Essential (primary) hypertension Marilee Worrell MD 08/01/2019 F17.210 Nicotine dependence, cigarettes, Marilee Worrell MD uncomplicated 08/01/2019 F33.1 Major depressive disorder, recurrent, Marilee Worrell MD moderate 08/01/2019 J44.9 Chronic obstructive pulmonary disease, Marilee Worrell MD unspecified 07/19/2019 J04.0 Acute laryngitis Marilee Worrell MD Plan of Treatment Future Appointment(s):03/05/2020 8:40 am - Marilee Worrell MD at [facility] Internal Medicine - [facility]11/02/2019 - Marilee Worrell MDI10 Essential (primary) hypertensionComments:Your blood pressure is fine. Continue the same medicationFollow up:F/u 4 svuzpgE94.02 Shortness of prhlioV25.5 Hyperlipidemia, imrwloguqxeJ06 Malignant neoplasm of prostate Functional Status Description No Information Available Mental Status Description No Information Available Referrals Description No Information Available
[2019-11-22] MEDS ORDERED: NS 0.9% 1000 ML** 1,000 ML IV ONE ×2 (17:07→18:46)
--- NOTE | 2019-11-22 17:08 | ED ---
Influenza-Like Illness - HPI Summary HPI Summary: Patient complains of fatigue, decreased by mouth intake, productive cough, intermittent nausea and diarrhea over the past 4 days. Sent by PCP to ED for further evaluation. Denies fever, sore throat, CP, SOB, abdominal pain, change in urine, change in BM. Medical history is HTN, COPD, HLD, EtOH, prostate cancer in remission. - History of Current Complaint Chief Complaint: EDFluSymptoms Time Seen by Provider: 11/22/19 17:03 Hx Obtained From: Patient Onset/Duration: Gradual Onset, Lasting Days Severity: Moderate Associated Signs & Symptoms: Cough, Vomiting, Diarrhea - Allergy/Home Medications Allergies/Adverse Reactions: Allergies Allergy/AdvReac Type Severity Reaction Status Date / Time Penicillins Allergy Rash And Verified 11/22/19 15:33 Itching Home Medications: Home Medications Metoprolol Succinate XL TAB* [Toprol XL TAB*] 50 mg PO DAILY 03/18/18 [History Confirmed 11/22/19] Montelukast Sodium TAB* [Singulair 10 MG TAB*] 10 mg PO DAILY 03/18/18 [History Confirmed 11/22/19] Simvastatin TAB(NF) [Zocor 20 MG (NF)] 20 mg PO QPM 03/18/18 [History Confirmed 11/22/19] Multivitamins/Minerals TAB* [Theragran/minerals TAB*] 1 tab PO DAILY tab [Rx Confirmed 11/22/19] PMH/Surg Hx/FS Hx/Imm Hx Endocrine/Hematology History: Denies: Hx Anticoagulant Therapy, Hx Diabetes, Hx Thyroid Disease Cardiovascular History: Reports: Hx Hypertension Denies: Hx Pacemaker/ICD Respiratory History: Denies: Hx Asthma, Hx Chronic Obstructive Pulmonary Disease (COPD) History: Denies: Hx Renal Disease Sensory History: Reports: Hx Contacts or Glasses - Reading Denies: Hx Hearing Aid Opthamlomology History: Reports: Hx Contacts or Glasses - Reading EENT History: Denies: Hx Deafness Neurological History: Denies: Hx Dementia, Hx Seizures Psychiatric History: Denies: Hx Substance Abuse - Cancer History Cancer Type, Location and Year: prostate ca Infectious Disease History: No Infectious Disease History: Denies: Hx Hepatitis, Hx Human Immunodeficiency Virus (HIV), Traveled Outside the [place] in Last 30 Days - Family History Known Family History: Negative: Diabetes - Social History Alcohol Use: Daily Alcohol Amount: 3 24oz beers Hx Substance Use: No Substance Use Type: Reports: None Hx Tobacco Use: Yes Smoking Status (MU): Former Smoker Type: Cigars Amount Used/How Often: quit 2 weeks ago Review of Systems Positive: Fatigue Eyes: Negative ENT: Negative Cardiovascular: Negative Positive: Cough Positive: Vomiting, Diarrhea Genitourinary: Negative Musculoskeletal: Negative Skin: Negative Neurological/Mental Status: Negative Psychological: Normal All Other Systems Reviewed And Are Negative: Yes Physical Exam Triage Information Reviewed: Yes Vital Signs On Initial Exam: Initial Vitals Temp Pulse Resp BP Pulse Ox 99.4 F 98 18 110/68 97 11/22/19 15:30 11/22/19 15:30 11/22/19 15:30 11/22/19 15:30 11/22/19 15:30 Vital Signs Reviewed: Yes Appearance: Positive: Well-Appearing Skin: Positive: Warm Head/Face: Positive: Normal Head/Face Inspection Eyes: Positive: Normal Neck: Positive: Supple Respiratory/Lung Sounds: Positive: Clear to Auscultation Cardiovascular: Positive: Normal Abdomen Description: Positive: Nontender Musculoskeletal: Positive: Normal Neurological: Positive: Normal Psychiatric: Positive: Normal AVPU Assessment: Alert - [place] Coma Scale Best Eye Response: 4 - Spontaneous Best Motor Response: 6 - Obeys Commands Best Verbal Response: 5 - Oriented Coma Scale Total: 15 Procedures - Sedation Patient Received Moderate/Deep Sedation with Procedure: No Diagnostics - Vital Signs Vital Signs Temp Pulse Resp BP Pulse Ox 11/22/19 17:00 24 11/22/19 16:59 15 11/22/19 15:30 99.4 F 98 18 110/68 97 - Laboratory Result Diagrams: 11/23/19 04:00 11/25/19 05:38 Lab Statement: Any lab studies that have been ordered have been reviewed, and results considered in the medical decision making process. Flu Symptom Course/Dx - Course Course Of Treatment: Patient complains of fatigue, decreased by mouth intake, productive cough, intermittent nausea and diarrhea over the past 4 days. Sent by PCP to ED for further evaluation. Denies fever, sore throat, CP, SOB, abdominal pain, change in urine, change in BM. Medical history is HTN, COPD, HLD, EtOH, prostate cancer in remission. Vital signs within normal limits. Sodium 117. CRP 64. Initial troponin 0.04. Positive for flu a. EKG sinus rhythm, heart rate of 82, normal P axis. Chest x-ray negative. Admitted to hospitalist. - Diagnoses Provider Diagnoses: Hyponatremia, Influenza A, Elevated troponin Discharge ED - Sign-Out/Discharge Documenting (check all that apply): Patient Departure - Discharge Plan Condition: Stable Disposition: ADMITTED TO [facility] - Billing Disposition and Condition Condition: STABLE Disposition: Admitted to [facility] - Attestation Statements Provider Attestation: I was available for consult. This patient was seen by the DENZEL. The patient was not presented to, seen by, or examined by me. Zana Diaz MD
[2019-11-22 17:36] LABS: ABS Lymphocytes 0.3 10^3/ul (1.0-4.8); ABS Monocytes 1.1 10^3/ul (0-0.8); ABS Neutrophils 8.1 10^3/ul (1.5-7.7); Hematocrit 37 % (42-52); Hemoglobin 13.6 g/dL (14.0-18.0); Lymphocyte % 2.8 %; Mean Corpuscular HGB Conc 36 g/dL (31-36); Mean Corpuscular Hemoglobin 30 pg (27-31); Mean Corpuscular Volume 83 fL (80-94); Mean Platelet Volume 7.6 fL (7.4-10.4); Platelet Count 293 10^3/uL (150-450); Red Blood Count 4.49 10^6 /uL (4.18-5.48); Red Cell Distribution Width 15 % (10-15); White Blood Count 9.4 10^3/uL (3.5-10.8)
[2019-11-22 17:41] LABS: ALT 12 U/L (7-52); AST 30 U/L (13-39); Albumin 4.5 g/dL (3.2-5.2); Albumin/Globulin Ratio 1.2 (1-3); Alkaline Phosphatase 96 U/L (34-104); BUN/Creatinine Ratio 26.3 (8-20); Blood Urea Nitrogen 20 mg/dL (6-24); C Reactive Protein 64.52 mg/L (<8.01); CO2 Carbon Dioxide 26 mmol/L (22-32); Calcium 9.4 mg/dL (8.6-10.3); Chloride 80 mmol/L (101-111); EGFR African American 121.3 (>60); EGFR Non-African American 100.3 (>60); Globulin 3.7 g/dL (2-4); Glucose 90 mg/dL (70-100); Potassium 4.2 mmol/L (3.5-5.0); Total Protein 8.2 g/dL (6.4-8.9)
[2019-11-22 17:43] LABS: Anion Gap 11 mmol/L (2-11); Sodium 117 mmol/L (135-145)
[2019-11-22 17:52] LABS: Influenza A Molecular POSITIVE (Negative)
[2019-11-22 18:20] LABS: Alcohol < 10 mg/dL (<10)
[2019-11-22 18:22] LABS: Troponin I 0.04 ng/mL (<0.03)
[2019-11-22] MEDS ORDERED: Ondansetron INJ* 2 MG/ML VIAL IV PRN (19:31)
[2019-11-22] MEDS ORDERED: Albuterol/Ipratropium NEB.SOL* Albuterol 2.5 MG/Ipratropium 0.5 MG 3 ML INH PRN (19:36)
[2019-11-22] MEDS ORDERED: LORazepam TAB(*) 1 MG PO SCH (20:00)
[2019-11-22] MEDS: NS 0.9% 1000 ML** 1,000 ML IV SCH (20:48)
[2019-11-22 21:10] LABS: Activated Partial Thrombo Time 30.6 seconds (26.0-38.0); INR 1.08 (0.82-1.09)
[2019-11-22 21:15] LABS: Anion Gap 10 mmol/L (2-11); BUN/Creatinine Ratio 25.8 (8-20); Blood Urea Nitrogen 16 mg/dL (6-24); CO2 Carbon Dioxide 23 mmol/L (22-32); Calcium 7.8 mg/dL (8.6-10.3); Chloride 88 mmol/L (101-111); EGFR African American 153.4 (>60); EGFR Non-African American 126.8 (>60); Glucose 83 mg/dL (70-100); Potassium 3.6 mmol/L (3.5-5.0); Sodium 121 mmol/L (135-145)
[2019-11-22 21:19] LABS: Troponin I 0.04 ng/mL (<0.03)
[2019-11-22 21:50] LABS: TSH (Thyroid Stimulating Horm) 1.68 mcIU/mL (0.34-5.60)
[2019-11-22] MEDS: Oseltamivir CAP* 75 MG CAP PO SCH (22:15)
[2019-11-22] MEDS: Heparin VIAL(*) 5000 UNITS/ML VIAL (FIVE THOUSAND) SUBCUT SCH (22:15)
--- NOTE | 2019-11-22 22:26 | HP ---
CC: Dr. Worrell; Dr. Pedraza * HISTORY AND PHYSICAL: DATE OF ADMISSION: 11/22/19 PRIMARY CARE PROVIDER: Dr. Worrell. ATTENDING PHYSICIAN WHILE IN THE HOSPITAL: Dr. Chirsty Sanchez * (report dictated by Josué Raygoza NP). PHOTO TECHNICIAN: Dr. Pedraza. CHIEF COMPLAINT: 1. Weakness. 2. Nausea. 3. Vomiting. 4. URI symptoms. 5. Chills. HISTORY OF PRESENT ILLNESS: Mr. Ventura is a 74-year-old male patient who carries a history of hypertension; hyperlipidemia; COPD; he has a history of hip fracture in the past; prostate cancer; urinary retention, for which he straight caths 3 to 4 times a day; and a history of alcoholism, who comes in today stating over the last couple of weeks, he has been feeling under the weather. He has been feeling cough, stuffed up, feeling weak, having chills. The last week, he has been having nausea, vomiting, diarrhea. He does state that he drinks 40 ounce beer, 2 to 3 at a time about 3 to 4 times a week. He states that is down from drinking every day, which he had done in the past. He states that he noted today that he just felt so weak, he could not get off the floor, so he called 911. He states that he has not really been taking good p.o. intake, because he has not been feeling well. He denies feeling short of breath at this point. He denies having any abdominal pain. He denies having any chest pain. He was concerned because of the weakness, he came into the ER, he was found to be hyponatremic. In addition to this, found to have the flu. Because of these findings, we were asked to evaluate for admission. PAST MEDICAL HISTORY: Significant for: 1. Hypertension. 2. Hyperlipidemia. 3. COPD. 4. Prostate cancer. 5. Hip fracture. 6. Shoulder dislocation. 7. Urinary retention. 8. Alcoholism. PAST SURGICAL HISTORY: He has had a prostate resection and he has had a hernia repair. HOME MEDICATIONS: Include: 1. Multivitamin 1 tablet daily. 2. Toprol-XL 50 mg daily. 3. Simvastatin 20 mg daily. 4. Singulair 10 mg daily. ALLERGIES TO MEDICATIONS: Include PENICILLIN. FAMILY HISTORY: His mother and father both had COPD. Father had prostate cancer. SOCIAL HISTORY: He does drink. He does smoke. He has been smoking since he was 21. He states that he drinks 3 to 4 times a week. Surrogate decision maker is his daughter. REVIEW OF SYSTEMS: There is chills, but no documented fever, no significant weight change, no double vision, no ear discharge. There is rhinorrhea. There was sore throat. There is cough. No chest pain, no orthopnea, no nocturnal dyspnea, no shortness of breath. There was no nausea, no vomiting, no abdominal pain. There was diarrhea. No dysuria, no frequency, no seizure, no loss of consciousness, no pruritus, no skin ulcerations. Review of 14 systems completed, all others are negative. PHYSICAL EXAMINATION GENERAL: At this time, Mr. Ventura is a 74-year-old male patient. He is sitting in the ED stretcher. He does not appear to be in any acute distress. VITAL SIGNS: Blood pressure 127/72, pulse 92, respirations were 20, O2 saturation 97%, temperature 98.8. HEENT: Head: Atraumatic, normocephalic. Eyes: EOMs are intact. Sclerae anicteric and not pale. Throat: Oral mucosa appears to be dry. No oropharyngeal erythema. NECK: Supple. LUNGS: Clear to auscultation. They are diminished in the bases. No wheezes, rales or rhonchi. HEART: Heart sounds S1, S2. He had a regular rate and rhythm. No murmurs, rubs or gallops. ABDOMEN: Soft, flat, nontender. Bowel sounds are present. EXTREMITIES: Pulses were 2+ throughout. He had no peripheral edema. NEUROLOGIC: He is awake. He is alert. He is oriented x3. Tongue midline. [employer] are equal. No gross focal deficits. SKIN: Intact. DIAGNOSTIC STUDIES/LAB DATA: WBC 9.4, RBC 4.49, hemoglobin of 13.6, hematocrit 37, platelet count 293. Sodium 117, potassium 4.2, chloride of 80, bicarb 26, BUN 20, creatinine 0.76, glucose 90, lactate 1.2, calcium 9.4. Total bili 0.5, AST 30, ALT 12, alk phos 96. Troponin 0.04. CRP is 64. Albumin of 4.5. Serum alcohol less than 10. Serology positive for the flu. He did have a chest x-ray obtained today. Impression: Stigmata of obstructive lung disease probably associated pulmonary arterial hypertension, no acute pulmonary or cardiac process evident. He had an EKG obtained today, which when I reviewed it, it does show a normal sinus rhythm, rate of 82. LVH is noted, no ST elevation or T wave inversions are noted at this point. We reviewed it to the previous EKG, it appears to be similar in nature. LVH looks little worse. Old medical records were reviewed. ASSESSMENT AND PLAN: Mr. Ventura is a 74-year-old male patient coming into the ED today with complaints of weakness, upper respiratory tract infection symptoms , vomiting, found to have hyponatremia, and flu positive. He will be admitted under inpatient status for: 1. Hyponatremia. At this point, I suspect this is probably related to the nausea and vomiting, and the fact that he is a drinker. At this point, I am going to check BMPs now because he did receive 2 L of fluid here in the ER. I will also check a TSH, cortisol level, and a serum osmol as well. I will check a urine osmol and urine sodium. I am hopeful that with normal saline hydration , the sodium will come up. He is chronically low, which is probably related to the alcoholism, but I will follow this closely. We will place him in the unit, because it is so low. If he does trend down, I will have a low threshold for 3 % saline. 2. Influenza A. He is doing fairly well from this standpoint, but I will start him on Tamiflu, also because of the history of chronic obstructive pulmonary disease, I have ordered p.r.n. nebulizers. 3. Chronic obstructive pulmonary disease. Does not appear to be an exacerbation. P.r.n. DuoNeb has been ordered. We will continue Singulair and pulmonary toileting. 4. Elevated troponin. This is probably demand ischemia from the flu. I will trend these if they do go up, I will certainly get a cardiology consult along with an echo. I will check his EKG in the morning. I do not see any signs of ischemia and he is asymptomatic. 5. Hypertension. We will continue this meds as prescribed. 6. History of prostate cancer. Follows this with his urologist. 7. Alcoholism. I have ordered a WAM protocol and I also ordered a social work. 8. Social issues. He does state that he is living in a bug infested home. In addition to this, he has no furniture and the place where he is living, he states is in poor shape, so I will again get social work to help with this. 9. Urinary retention. He does straight cath. I have ordered this. 10. Code status. Full code. 11. Fluids, electrolytes, and nutrition. He can have a regular diet. TIME SPENT: Time spent on the admission was 60 minutes, greater that half the time spent [id number] with the patient obtaining my history and physical, other half time spent going over the plan of care with the patient and implementing plan of care. I discussed the plan of care with my attending, Dr. Sanchez, she is in agreement. JOSUÉ RAYGOZA, FRANK [id number]/CPS #: [id number] ASHELY
[2019-11-23 04:04] LABS: Urine Appearance Cloudy; Urine Bilirubin Negative (Negative); Urine Blood 2+ (Negative); Urine Color Yellow; Urine Glucose Negative (Negative); Urine Ketones 1+ (Negative); Urine Nitrite Positive (Negative); Urine Protein Negative (Negative); Urine Urobilinogen Negative (Negative)
[2019-11-23 04:05] LABS: Urine Bacteria Absent (Absent); Urine Red Blood Cell 1+(3-5/hpf) (Absent); Urine White Blood Cell 3+(>20/hpf) (Absent)
[2019-11-23 04:16] LABS: Urine Benzodiazepine Screen None Detected (None Detect); Urine Opiates Screen None Detected (None Detect)
[2019-11-23 04:17] LABS: ABS Lymphocytes 0.4 10^3/ul (1.0-4.8); ABS Monocytes 0.9 10^3/ul (0-0.8); ABS Neutrophils 5.1 10^3/ul (1.5-7.7); Hematocrit 37 % (42-52); Hemoglobin 12.9 g/dL (14.0-18.0); Lymphocyte % 6.2 %; Mean Corpuscular HGB Conc 34 g/dL (31-36); Mean Corpuscular Hemoglobin 29 pg (27-31); Mean Corpuscular Volume 85 fL (80-94); Mean Platelet Volume 7.8 fL (7.4-10.4); Platelet Count 250 10^3/uL (150-450); Red Blood Count 4.43 10^6 /uL (4.18-5.48); Red Cell Distribution Width 15 % (10-15); White Blood Count 6.4 10^3/uL (3.5-10.8)
[2019-11-23 04:21] LABS: INR 1.08 (0.82-1.09)
[2019-11-23] MEDS: NS 0.9% 1000 ML** 1,000 ML IV SCH (05:02)
[2019-11-23 05:58] LABS: Anion Gap 10 mmol/L (2-11); Blood Urea Nitrogen 12 mg/dL (6-24); CO2 Carbon Dioxide 21 mmol/L (22-32); Calcium 8.1 mg/dL (8.6-10.3); Chloride 90 mmol/L (101-111); EGFR African American 159.4 (>60); EGFR Non-African American 131.7 (>60); Glucose 77 mg/dL (70-100); Sodium 121 mmol/L (135-145)
[2019-11-23 05:59] LABS: Troponin I 0.04 ng/mL (<0.03)
[2019-11-23] MEDS: Heparin VIAL(*) 5000 UNITS/ML VIAL (FIVE THOUSAND) SUBCUT SCH ×3 (06:06→21:14)
[2019-11-23] MEDS: Sulfamethox/Trimethoprim DS 800/160* TAB PO SCH ×2 (08:57→19:58)
[2019-11-23] MEDS: Oseltamivir CAP* 75 MG CAP PO SCH ×2 (08:57→19:59)
[2019-11-23] MEDS: Montelukast Sodium TAB* 10 MG PO SCH (08:57)
[2019-11-23] MEDS: Multivitamins/Minerals TAB PO SCH (08:57)
[2019-11-23] MEDS: Metoprolol Succinate XL TAB* 50 MG PO SCH (08:57)
[2019-11-23] MEDS: Thiamine TAB* 100 MG TAB PO SCH (08:57)
[2019-11-23] MEDS: Folic Acid TAB* 1 MG PO SCH (08:57)
--- NOTE | 2019-11-23 09:47 | PN ---
Progress Note - Progress Note Date of Service: 11/23/19 Note: Progress Note -- Critical Care 24 hour events/significant events: - Admitted to ICU yesterday for hyponatremia - Tested positive for Flue A - Vital signs all remain stable - Apparently there were issues straight cathing him and needed to place zavala. Patient says he will get his own from home. - He states that he still doesnt feel very good, has midline abdominal pain in the bladder region. He feels tired and hungry. ROS: negative except for pertinent positives mentioned above Tele: sinus Vitals: Vital Signs 11/22/19 11/22/19 11/22/19 15:30 16:59 17:00 Temperature 99.4 F Pulse Rate 98 Respiratory 18 15 24 Rate Blood Pressure 110/68 (mmHg) O2 Sat by Pulse 97 Oximetry 11/22/19 11/22/19 11/22/19 17:01 18:00 18:01 Temperature Pulse Rate 87 86 Respiratory 20 26 22 Rate Blood Pressure 136/91 135/92 (mmHg) O2 Sat by Pulse 97 97 Oximetry 11/22/19 11/22/19 11/22/19 18:30 19:00 19:01 Temperature Pulse Rate 93 92 90 Respiratory 25 29 12 Rate Blood Pressure 142/80 127/72 (mmHg) O2 Sat by Pulse 98 97 97 Oximetry 11/22/19 11/22/19 11/22/19 19:24 19:30 19:44 Temperature 98.8 F Pulse Rate Respiratory 17 15 Rate Blood Pressure 127/72 129/84 (mmHg) O2 Sat by Pulse Oximetry 11/22/19 11/22/19 11/22/19 20:00 20:23 20:29 Temperature 98.8 F 100.3 F Pulse Rate 93 93 92 Respiratory 15 29 15 Rate Blood Pressure 129/84 152/84 152/84 (mmHg) O2 Sat by Pulse 97 93 93 Oximetry 11/22/19 11/22/19 11/22/19 20:30 20:42 20:43 Temperature Pulse Rate 87 86 87 Respiratory 24 22 18 Rate Blood Pressure 134/74 133/78 139/78 (mmHg) O2 Sat by Pulse 93 93 95 Oximetry 11/22/19 11/22/19 11/22/19 20:46 21:00 21:15 Temperature Pulse Rate 89 93 93 Respiratory 19 19 19 Rate Blood Pressure 144/80 150/92 148/95 (mmHg) O2 Sat by Pulse 96 95 94 Oximetry 11/22/19 11/22/19 11/22/19 21:30 21:45 22:00 Temperature Pulse Rate 89 89 89 Respiratory 24 23 23 Rate Blood Pressure 140/85 154/95 142/117 (mmHg) O2 Sat by Pulse 93 94 92 Oximetry 11/22/19 11/22/19 11/22/19 22:15 22:31 22:47 Temperature Pulse Rate 88 97 104 Respiratory 26 24 26 Rate Blood Pressure 149/84 144/68 148/93 (mmHg) O2 Sat by Pulse 93 93 93 Oximetry 11/22/19 11/22/19 11/22/19 23:00 23:15 23:17 Temperature 100.5 F Pulse Rate 87 96 Respiratory 28 24 Rate Blood Pressure 169/90 (mmHg) O2 Sat by Pulse 94 94 Oximetry 11/23/19 11/23/19 11/23/19 00:00 01:00 02:00 Temperature Pulse Rate 86 87 89 Respiratory 23 24 23 Rate Blood Pressure 148/80 147/78 133/78 (mmHg) O2 Sat by Pulse 89 90 94 Oximetry 11/23/19 11/23/19 11/23/19 03:00 04:00 04:08 Temperature 100.0 F Pulse Rate 88 86 85 Respiratory 25 23 23 Rate Blood Pressure 143/81 144/77 (mmHg) O2 Sat by Pulse 94 95 93 Oximetry 11/23/19 11/23/19 11/23/19 05:00 06:00 07:00 Temperature Pulse Rate 83 96 86 Respiratory 26 21 24 Rate Blood Pressure 135/68 149/79 121/70 (mmHg) O2 Sat by Pulse 92 92 90 Oximetry 11/23/19 11/23/19 07:27 08:00 Temperature 100.9 F Pulse Rate 82 Respiratory 21 Rate Blood Pressure 122/67 (mmHg) O2 Sat by Pulse 91 Oximetry Intake and Output Last 24 Hours 11/21/19 11/22/19 11/23/19 11/24/19 06:59 06:59 06:59 06:59 Intake Total 3130 Output Total 640 Balance 2490 Weight 126 lb 12.253 oz Intake: IV Fluids 3130 NS 1130 Output: Zavala 640 O2: RA Infusions: NS @ 125 Medications: Acetaminophen (Tylenol Tab*) 650 mg PO Q4H PRN PRN Reason: PAIN - MILD Albuterol/Ipratropium (Duoneb (Albuterol 2.5 Mg/Ipratropium 0.5 Mg)) 1 neb INH Q4H PRN PRN Reason: SOB/WHEEZING Atorvastatin Calcium (Lipitor*) 10 mg PO QPM [facility] Folic Acid (Folvite Tab*) 1 mg PO DAILY [facility] Last Admin: 11/23/19 08:57 Dose: 1 mg Heparin Sodium (Porcine) (Heparin Vial(*)) 5,000 units SUBCUT Q8HR [facility] Last Admin: 11/23/19 06:06 Dose: 5,000 units Sodium Chloride (Ns 0.9% 1000 Ml) 1,000 mls @ 125 mls/hr IV PER RATE [facility] Last Admin: 11/23/19 05:02 Dose: 125 mls/hr Lorazepam (Ativan Tab(*)) 0 - 6 mg PO .PER [facility] PROTOCOL [facility]; Protocol Metoprolol Succinate (Toprol Xl Tab*) 50 mg PO DAILY [facility] Last Admin: 11/23/19 08:57 Dose: 50 mg Montelukast Sodium (Singulair Tab*) 10 mg PO DAILY [facility] Last Admin: 11/23/19 08:57 Dose: 10 mg Multivitamins/Minerals (Theragran/Minerals Tab*) 1 tab PO DAILY [facility] Last Admin: 11/23/19 08:57 Dose: 1 tab Ondansetron HCl (Zofran Inj*) 4 mg IV Q6H PRN PRN Reason: NAUSEA Oseltamivir Phosphate (Tamiflu Cap*) 75 mg PO BID [facility] Stop: 11/27/19 09:01 Last Admin: 11/23/19 08:57 Dose: 75 mg Thiamine HCl (Vitamin B-1 Tab*) 100 mg PO DAILY [facility] Last Admin: 11/23/19 08:57 Dose: 100 mg Trimethoprim/Sulfamethoxazole (Bactrim Ds 800/160 Tab*) 1 tab PO BID [facility] Stop: 11/29/19 21:01 Last Admin: 11/23/19 08:57 Dose: 1 tab Physical Exam: Constitutional: awake, alert, no distress, no diaphoresis, frail appearing Head: normocephalic, atraumatic Eyes: no pallor, no icterus ENT: moist mucous membranes Neck: soft, supple, no jvd, no stridor CVS: normal rate, regular, no murmur Chest/Resp: bilateral air entry, no rhales, no wheeze, some mild rhonchi in the bases, no acc muscle use Abdomen/GI: soft, nondistended, BS hypoactive, tender to palpation lower quadrants Ext/Msk: warm, pulses+, no edema Skin: intact, warm Neuro: awake, alert, orientedx3, moving all extremities, no gross focal deficit Psych: normal affect Labs: Laboratory Results - last 24 hr 11/22/19 11/22/19 11/22/19 17:16 17:16 17:16 WBC 9.4 RBC 4.49 Hgb 13.6 L Hct 37 L MCV 83 MCH 30 MCHC 36 RDW 15 Plt Count 293 MPV 7.6 Neut % (Auto) 85.8 Lymph % (Auto) 2.8 [place] % (Auto) 11.3 Eos % (Auto) 0.0 Baso % (Auto) 0.1 Absolute Neuts (auto) 8.1 H Absolute Lymphs (auto) 0.3 L Absolute Monos (auto) 1.1 H Absolute Eos (auto) 0.0 Absolute Basos (auto) 0.0 Absolute Nucleated RBC 0.0 Nucleated RBC % 0.0 INR (Anticoag Therapy) APTT Sodium 117 L* Potassium 4.2 Chloride 80 L Carbon Dioxide 26 Anion Gap 11 BUN 20 Creatinine 0.76 Est GFR ( Amer) 121.3 Est GFR (Non-Af Amer) 100.3 BUN/Creatinine Ratio 26.3 H Glucose 90 Serum Osmolality Lactic Acid 1.2 Calcium 9.4 Total Bilirubin 0.50 AST 30 ALT 12 Alkaline Phosphatase 96 Troponin I 0.04 H* C-Reactive Protein 64.52 H Total Protein 8.2 Albumin 4.5 Globulin 3.7 Albumin/Globulin Ratio 1.2 TSH Cortisol 24.25 Urine Color Urine Appearance Urine pH Ur Specific [place] Urine Protein Urine Ketones Urine Blood Urine Nitrate Urine Bilirubin Urine Urobilinogen Ur Leukocyte Esterase Urine WBC (Auto) Urine RBC (Auto) Urine Bacteria Urine Osmolality U Sodium Concentration Urine Glucose Urine Opiates Screen Ur Barbiturates Screen Ur Phencyclidine Scrn Ur Amphetamines Screen U Benzodiazepines Scrn Urine Cocaine Screen U Cannabinoids Screen Serum Alcohol Influenza A (Rapid) Influenza B (Rapid) 11/22/19 11/22/19 11/22/19 17:16 17:16 17:35 WBC RBC Hgb Hct MCV MCH MCHC RDW Plt Count MPV Neut % (Auto) Lymph % (Auto) [place] % (Auto) Eos % (Auto) Baso % (Auto) Absolute Neuts (auto) Absolute Lymphs (auto) Absolute Monos (auto) Absolute Eos (auto) Absolute Basos (auto) Absolute Nucleated RBC Nucleated RBC % INR (Anticoag Therapy) APTT Sodium Potassium Chloride Carbon Dioxide Anion Gap BUN Creatinine Est GFR ( Amer) Est GFR (Non-Af Amer) BUN/Creatinine Ratio Glucose Serum Osmolality 256 L Lactic Acid Calcium Total Bilirubin AST ALT Alkaline Phosphatase Troponin I Cancelled C-Reactive Protein Total Protein Albumin Globulin Albumin/Globulin Ratio TSH 1.68 Cortisol Urine Color Urine Appearance Urine pH Ur Specific [place] Urine Protein Urine Ketones Urine Blood Urine Nitrate Urine Bilirubin Urine Urobilinogen Ur Leukocyte Esterase Urine WBC (Auto) Urine RBC (Auto) Urine Bacteria Urine Osmolality U Sodium Concentration Urine Glucose Urine Opiates Screen Ur Barbiturates Screen Ur Phencyclidine Scrn Ur Amphetamines Screen U Benzodiazepines Scrn Urine Cocaine Screen U Cannabinoids Screen Serum Alcohol < 10 Influenza A (Rapid) Positive H Influenza B (Rapid) Not Reportable 11/22/19 11/22/19 11/23/19 20:45 20:45 03:45 WBC RBC Hgb Hct MCV MCH MCHC RDW Plt Count MPV Neut % (Auto) Lymph % (Auto) [place] % (Auto) Eos % (Auto) Baso % (Auto) Absolute Neuts (auto) Absolute Lymphs (auto) Absolute Monos (auto) Absolute Eos (auto) Absolute Basos (auto) Absolute Nucleated RBC Nucleated RBC % INR (Anticoag Therapy) 1.08 APTT 30.6 Sodium 121 L Potassium 3.6 Chloride 88 L Carbon Dioxide 23 Anion Gap 10 BUN 16 Creatinine 0.62 L Est GFR ( Amer) 153.4 Est GFR (Non-Af Amer) 126.8 BUN/Creatinine Ratio 25.8 H Glucose 83 Serum Osmolality Lactic Acid Calcium 7.8 L Total Bilirubin AST ALT Alkaline Phosphatase Troponin I 0.04 H* C-Reactive Protein Total Protein Albumin Globulin Albumin/Globulin Ratio TSH Cortisol Urine Color Yellow Urine Appearance Cloudy Urine pH 6.0 Ur Specific [place] 1.010 Urine Protein Negative Urine Ketones 1+ A Urine Blood 2+ A Urine Nitrate Positive A Urine Bilirubin Negative Urine Urobilinogen Negative Ur Leukocyte Esterase 1+ A Urine WBC (Auto) 3+(>20/hpf) A Urine RBC (Auto) 1+(3-5/hpf) A Urine Bacteria Absent Urine Osmolality U Sodium Concentration Urine Glucose Negative Urine Opiates Screen Ur Barbiturates Screen Ur Phencyclidine Scrn Ur Amphetamines Screen U Benzodiazepines Scrn Urine Cocaine Screen U Cannabinoids Screen Serum Alcohol Influenza A (Rapid) Influenza B (Rapid) 11/23/19 11/23/19 11/23/19 03:45 03:45 03:45 WBC RBC Hgb Hct MCV MCH MCHC RDW Plt Count MPV Neut % (Auto) Lymph % (Auto) [place] % (Auto) Eos % (Auto) Baso % (Auto) Absolute Neuts (auto) Absolute Lymphs (auto) Absolute Monos (auto) Absolute Eos (auto) Absolute Basos (auto) Absolute Nucleated RBC Nucleated RBC % INR (Anticoag Therapy) APTT Sodium Potassium Chloride Carbon Dioxide Anion Gap BUN Creatinine Est GFR ( Amer) Est GFR (Non-Af Amer) BUN/Creatinine Ratio Glucose Serum Osmolality Lactic Acid Calcium Total Bilirubin AST ALT Alkaline Phosphatase Troponin I C-Reactive Protein Total Protein Albumin Globulin Albumin/Globulin Ratio TSH Cortisol Urine Color Urine Appearance Urine pH Ur Specific [place] Urine Protein Urine Ketones Urine Blood Urine Nitrate Urine Bilirubin Urine Urobilinogen Ur Leukocyte Esterase Urine WBC (Auto) Urine RBC (Auto) Urine Bacteria Urine Osmolality 424 U Sodium Concentration 66 Urine Glucose Urine Opiates Screen None detected Ur Barbiturates Screen None detected Ur Phencyclidine Scrn None detected Ur Amphetamines Screen None detected U Benzodiazepines Scrn None detected Urine Cocaine Screen None detected U Cannabinoids Screen None detected Serum Alcohol Influenza A (Rapid) Influenza B (Rapid) 11/23/19 11/23/19 11/23/19 04:00 04:00 04:00 WBC 6.4 RBC 4.43 Hgb 12.9 L Hct 37 L MCV 85 MCH 29 MCHC 34 RDW 15 Plt Count 250 MPV 7.8 Neut % (Auto) 79.5 Lymph % (Auto) 6.2 [place] % (Auto) 14.1 Eos % (Auto) 0.0 Baso % (Auto) 0.2 Absolute Neuts (auto) 5.1 Absolute Lymphs (auto) 0.4 L Absolute Monos (auto) 0.9 H Absolute Eos (auto) 0.0 Absolute Basos (auto) 0.0 Absolute Nucleated RBC 0.0 Nucleated RBC % 0.0 INR (Anticoag Therapy) 1.08 APTT Sodium 121 L Potassium 4.0 Chloride 90 L Carbon Dioxide 21 L Anion Gap 10 BUN 12 Creatinine 0.60 L Est GFR ( Amer) 159.4 Est GFR (Non-Af Amer) 131.7 BUN/Creatinine Ratio 20.0 Glucose 77 Serum Osmolality Lactic Acid Calcium 8.1 L Total Bilirubin AST ALT Alkaline Phosphatase Troponin I 0.04 H* C-Reactive Protein Total Protein Albumin Globulin Albumin/Globulin Ratio TSH Cortisol Urine Color Urine Appearance Urine pH Ur Specific [place] Urine Protein Urine Ketones Urine Blood Urine Nitrate Urine Bilirubin Urine Urobilinogen Ur Leukocyte Esterase Urine WBC (Auto) Urine RBC (Auto) Urine Bacteria Urine Osmolality U Sodium Concentration Urine Glucose Urine Opiates Screen Ur Barbiturates Screen Ur Phencyclidine Scrn Ur Amphetamines Screen U Benzodiazepines Scrn Urine Cocaine Screen U Cannabinoids Screen Serum Alcohol Influenza A (Rapid) Influenza B (Rapid) Imaging: Chest xray 11/22: stigmata of obstructive lung disease. Probable associated pulmonary arterial hypertension. No acute processes Assessment: 74M with known medical history of HTN, HLD, COPD, prostate cancer, urinary retention (requiring straight cath at home), and etoh abuse, presents on 11/22/19 with complaints of weakness, nausea, vomiting, URI symptoms and chills for last couple weeks. Found to be Flu A positive as well as hyponatremia. Admitted to ICU. UA shows UTI - Hyponatremia - ETOH abuse - Urinary retention - UTI - COPD Plan: Neuro- - No active issues -Delirium prec; avoid BDZ CVS- - HTN: chronic. Continue home metoprolol XL 50mg daily -Maintain MAP>65 as long as SBP<160 Resp- - COPD: chronic. Appears that he is only on singular at home. PRN duonebs if needed -Keep sat>92% -Bronchodilators PRN, Aspiration prec, Pulmonary Toilet ID- - UA concerning for UTI. + blood, nitrates, leuks,and RBC. Considering this and tmax 100.5, as well as straight cathing at home, will treat for UTI. This is also likely the cause of his discomfort in the suprapubic region - Started bactrim BID x 7 days. Adjust if necessary once urine culture results - Goal temp<101 GI- -Nutrition: Reg diet. Encourage PO -GI prophylaxis not indicated - Etoh abuse: Chronic. WAM protocol. Multivitamins, folic acid, thiamine. Renal- - Urinary retention: chronic -strict I/O, replete to keep K>4, Mg>2 -Zavala needed to be placed last night since unable to straight cath. Patient will have a friend bring in his supplies from home. At that time, we can take out the zavala - Hyponatremia: acute on chronic likely d/t etoh abuse. Na 117 on arrival. However, his range appears to be 121-131 over the past 5 years. Will not replace Na. Heme- - No active issues - Subq heparin for DVT prophylaxis Endo-Maintain BG<200, insulin protocol as needed Musculsk- pressure ulcer prophylaxis. OOB Wounds- none Nutrition- regular diet DVT prophylaxis: Subq heparin GI prophylaxis: not indicated Zavala Catheter: continue until patient is able to get straight cath supplies from home Disposition: Patient will be transferred to the floor Patient clinical status: stable Code Status: full
[2019-11-23 14:20] LABS: Magnesium 2.2 mg/dL (1.9-2.7)
[2019-11-23] MEDS: Acetaminophen TAB* 325 MG PO PRN (18:13)
[2019-11-23] MEDS: Atorvastatin* 10 MG TAB PO SCH (18:13)
[2019-11-24] MEDS: Heparin VIAL(*) 5000 UNITS/ML VIAL (FIVE THOUSAND) SUBCUT SCH ×3 (05:20→21:01)
[2019-11-24] MEDS: Acetaminophen TAB* 325 MG PO PRN ×2 (06:54→14:30)
[2019-11-24 07:59] LABS: BUN/Creatinine Ratio 13.3 (8-20); EGFR African American 159.4 (>60); EGFR Non-African American 131.7 (>60); Potassium 3.3 mmol/L (3.5-5.0)
[2019-11-24] MEDS: Oseltamivir CAP* 75 MG CAP PO SCH ×2 (08:34→21:01)
[2019-11-24] MEDS: Metoprolol Succinate XL TAB* 50 MG PO SCH (08:36)
[2019-11-24] MEDS: Folic Acid TAB* 1 MG PO SCH (08:36)
[2019-11-24] MEDS: Montelukast Sodium TAB* 10 MG PO SCH (08:37)
[2019-11-24] MEDS: Multivitamins/Minerals TAB PO SCH (08:37)
[2019-11-24] MEDS: Sulfamethox/Trimethoprim DS 800/160* TAB PO SCH (08:38)
[2019-11-24] MEDS: Thiamine TAB* 100 MG TAB PO SCH (08:38)
[2019-11-24] MEDS: Potassium Chlor TAB* 20 MEQ TAB.ER PO SCH ×2 (08:38→21:01)
--- NOTE | 2019-11-24 08:49 | PN ---
Subjective Date of Service: 11/24/19 Interval History: Anselmo is a 74 yo male, initially admitted to ICU with concern for hyponatremia and influenza A. He reports feeling fatigued and still has a cough but feels mildly improved. Denies pain, CP, SOB. Patient states he straight catheterizes himself at home and prefers this to a zavala. Per nursing, zavala catheter is clogging and not draining well. Family History: Unchanged from Admission Social History: Unchanged from Admission Past Medical History: Unchanged from Admission Objective Active Medications: Acetaminophen (Tylenol Tab*) 650 mg PO Q4H PRN PRN Reason: PAIN - MILD Last Admin: 11/24/19 06:54 Dose: 650 mg Albuterol/Ipratropium (Duoneb (Albuterol 2.5 Mg/Ipratropium 0.5 Mg)) 1 neb INH Q4H PRN PRN Reason: SOB/WHEEZING Atorvastatin Calcium (Lipitor*) 10 mg PO QPM [facility] Last Admin: 11/23/19 18:13 Dose: 10 mg Folic Acid (Folvite Tab*) 1 mg PO DAILY [facility] Last Admin: 11/24/19 08:36 Dose: 1 mg Heparin Sodium (Porcine) (Heparin Vial(*)) 5,000 units SUBCUT Q8HR [facility] Last Admin: 11/24/19 05:20 Dose: 5,000 units Lorazepam (Ativan Tab(*)) 0 - 6 mg PO .PER [facility] PROTOCOL [facility]; Protocol Metoprolol Succinate (Toprol Xl Tab*) 50 mg PO DAILY [facility] Last Admin: 11/24/19 08:36 Dose: 50 mg Montelukast Sodium (Singulair Tab*) 10 mg PO DAILY [facility] Last Admin: 11/24/19 08:37 Dose: 10 mg Multivitamins/Minerals (Theragran/Minerals Tab*) 1 tab PO DAILY [facility] Last Admin: 11/24/19 08:37 Dose: 1 tab Ondansetron HCl (Zofran Inj*) 4 mg IV Q6H PRN PRN Reason: NAUSEA Last Admin: 11/23/19 18:19 Dose: 4 mg Oseltamivir Phosphate (Tamiflu Cap*) 75 mg PO BID [facility] Stop: 11/27/19 09:01 Last Admin: 11/24/19 08:34 Dose: 75 mg Potassium Chloride (Klor Con Er Tab*) 20 meq PO BID [facility] Last Admin: 11/24/19 08:38 Dose: 20 meq Thiamine HCl (Vitamin B-1 Tab*) 100 mg PO DAILY [facility] Last Admin: 11/24/19 08:38 Dose: 100 mg Trimethoprim/Sulfamethoxazole (Bactrim Ds 800/160 Tab*) 1 tab PO BID [facility] Stop: 11/29/19 21:01 Last Admin: 11/24/19 08:38 Dose: 1 tab Vital Signs - 8 hr 11/24/19 11/24/19 11/24/19 02:41 04:17 06:00 Temperature 98 F 97.9 F 97.7 F Pulse Rate 78 71 75 Respiratory 18 18 18 Rate Blood Pressure 128/68 107/58 111/67 (mmHg) O2 Sat by Pulse 94 93 95 Oximetry Oxygen Devices in Use Now: None Appearance: 74 yo male, sitting up in bed, slightly ill appearing, pleasant, alert Eyes: No Scleral Icterus, PERRLA Ears/Nose/Mouth/Throat: Clear Oropharnyx, Mucous Membranes Moist Neck: NL Appearance and Movements; NL JVP Respiratory: Symmetrical Chest Expansion and Respiratory Effort, - - scattered rhonchi Cardiovascular: NL Sounds; No Murmurs; No JVD, RRR, No Edema Abdominal: NL Sounds; No Tenderness; No Distention Extremities: No Clubbing, Cyanosis Skin: No Rash or Ulcers Neurological: Alert and Oriented x 3, NL Muscle Strength and Tone Nutrition: Taking PO's Result Diagrams: 11/23/19 04:00 11/24/19 06:44 Microbiology and Other Data: Microbiology 11/23/19 14:39 Stool Gross Appearance - Final Stool C. difficile DNA Amplification - Final 027 Presumptive NEGATIVE Toxigenic C.diff NEGATIVE Stool Lactoferrin - Final Rotavirus Antigen - Final Negative Rotavirus 11/22/19 17:35 Nasal Screen MRSA (PCR) - Final Nasal Mrsa Not Detected Assess/Plan/Problems-Billing Assessment: Mr. Ventura is a 74 yo male with a PMH significant for COPD, prostate ca, urinary retention/straight caths a home, HTN, HLD, and ETOH use disorder who presented to the ED on 11/22/19 with concern for weakness n/v, URI and chills and was found to have influenza A and hyponatremia. - Patient Problems (1) Hyponatremia Code(s): E87.1 - HYPO-OSMOLALITY AND HYPONATREMIA Comment: Initially 117, static at 121 Still hypocholoremic Will give additional 2 bags of NS, recheck BMP later this evening Historically has had Na 121-130s; pt does have history of ETOH use disorder (2) Influenza A Code(s): J10.1 - FLU DUE TO OTH IDENT INFLUENZA VIRUS W OTH RESP MANIFEST Comment: Continue droplet precautions On Tamiflu (3) UTI (urinary tract infection) Comment: Has significant pyuria and sediment with thick urine that has clogged 2 zavala catheters (irrigation minimally successful He has asked to straight cath as he does at home Urine culture pending - change Bactrim to IV ceftriaxone at this time (4) Urinary retention Code(s): R33.9 - RETENTION OF URINE, UNSPECIFIED Comment: Chronic, pt frequently self-catheterizes at home Declines indwelling zavala catheter Continue qshift and prn straight cath (5) Alcohol dependence Code(s): F10.20 - ALCOHOL DEPENDENCE, UNCOMPLICATED Comment: Not scoring on WAM, change to q4 assessment Bill expresses sadness around use and states he is motivated not to continue. Requests fisher crab consult Continue thiamine, folate, MVI Supportive care provided - we discussed outpatient resources (6) COPD (chronic obstructive pulmonary disease) Code(s): J44.9 - CHRONIC OBSTRUCTIVE PULMONARY DISEASE, UNSPECIFIED Comment: No sign of acute exacerbation at this time Continue singulair and albuterol PRN (7) HLD (hyperlipidemia) Code(s): E78.5 - HYPERLIPIDEMIA, UNSPECIFIED Comment: Continue statin (8) HTN (hypertension) Code(s): I10 - ESSENTIAL (PRIMARY) HYPERTENSION Comment: Mostly normotensive, SBP 100-150's Continue metoprolol (9) DVT prophylaxis Comment: SQ heparin Status and Disposition: Inpatient admission. Plan for d/c to home when medically stable. Attending: Yadira Gonsalez
[2019-11-24] MEDS: NS 0.9% 1000 ML** 1,000 ML IV SCH (16:58)
[2019-11-24] MEDS: Atorvastatin* 10 MG TAB PO SCH (17:05)
[2019-11-24] MEDS: cefTRIAXone(*) 1 GM in NS 0.9% 50 ML* 50 ML IVPB SCH (17:05)
[2019-11-24 20:46] LABS: BUN/Creatinine Ratio 12.9 (8-20); Calcium 7.9 mg/dL (8.6-10.3); EGFR African American 153.4 (>60); EGFR Non-African American 126.8 (>60); Potassium 3.3 mmol/L (3.5-5.0)
[2019-11-25] MEDS: Heparin VIAL(*) 5000 UNITS/ML VIAL (FIVE THOUSAND) SUBCUT SCH ×3 (05:19→21:03)
[2019-11-25 06:28] LABS: BUN/Creatinine Ratio 11.5 (8-20); Calcium 7.9 mg/dL (8.6-10.3); EGFR Non-African American 155.4 (>60); Potassium 3.7 mmol/L (3.5-5.0)
[2019-11-25] MEDS: NS 0.9% 1000 ML** 1,000 ML IV SCH (07:02)
[2019-11-25] MEDS: Acetaminophen TAB* 325 MG PO PRN ×2 (07:02→14:22)
--- NOTE | 2019-11-25 08:28 | PN ---
Subjective Date of Service: 11/25/19 Interval History: Mr. Ventura reports cough is better but still feels weak, fatigues easily. Denies fever/chills, CP, SOB. Tolerating PO. Unsure if he has medicines at home. Does not have a bed to sleep in, sleeps on the floor. Has no straight cath supplies at home, dislikes having zavala catheter Family History: Unchanged from Admission Social History: Unchanged from Admission Past Medical History: Unchanged from Admission Objective Active Medications: Acetaminophen (Tylenol Tab*) 650 mg PO Q4H PRN PRN Reason: PAIN - MILD Last Admin: 11/25/19 07:02 Dose: 650 mg Albuterol/Ipratropium (Duoneb (Albuterol 2.5 Mg/Ipratropium 0.5 Mg)) 1 neb INH Q4H PRN PRN Reason: SOB/WHEEZING Atorvastatin Calcium (Lipitor*) 10 mg PO QPM [facility] Last Admin: 11/24/19 17:05 Dose: 10 mg Folic Acid (Folvite Tab*) 1 mg PO DAILY [facility] Last Admin: 11/24/19 08:36 Dose: 1 mg Heparin Sodium (Porcine) (Heparin Vial(*)) 5,000 units SUBCUT Q8HR [facility] Last Admin: 11/25/19 05:19 Dose: 5,000 units Ceftriaxone Sodium 1 gm/ (Sodium Chloride) 50 mls @ 100 mls/hr IVPB Q24H [facility] Last Admin: 11/24/19 17:05 Dose: 100 mls/hr Sodium Chloride (Ns 0.9% 1000 Ml) 1,000 mls @ 100 mls/hr IV PER RATE [facility] Stop: 11/26/19 01:59 Last Admin: 11/25/19 07:02 Dose: 100 mls/hr Lorazepam (Ativan Tab(*)) 0 - 6 mg PO .PER [facility] PROTOCOL [facility]; Protocol Metoprolol Succinate (Toprol Xl Tab*) 50 mg PO DAILY [facility] Last Admin: 11/24/19 08:36 Dose: 50 mg Montelukast Sodium (Singulair Tab*) 10 mg PO DAILY [facility] Last Admin: 11/24/19 08:37 Dose: 10 mg Multivitamins/Minerals (Theragran/Minerals Tab*) 1 tab PO DAILY [facility] Last Admin: 11/24/19 08:37 Dose: 1 tab Ondansetron HCl (Zofran Inj*) 4 mg IV Q6H PRN PRN Reason: NAUSEA Last Admin: 11/23/19 18:19 Dose: 4 mg Oseltamivir Phosphate (Tamiflu Cap*) 75 mg PO BID [facility] Stop: 11/27/19 09:01 Last Admin: 11/24/19 21:01 Dose: 75 mg Potassium Chloride (Klor Con Er Tab*) 20 meq PO BID [facility] Last Admin: 11/24/19 21:01 Dose: 20 meq Thiamine HCl (Vitamin B-1 Tab*) 100 mg PO DAILY [facility] Last Admin: 11/24/19 08:38 Dose: 100 mg Vital Signs - 8 hr 11/25/19 11/25/19 11/25/19 03:40 07:15 07:40 Temperature 99.4 F 97.2 F Pulse Rate 75 79 Respiratory 18 20 16 Rate Blood Pressure 114/66 94/62 (mmHg) O2 Sat by Pulse 95 95 Oximetry Oxygen Devices in Use Now: None Appearance: 74 yo male, sitting up on edge of bed, NAD Eyes: No Scleral Icterus, PERRLA Ears/Nose/Mouth/Throat: Clear Oropharnyx, Mucous Membranes Moist Neck: NL Appearance and Movements; NL JVP Respiratory: Symmetrical Chest Expansion and Respiratory Effort, - - slightly diminished throughout Cardiovascular: NL Sounds; No Murmurs; No JVD, RRR, No Edema Abdominal: NL Sounds; No Tenderness; No Distention Skin: No Rash or Ulcers Neurological: Alert and Oriented x 3, NL Muscle Strength and Tone Nutrition: Taking PO's Result Diagrams: 11/23/19 04:00 11/25/19 05:38 Microbiology and Other Data: Microbiology 11/23/19 14:39 Stool Gross Appearance - Final Stool C. difficile DNA Amplification - Final 027 Presumptive NEGATIVE Toxigenic C.diff NEGATIVE Stool Lactoferrin - Final Rotavirus Antigen - Final Negative Rotavirus 11/22/19 17:35 Nasal Screen MRSA (PCR) - Final Nasal Mrsa Not Detected Assess/Plan/Problems-Billing Assessment: Mr. Ventura is a 74 yo male with a PMH significant for COPD, prostate ca, urinary retention/straight caths a home, HTN, HLD, and ETOH use disorder who presented to the ED on 11/22/19 with concern for weakness n/v, URI and chills and was found to have influenza A and hyponatremia. - Patient Problems (1) Hyponatremia Code(s): E87.1 - HYPO-OSMOLALITY AND HYPONATREMIA Comment: Initially 117, s/p 2L NS - now 124 Still hypocholoremic - give additional liter and recheck BMP this evening Historically has had Na 121-130s; pt does have history of ETOH use disorder (2) Influenza A Code(s): J10.1 - FLU DUE TO OTH IDENT INFLUENZA VIRUS W OTH RESP MANIFEST Comment: Continue droplet precautions On Tamiflu (3) UTI (urinary tract infection) Comment: Has significant pyuria and sediment with thick urine that has clogged 2 zavala catheters (irrigation minimally successful) He has asked to straight cath as he does at home Urine culture shows Klebsiella, awaiting sensitivities - continue ceftriaxone (4) Urinary retention Code(s): R33.9 - RETENTION OF URINE, UNSPECIFIED Comment: Chronic, pt frequently self-catheterizes at home Declines indwelling zavala catheter Continue q4h and prn straight cath (5) Alcohol dependence Code(s): F10.20 - ALCOHOL DEPENDENCE, UNCOMPLICATED Comment: Not scoring on WAM, change to q4 assessment Bill expresses sadness around use and states he is motivated not to continue. Continue thiamine, folate, MVI Social work and proofer apprentice consults also placed Supportive care provided - we discussed outpatient resources (6) COPD (chronic obstructive pulmonary disease) Code(s): J44.9 - CHRONIC OBSTRUCTIVE PULMONARY DISEASE, UNSPECIFIED Comment: No sign of acute exacerbation at this time Continue singulair and albuterol PRN (7) HLD (hyperlipidemia) Code(s): E78.5 - HYPERLIPIDEMIA, UNSPECIFIED Comment: Continue statin (8) HTN (hypertension) Code(s): I10 - ESSENTIAL (PRIMARY) HYPERTENSION Comment: Mostly normotensive, SBP 100-150's Continue metoprolol (9) DVT prophylaxis Comment: SQ heparin Status and Disposition: Inpatient admission. Plan for d/c to home when medically stable. Patient has multiple social concerns, including lack of access to medications, no bed to sleep in, safety concerns. Social work and case management following so that we can ensure safe discharge home. Attending: Mark Turner
[2019-11-25] MEDS: Oseltamivir CAP* 75 MG CAP PO SCH ×2 (08:55→20:53)
[2019-11-25] MEDS: Folic Acid TAB* 1 MG PO SCH (08:56)
[2019-11-25] MEDS: Thiamine TAB* 100 MG TAB PO SCH (08:57)
[2019-11-25] MEDS: Potassium Chlor TAB* 20 MEQ TAB.ER PO SCH ×2 (08:57→20:53)
[2019-11-25] MEDS: Montelukast Sodium TAB* 10 MG PO SCH (08:58)
[2019-11-25] MEDS: Multivitamins/Minerals TAB PO SCH (08:59)
[2019-11-25] MEDS: Metoprolol Succinate XL TAB* 50 MG PO SCH (09:03)
[2019-11-25] MEDS ORDERED: NS 0.9% 1000 ML** 1,000 ML IV SCH ×2 (12:45→23:00)
[2019-11-25] MEDS: cefTRIAXone(*) 1 GM in NS 0.9% 50 ML* 50 ML IVPB SCH (16:00)
[2019-11-25] MEDS: Atorvastatin* 10 MG TAB PO SCH (17:47)
[2019-11-25 18:33] LABS: BUN/Creatinine Ratio 8.3 (8-20); Calcium 8.3 mg/dL (8.6-10.3); EGFR African American 159.4 (>60); EGFR Non-African American 131.7 (>60); Potassium 3.9 mmol/L (3.5-5.0)
[2019-11-26] MEDS: Heparin VIAL(*) 5000 UNITS/ML VIAL (FIVE THOUSAND) SUBCUT SCH (05:22)
[2019-11-26 07:13] LABS: BUN/Creatinine Ratio 7.1 (8-20); Calcium 8.4 mg/dL (8.6-10.3); EGFR African American 172.6 (>60); EGFR Non-African American 142.6 (>60); Potassium 4.1 mmol/L (3.5-5.0)
[2019-11-26] MEDS: Folic Acid TAB* 1 MG PO SCH (07:55)
[2019-11-26] MEDS: Potassium Chlor TAB* 20 MEQ TAB.ER PO SCH ×2 (07:56→20:24)
[2019-11-26] MEDS: Oseltamivir CAP* 75 MG CAP PO SCH ×2 (07:57→20:24)
[2019-11-26] MEDS: Montelukast Sodium TAB* 10 MG PO SCH (07:58)
[2019-11-26] MEDS: Metoprolol Succinate XL TAB* 50 MG PO SCH (07:58)
[2019-11-26] MEDS: Acetaminophen TAB* 325 MG PO PRN ×2 (07:58→20:23)
[2019-11-26] MEDS: Multivitamins/Minerals TAB PO SCH (07:59)
[2019-11-26] MEDS: Thiamine TAB* 100 MG TAB PO SCH (07:59)
--- NOTE | 2019-11-26 14:33 | PN ---
Subjective Date of Service: 11/26/19 Interval History: Patient complains of moderate pain in his abdomen on the right side, which he associated with bladder distention before his catheterization. Patient denies CP , SOB, F/C, N/V, abdominal pain, dysuria, diarrhea, or other pain. Family History: Unchanged from Admission Social History: Unchanged from Admission Past Medical History: Unchanged from Admission Objective Active Medications: Acetaminophen (Tylenol Tab*) 650 mg PO Q4H PRN PRN Reason: PAIN - MILD Last Admin: 11/26/19 07:58 Dose: 650 mg Albuterol/Ipratropium (Duoneb (Albuterol 2.5 Mg/Ipratropium 0.5 Mg)) 1 neb INH Q4H PRN PRN Reason: SOB/WHEEZING Atorvastatin Calcium (Lipitor*) 10 mg PO QPM [facility] Last Admin: 11/25/19 17:47 Dose: 10 mg Enoxaparin Sodium (Lovenox(*)) 40 mg SUBCUT Q24H [facility] Folic Acid (Folvite Tab*) 1 mg PO DAILY [facility] Last Admin: 11/26/19 07:55 Dose: 1 mg Ceftriaxone Sodium 1 gm/ (Sodium Chloride) 50 mls @ 100 mls/hr IVPB Q24H [facility] Last Admin: 11/25/19 16:00 Dose: 100 mls/hr Metoprolol Succinate (Toprol Xl Tab*) 50 mg PO DAILY [facility] Last Admin: 11/26/19 07:58 Dose: 50 mg Montelukast Sodium (Singulair Tab*) 10 mg PO DAILY [facility] Last Admin: 11/26/19 07:58 Dose: 10 mg Multivitamins/Minerals (Theragran/Minerals Tab*) 1 tab PO DAILY [facility] Last Admin: 11/26/19 07:59 Dose: 1 tab Ondansetron HCl (Zofran Inj*) 4 mg IV Q6H PRN PRN Reason: NAUSEA Last Admin: 11/23/19 18:19 Dose: 4 mg Oseltamivir Phosphate (Tamiflu Cap*) 75 mg PO BID [facility] Stop: 11/27/19 09:01 Last Admin: 11/26/19 07:57 Dose: 75 mg Potassium Chloride (Klor Con Er Tab*) 20 meq PO BID [facility] Last Admin: 11/26/19 07:56 Dose: 20 meq Thiamine HCl (Vitamin B-1 Tab*) 100 mg PO DAILY [facility] Last Admin: 11/26/19 07:59 Dose: 100 mg Vital Signs - 8 hr 11/26/19 11/26/19 11/26/19 07:15 07:22 11:15 Temperature 97.6 F 97.6 F Pulse Rate 73 63 Respiratory 16 16 16 Rate Blood Pressure 107/58 109/53 (mmHg) O2 Sat by Pulse 94 96 Oximetry Oxygen Devices in Use Now: None Appearance: Patient is a 74yo male who appears stated age and is sitting in the bed in NAD. Eyes: No Scleral Icterus, PERRLA Ears/Nose/Mouth/Throat: NL Teeth, Lips, Gums, Clear Oropharnyx, Mucous Membranes Moist Neck: NL Appearance and Movements; NL JVP, Trachea Midline Respiratory: Symmetrical Chest Expansion and Respiratory Effort, Clear to Auscultation Cardiovascular: NL Sounds; No Murmurs; No JVD, RRR, No Edema Abdominal: No Hepatosplenomegaly, - - Hyperactive BS, Tender to palpation in RLQ. Lymphatic: No Cervical Adenopathy Extremities: No Edema, No Clubbing, Cyanosis Skin: No Rash or Ulcers, No Nodules or Sclerosis Neurological: Alert and Oriented x 3, NL Sensation, NL Muscle Strength and Tone , - - CN II-XII intact. Result Diagrams: 11/23/19 04:00 11/26/19 06:47 Microbiology and Other Data: Microbiology 11/23/19 14:39 Stool Gross Appearance - Final Stool C. difficile DNA Amplification - Final 027 Presumptive NEGATIVE Toxigenic C.diff NEGATIVE Stool Lactoferrin - Final Rotavirus Antigen - Final Negative Rotavirus 11/22/19 17:35 Nasal Screen MRSA (PCR) - Final Nasal Mrsa Not Detected Assess/Plan/Problems-Billing Assessment: Mr. Ventura is a 74 yo male with a PMH significant for COPD, prostate ca, urinary retention/straight caths a home, HTN, HLD, and ETOH use disorder who presented to the ED on 11/22/19 with concern for weakness n/v, URI and chills and was found to have influenza A and hyponatremia. Both improving with time and treatment. - Patient Problems (1) Hyponatremia Current Visit: No Status: Acute Code(s): E87.1 - HYPO-OSMOLALITY AND HYPONATREMIA SNOMED Code(s): 64955610 Comment: - Initially 117, s/p 2L NS - now 127 - Stop fluid and monitor - If no worsening, may be able to D/C at this level as patient is not majorly symptomatic. - Likely due to solute depletion from Beer-Potomania - Possible also contribution from SIADH related to respiratory disease. (2) Influenza A Current Visit: Yes Status: Acute Code(s): J10.1 - FLU DUE TO OTH IDENT INFLUENZA VIRUS W OTH RESP MANIFEST SNOMED Code(s): 294058873 Comment: - Improved - Continue droplet precautions - On Tamiflu dose 05/06 (3) Alcohol dependence Current Visit: Yes Status: Acute Code(s): F10.20 - ALCOHOL DEPENDENCE, UNCOMPLICATED SNOMED Code(s): 92082823 Comment: - No signs of withdrawal, 2 weeks from last drink per patient report - Continue thiamine, folate, MVI - Social work and medical transcriber consults also placed - Supportive care provided, Interested in AA - Motivated for complete abstinence. (4) Acute urinary retention Current Visit: No Status: Acute Code(s): R33.8 - OTHER RETENTION OF URINE SNOMED Code(s): 684300106 Comment: - Chronic, straight caths at home - Needed zavala this admission - Resume straight caths per patient - Complication of prostate cancer/treatment. (5) UTI (urinary tract infection) Current Visit: No Status: Acute Comment: - Has significant pyuria and sediment with thick urine that has clogged 2 zavala catheters (irrigation minimally successful) - He has asked to straight cath as he does at home - Urine culture shows Klebsiella Continue ceftriaxone (6) COPD (chronic obstructive pulmonary disease) Current Visit: No Status: Chronic Code(s): J44.9 - CHRONIC OBSTRUCTIVE PULMONARY DISEASE, UNSPECIFIED SNOMED Code(s): 15622943 Comment: - No sign of acute exacerbation at this time - Continue singulair and albuterol PRN (7) HTN (hypertension) Current Visit: No Status: Chronic Code(s): I10 - ESSENTIAL (PRIMARY) HYPERTENSION SNOMED Code(s): 48686955 Comment: - Mostly normotensive, SBP 100-150's - Continue metoprolol (8) Prostate cancer Current Visit: No Status: Chronic Code(s): C61 - MALIGNANT NEOPLASM OF PROSTATE SNOMED Code(s): 282501970 Comment: - With acute on chronic urinary retention - Follow-up with Urology outpatient - Continue straight cath (9) HLD (hyperlipidemia) Current Visit: No Status: Chronic Code(s): E78.5 - HYPERLIPIDEMIA, UNSPECIFIED SNOMED Code(s): 37760060 Comment: Continue statin (10) DVT prophylaxis Current Visit: No Status: Acute Code(s): MFG3979 - SNOMED Code(s): 181247047 Comment: - Lovenox Status and Disposition: Inpatient admission. Plan for d/c to home when medically stable. Patient has multiple social concerns, including lack of access to medications, no bed to sleep in, safety concerns. Social work and case management following so that we can ensure safe discharge home. Hopeful D/C tomorrow.
[2019-11-26] MEDS: cefTRIAXone(*) 1 GM in NS 0.9% 50 ML* 50 ML IVPB SCH (15:15)
[2019-11-26] MEDS: Enoxaparin(*) 40 MG/0.4 ML SYR SUBCUT SCH (15:15)
[2019-11-26] MEDS: Atorvastatin* 10 MG TAB PO SCH (16:52)
[2019-11-27 06:49] LABS: BUN/Creatinine Ratio 7.1 (8-20); Calcium 9.4 mg/dL (8.6-10.3); EGFR African American 172.6 (>60); EGFR Non-African American 142.6 (>60)
[2019-11-27 06:52] LABS: Potassium 5.5 mmol/L (3.5-5.0)
[2019-11-27] MEDS: Metoprolol Succinate XL TAB* 50 MG PO SCH (08:30)
[2019-11-27] MEDS: Multivitamins/Minerals TAB PO SCH (08:30)
[2019-11-27] MEDS: Folic Acid TAB* 1 MG PO SCH (08:30)
[2019-11-27] MEDS: Oseltamivir CAP* 75 MG CAP PO SCH (08:31)
[2019-11-27] MEDS: Montelukast Sodium TAB* 10 MG PO SCH (08:31)
[2019-11-27] MEDS: Thiamine TAB* 100 MG TAB PO SCH (08:31)
[2019-11-27 11:16] VITALS: BP 119/62
[2019-11-27 11:42] LABS: BUN/Creatinine Ratio 9.4 (8-20); Calcium 8.8 mg/dL (8.6-10.3); EGFR African American 183.9 (>60); Potassium 4.1 mmol/L (3.5-5.0)
[2019-11-27] MEDS ORDERED: Sodium Chloride TAB* 1 GM PO SCH (12:00)
[2019-11-27] MEDS: Enoxaparin(*) 40 MG/0.4 ML SYR SUBCUT SCH (13:15)
--- NOTE | 2019-11-27 22:35 | DS ---
CC: Dr. Marilee Worrell * DISCHARGE SUMMARY: DATE OF ADMISSION: 11/22/19 DATE OF DISCHARGE: 11/27/19 PRIMARY CARE PROVIDER: Dr. Marilee Worrell. MY ATTENDING WHILE IN THE HOSPITAL: Dr. Mark Turner.* (STEVIE RAYO) PRIMARY DISCHARGE DIAGNOSES: 1. Influenza A. 2. Hyponatremia. SECONDARY DISCHARGE DIAGNOSES: 1. History of prostate cancer. 2. Chronic urinary retention. 3. Chronic obstructive pulmonary disease. 4. Hypertension. 5. Hyperlipidemia. 6. History of alcoholism. STUDIES DONE WHILE IN THE HOSPITAL: Chest x-ray from 11/22/19 read as stigmata of obstructive lung disease, probably associated pulmonary arterial hypertension. No acute pulmonary or cardiac process evident. Abdomen x-ray from 11/26/19 read as normal KUB. MEDICATIONS AT DISCHARGE: 1. Montelukast 10 mg p.o. daily. 2. Simvastatin 20 mg p.o. daily. 3. Metoprolol succinate 50 mg p.o. daily. 4. Multivitamin 1 tab p.o. daily. 5. Tylenol 650 mg p.o. q.4 hours as needed. 6. Cefuroxime 500 mg p.o. b.i.d. x6 doses. 7. Folic acid 1 mg p.o. daily. 8. Sodium chloride 1 g p.o. b.i.d. 9. Thiamine 100 mg p.o. daily. New medications at discharge: 1. Tylenol. 2. Ceftin. 3. Folic acid. 4. Sodium chloride. 5. Thiamine. Medications discontinued at discharge: None. HOSPITAL COURSE: This is a brief summary of the patient's presentation. For more details, please see the history and physical from Josué Raygoza NP, on . In brief, the patient is a 74-year-old male with past medical history significant for the above, who presented to the emergency department after having a cough, weakness, chills, nausea, vomiting, diarrhea for approximately 1 week before admission. The patient has history of alcohol abuse, but this has been improving recently and on admission, he states that he had not had a drink for a week. The patient came to the emergency room, was found to be markedly hyponatremic with a sodium of 117. The patient was admitted to the ICU , was given 2 L of fluids. The patient had a TSH, cortisol, urine osmolality and urine sodium. The patient's urine osmolality and sodium were elevated. The patient's urinalysis was positive for nitrites and leukocyte esterase. The patient had slightly elevated troponin. The patient's sodium improved with 2 L of fluid. The patient started on antibiotics, initially Bactrim, then transitioned to ceftriaxone for his urinary tract infection. The patient's respiratory symptoms and weakness improved as his sodium improved. The patient stated a willingness to abstain entirely from alcohol. The patient had significant social issues including poor living conditions, sleeping on the floor and likely bed bug infestation which were addressed by social work while inpatient. We are likely connecting the patient with community resources. The patient was found to be retaining urine and do not have his own straight cathing supplies and was not able to be straight cathed, requiring a brief Cole insertion trial, but that was able to be removed on 11/23/19. The patient had a urinary tract infection, which grew Klebsiella pneumoniae, which was pansensitive and the patient was started on ceftriaxone and after one dose of Bactrim in the ICU with improvement in his urinary symptoms and resumption of his home straight catheterization 3 to 4 times daily, the patient's sodium progressively improved, reaching a high of 128 on 11/27/19. The patient's potassium was initially low and he was started on potassium supplementation, his potassium then became high on 11/27/19. The patient's potassium was stopped and his potassium decreased to 4.1; however, the patient's sodium also decreased to 125 from 128 for an unclear reason. The patient at that point was started on sodium tablets, but otherwise was stable and amenable for discharge to home. PHYSICAL EXAM ON THE DAY OF DISCHARGE: General: The patient is a 74-year-old male, who appears stated age, sitting comfortably in the bed, in no acute distress. Vital Signs: Temperature 98.0, pulse rate 65, respiratory rate 16, oxygen saturation 98% on room air, blood pressure 119/62. HEENT: Head: Normocephalic, atraumatic. Sclerae anicteric. No conjunctival injection. Nasal mucosa moist. Oral mucosa moist. No pharyngeal erythema, discharge or exudate. Neck: Supple, nontender. No lymphadenopathy. No carotid bruits auscultated. No JVD. Cardiac: Regular rate and rhythm. No clicks, murmurs, gallops or rubs. Pulses are 2+ in the bilateral dorsalis pedis, posterior tibialis, and radial areas. Respiratory: Clear to auscultation bilaterally. No wheezes, rales, or rhonchi. Good air exchange bilaterally. Abdomen: Soft, nondistended. Bowel sounds present and normoactive in all 4 quadrants. No hepatospleno-megaly. No abdominal bruits auscultated. No hepatojugular reflux. Slight tenderness to palpation in the right lower quadrant, improved from previous exam. Genitourinary: No suprapubic or CVA tenderness. Neuro: Cranial nerves II through XII intact. No focal deficits. Alert and oriented x3. Psychiatric: Pleasant and cooperative. DISCHARGE PLAN BY PROBLEM: 1. Influenza A. The patient has finished 5 days of oseltamivir for this. The patient's symptoms have essentially resolved. The patient needs no further intervention for this. 2. Hyponatremia. The patient's hyponatremia on admission was severe, though he was not severely symptomatic. The patient's symptoms, particularly weakness have improved and he is able to ambulate a large distance without help. The patient's baseline sodium level is in the low, appears to be around 130. The patient's high while in the hospital was 128. The patient on the day of discharge was started on salt tablets, but the etiology of the patient's hyponatremia is likely related to beer potomania and poor solid intake. The patient's salt tablet should help with his chronic hyponatremia. Though the patient is not markedly symptomatic, having hyponatremia to this level may contribute to osteoporosis and subclinical symptoms predisposing to falls and should be corrected if able. 3. Urinary tract infection. This is likely related to urinary retention and self catheterization. The patient will finish 7 days of cephalosporin therapy. The patient will continue straight cathing per his previous routine and should follow up routinely with Urology. The patient should continue to use sterile technique, which he was able to demonstrate adequately to the nurses inpatient. 4. Hypertension. Continue the patient's metoprolol. The patient's blood pressure was in the lower limit of normal while in the hospital. The patient's sodium chloride may contribute to worsening hypertension in this case, decreasing the sodium chloride dosing may be indicated. 5. Asthma. Continue the patient's montelukast. 6. Hyperlipidemia. Continue the patient's simvastatin. DISPOSITION AT THE TIME OF DISCHARGE: Home. CONDITION AT THE TIME OF DISCHARGE: Stable. TIME SPENT: Approximately 45 minutes was spent on the discharge of this patient , 30 of which was spent [id number] with the patient, obtaining history and physical and discussing treatment plan. STEVIE PRYOR [id number]/CPS #: [id number] ASHELY
== END 2019-11-27 13:28 | disposition home or self-care (01) | DRG 194 ==
LOC: ED 15:17 → ICU 19:25 → MEDTELE 11-23 10:25
PROVIDERS: ADMIT Internal Medicine; ATTEND Internal Medicine
DX: J10.1 Influenza due to other identified influenza virus with other respiratory manifestations (principal); E87.1 Hypo-osmolality and hyponatremia; N39.0 Urinary tract infection, site not specified; R33.8 Other retention of urine; J44.9 Chronic obstructive pulmonary disease, unspecified; I10 Essential (primary) hypertension; E78.5 Hyperlipidemia, unspecified; I27.21 Secondary pulmonary arterial hypertension; B96.1 Klebsiella pneumoniae [K. pneumoniae] as the cause of diseases classified elsewhere; B88.8 Other specified infestations; F10.20 Alcohol dependence, uncomplicated; F17.210 Nicotine dependence, cigarettes, uncomplicated; Y90.0 Blood alcohol level of less than 20 mg/100 ml; Z85.46 Personal history of malignant neoplasm of prostate; Z87.81 Personal history of (healed) traumatic fracture; Z79.899 Other long term (current) drug therapy; Z88.0 Allergy status to penicillin; Z83.6 Family history of other diseases of the respiratory system; Z80.42 Family history of malignant neoplasm of prostate
CPT/HCPCS: 36415; 71046; 74018; 80048; 80053; 80307; 80320; 81003; 81015; 82533; 83605; 83630; 83735; 83930; 83935; 84300; 84443; 84484; 85025; 85610; 85730; 86140; 87045; 87046; 87077; 87086; 87186; 87425; 87493; 87641; 87899; 93005; 99285; A9270-GY; G0480; J0696; J1644; J1650; J2405

== ENCOUNTER 2021-01-14 02:34 | Observation (INO) ==
[2021-01-14 03:21] LABS: ABS Lymphocytes 1.4 10^3/ul (1.0-4.8); ABS Monocytes 0.8 10^3/ul (0-0.8); ABS Neutrophils 4.3 10^3/ul (1.5-7.7); Eosinophil % 0.7 %; Hematocrit 35 % (42-52); Hemoglobin 12.1 g/dL (14.0-18.0); Lymphocyte % 21.2 %; Mean Corpuscular HGB Conc 35 g/dL (31-36); Mean Corpuscular Hemoglobin 30 pg (27-31); Mean Corpuscular Volume 86 fL (80-94); Mean Platelet Volume 8.5 fL (7.4-10.4); Platelet Count 255 10^3/uL (150-450); Red Blood Count 4.06 10^6 /uL (4.18-5.48); Red Cell Distribution Width 13 % (10-15); White Blood Count 6.6 10^3/uL (3.5-10.8)
[2021-01-14 03:24] LABS: INR 1.04 (0.82-1.09)
[2021-01-14 03:38] LABS: ALT 11 U/L (7-52); AST 20 U/L (13-39); Albumin/Globulin Ratio 1.5 (1-3); Alkaline Phosphatase 97 U/L (34-104); Anion Gap 8 mmol/L (2-11); BUN/Creatinine Ratio 12.4 (8-20); Blood Urea Nitrogen 11 mg/dL (6-24); CO2 Carbon Dioxide 25 mmol/L (22-32); Calcium 9.2 mg/dL (8.6-10.3); Chloride 90 mmol/L (101-111); EGFR African American 100.8 (>60); EGFR Non-African American 83.3 (>60); Globulin 2.7 g/dL (2-4); Glucose 106 mg/dL (70-100); Potassium 3.7 mmol/L (3.5-5.0); Sodium 123 mmol/L (135-145); Total Protein 6.7 g/dL (6.4-8.9)
[2021-01-14 03:40] LABS: Troponin I 0.01 ng/mL (<0.03)
[2021-01-14 03:42] LABS: Alcohol, S < 10 mg/dL (<10)
[2021-01-14] MEDS ORDERED: NS 0.9% 1000 ml BAG 1,000 ML IV ONE ×3 (04:21→07:30)
[2021-01-14] MEDS ORDERED: Al Hydrox/Mg Hydrox/Simet LIQ 30 ML UDC ONE (05:08)
[2021-01-14] MEDS ORDERED: Al Hydrox/Mg Hydrox/Simet LIQ 30 ML UDC PO ONE (05:11)
[2021-01-14 06:50] LABS: Albumin 3.9 g/dL (3.2-5.2); Albumin/Globulin Ratio 1.6 (1-3); BUN/Creatinine Ratio 12.3 (8-20); Calcium 8.7 mg/dL (8.6-10.3); EGFR African American 112.4 (>60); EGFR Non-African American 92.9 (>60); Globulin 2.5 g/dL (2-4); Potassium 3.7 mmol/L (3.5-5.0); Total Bilirubin 0.9 mg/dL (0.2-1.0); Total Protein 6.4 g/dL (6.4-8.9)
[2021-01-14 07:13] LABS: Urine Appearance Turbid; Urine Bilirubin Negative (Negative); Urine Blood 1+ (Negative); Urine Color Yellow; Urine Glucose Negative (Negative); Urine Ketones Negative (Negative); Urine Nitrite Positive (Negative); Urine Protein 2+(100 mg/dL) (Negative); Urine Specific Gravity 1.005 (1.002-1.030); Urine Urobilinogen Negative (Negative)
[2021-01-14] MEDS ORDERED: Ondansetron 4 mg VIAL 2 MG/ML 2 ml VIAL IV ONE (07:24)
[2021-01-14] MEDS ORDERED: cefTRIAXone 2 GM ADDV.VIAL 2 GM in NS 0.9% 100 ml BAG 100 ML IVPB ONE (07:30)
[2021-01-14 07:31] LABS: Urine Bacteria Absent (Absent); Urine Red Blood Cell 1+(3-5/hpf) (Absent); Urine White Blood Cell 2+(11-20/hpf) (Absent)
[2021-01-14 09:53] LABS: Cholesterol 150 mg/dL; HDL Cholesterol 66.8 mg/dL; LDL Cholesterol 73 mg/dL; Triglycerides 49 mg/dL
[2021-01-14] MEDS ORDERED: Albuterol HFA INHALER 8 gm MDI INH PRN (10:05)
[2021-01-14 11:48] LABS: TSH Ultra Thyroid Stim Horm 3.24 mcIU/mL (0.34-5.60)
[2021-01-14] MEDS: Enoxaparin 40 MG/0.4 ML SYR SUBCUT SCH (12:26)
[2021-01-14] MEDS: Fluticasone NASAL SPRAY 50MCG 16 gm SPRAY BTL INTRANASAL SCH (12:28)
[2021-01-14 14:39] LABS: Calcium 9.4 mg/dL (8.6-10.3); EGFR African American 110.8 (>60); EGFR Non-African American 91.6 (>60); Potassium 4.2 mmol/L (3.5-5.0)
[2021-01-15 05:54] LABS: ABS Eosinophils 0.1 10^3/ul (0-0.6); ABS Lymphocytes 1.6 10^3/ul (1.0-4.8); ABS Monocytes 1.1 10^3/ul (0-0.8); ABS Neutrophils 3.8 10^3/ul (1.5-7.7); Eosinophil % 0.9 %; Hematocrit 37 % (42-52); Hemoglobin 12.2 g/dL (14.0-18.0); Lymphocyte % 24.2 %; Mean Corpuscular HGB Conc 33 g/dL (31-36); Mean Corpuscular Hemoglobin 30 pg (27-31); Mean Corpuscular Volume 92 fL (80-94); Mean Platelet Volume 8.5 fL (7.4-10.4); Nucleated Red Blood Cells % 0.1; Platelet Count 233 10^3/uL (150-450); Red Blood Count 4.01 10^6 /uL (4.18-5.48); Red Cell Distribution Width 14 % (10-15); White Blood Count 6.6 10^3/uL (3.5-10.8)
[2021-01-15 06:21] LABS: Calcium 9.2 mg/dL (8.6-10.3); Potassium 3.6 mmol/L (3.5-5.0)
[2021-01-15] MEDS ORDERED: cefTRIAXone 1 gm/50 mL NS BAG 1 GM/50 ML BAG IVPB SCH (09:00)
[2021-01-15] MEDS: Enoxaparin 40 MG/0.4 ML SYR SUBCUT SCH (09:41)
[2021-01-15] MEDS: Fluticasone NASAL SPRAY 50MCG 16 gm SPRAY BTL INTRANASAL SCH (09:45)
[2021-01-15 11:23] VITALS: BP 106/59
== END 2021-01-15 13:05 | disposition home or self-care (01) ==
LOC: ED 02:34 → MEDTELE 02:34
PROVIDERS: ADMIT Internal Medicine; ATTEND Internal Medicine

== ENCOUNTER 2023-04-01 17:27 | Inpatient (IN) ==
[2023-04-01] MEDS ORDERED: Lactated Ringers SEPSIS* BAG 1,910 ML IV ONE (18:09)
[2023-04-01 18:34] LABS: Hematocrit 29.2 % (38-53); Hemoglobin 9.5 g/dL (13.2-16.3); Mean Corpuscular Hgb Conc 32.4 g/dL (31-36); Mean Platelet Volume 7.6 fL (7.5-11.2); Platelet Count 362 10^3/uL (150-450); Red Blood Count 3.79 10^6/uL (4.06-5.63); Red Cell Distribution Width 15.9 % (12-17); White Blood Count 16.8 10^3/uL (3.6-10.2)
[2023-04-01 18:45] LABS: INR 1.33 (0.88-1.18)
[2023-04-01 18:59] LABS: ALT 45 U/L (7-52); AST 116 U/L (13-39); Albumin 1.9 g/dL (3.2-5.2); Albumin/Globulin Ratio 0.7 (1-3); Alkaline Phosphatase 145 U/L (35-149); Anion Gap 14 mmol/L (2-16); Blood Urea Nitrogen 26 mg/dL (6-24); C Reactive Protein 151.45 mg/L (<8.01); CO2 Carbon Dioxide 20 mmol/L (22-32); Chloride 96 mmol/L (101-111); Creatine Kinase 1456 U/L (10-223); Creatinine, Serum 1.03 mg/dL (0.67-1.17); Globulin 2.6 g/dL (2-4); Glucose 80 mg/dL (70-100); Potassium 3.7 mmol/L (3.5-5.0); Sodium 130 mmol/L (135-145); Total Protein 4.5 g/dL (6.4-8.9); eGFR CKD-EPI 74.8 (>60)
[2023-04-01 19:05] LABS: High Sens Troponin Baseline 26 pg/mL (<20)
[2023-04-01 19:42] LABS: ABS Lymphocytes 0.9 10^3/uL (1.0-4.8); ABS Monocytes 0.7 10^3/uL (0.0-1.1); ABS Neutrophils 15.1 10^3/uL (1.5-7.6); ABS Nucleated RBC 0.01 10^3/ul; Lymphocyte % 5.5 %; Nucleated Red Blood Cells % 0.1 /100 WBC (0.0-0.4)
[2023-04-01] MEDS ORDERED: Lactated Ringers 1000 ml BAG 1,000 ML IV ONE ×2 (20:10→22:04)
[2023-04-01 20:42] LABS: High Sensitivity Troponin 1 Hr 25 pg/mL (<20)
[2023-04-01] MEDS ORDERED: Cefepime 2 GM in Dextrose 2 GM/50 ML BAG IV ONE (21:05)
[2023-04-01 22:36] LABS: Urine Appearance Turbid; Urine Bilirubin Negative (Negative); Urine Blood 1+ (Negative); Urine Color Yellow; Urine Glucose Negative (Negative); Urine Ketones Negative (Negative); Urine Nitrite Negative (Negative); Urine Protein 2+(100 mg/dL) (Negative); Urine Specific Gravity 1.008 (1.002-1.030); Urine Urobilinogen Negative (Negative)
[2023-04-01 22:44] LABS: Urine Bacteria Absent (Absent); Urine Red Blood Cell Absent (Absent); Urine White Blood Cell Absent (Absent)
[2023-04-01] MEDS ORDERED: Iohexol 350 (CONTRAST) 500 ML MDV IV ONE (22:46)
[2023-04-02] MEDS ORDERED: Albuterol HFA INHALER 8 gm MDI INH PRN (02:04)
[2023-04-02] MEDS ORDERED: Fluticasone NASAL SPRAY 50MCG 16 gm SPRAY BTL INTRANASAL PRN (02:04)
[2023-04-02 02:08] LABS: % Iron Saturation 31 % (15-55); .Transferrin < 75 mg/dL (203-362); Iron 33 ug/dL (50-212); Total Iron Binding Capacity 105 mcg/dL (250-450); Unsaturated Iron Binding 72 ug/dL
[2023-04-02 02:28] LABS: Ferritin 363.9 ng/mL (24-336)
[2023-04-02 03:22] LABS: Folate 6.18 ng/mL (5.90-24.80)
[2023-04-02 03:23] LABS: Vitamin B12 > 1450 pg/mL (180-914)
[2023-04-02 03:41] LABS: Urine Osmo 160 mOsm/kg (150-1150)
[2023-04-02 05:18] LABS: Hematocrit 27.2 % (38-53); Mean Corpuscular Hgb Conc 33.2 g/dL (31-36); Mean Corpuscular Volume 78.2 fL (80-97); Mean Platelet Volume 7.7 fL (7.5-11.2); Platelet Count 331 10^3/uL (150-450); Red Blood Count 3.47 10^6/uL (4.06-5.63); White Blood Count 15.9 10^3/uL (3.6-10.2)
[2023-04-02 05:20] LABS: ABS Lymphocytes 1.1 10^3/uL (1.0-4.8); ABS Monocytes 0.8 10^3/uL (0.0-1.1); ABS Neutrophils 13.9 10^3/uL (1.5-7.6); ABS Nucleated RBC 0.03 10^3/ul; Nucleated Red Blood Cells % 0.2 /100 WBC (0.0-0.4)
[2023-04-02 05:28] LABS: Albumin 1.7 g/dL (3.2-5.2); Albumin/Globulin Ratio 0.7 (1-3); Calcium 7.4 mg/dL (8.6-10.3); Creatinine, Serum 0.8 mg/dL (0.67-1.17); Globulin 2.3 g/dL (2-4); Magnesium 1.7 mg/dL (1.9-2.7); Potassium 3.9 mmol/L (3.5-5.0); Total Bilirubin 0.4 mg/dL (0.2-1.0); eGFR CKD-EPI 91.1 (>60)
[2023-04-02] MEDS: Lactated Ringers 1000 ml BAG 1,000 ML IV SCH ×2 (08:08→14:49)
[2023-04-02] MEDS ORDERED: Magnesium Sulfate IV 3 GM in NS 0.9% 100 ml BAG 100 ML IVPB ONE (08:10)
[2023-04-02] MEDS: cefTRIAXone 1 gm/50 mL D5W 1 GM/50 ML BAG IV SCH (08:12)
[2023-04-02] MEDS: Enoxaparin 40 MG/0.4 ML SYR SUBCUT SCH (08:12)
[2023-04-02] MEDS: Azithromycin 500 mg/250 ml NS 500 MG/250 ML BAG IVPB SCH (10:45)
[2023-04-02 16:59] LABS: Urine Appearance Turbid; Urine Bilirubin Negative (Negative); Urine Blood 2+ (Negative); Urine Color Yellow; Urine Glucose Negative (Negative); Urine Ketones Trace (Negative); Urine Nitrite Negative (Negative); Urine Protein 2+(100 mg/dL) (Negative); Urine Specific Gravity 1.026 (1.002-1.030); Urine Urobilinogen Negative (Negative)
[2023-04-02 17:02] LABS: Urine Bacteria 2+ (Absent); Urine Red Blood Cell 3+(>10/hpf) (Absent); Urine White Blood Cell 3+(>20/hpf) (Absent)
[2023-04-02] MEDS ORDERED: Lactated Ringers 1000 ml BAG 1,000 ML IV SCH (23:45)
[2023-04-03 06:47] LABS: Hematocrit 27.3 % (38-53); Hemoglobin 9.2 g/dL (13.2-16.3); Mean Corpuscular Hemoglobin 26.3 pg (27-33); Mean Corpuscular Hgb Conc 33.7 g/dL (31-36); Mean Platelet Volume 7.7 fL (7.5-11.2); Platelet Count 319 10^3/uL (150-450); Red Cell Distribution Width 16.6 % (12-17); White Blood Count 13.1 10^3/uL (3.6-10.2)
[2023-04-03 07:04] LABS: ALT 43 U/L (7-52); AST 71 U/L (13-39); Alkaline Phosphatase 122 U/L (35-149); Anion Gap 11 mmol/L (2-16); Blood Urea Nitrogen 18 mg/dL (6-24); C Reactive Protein 111.54 mg/L (<8.01); CO2 Carbon Dioxide 20 mmol/L (22-32); Calcium 7.4 mg/dL (8.6-10.3); Chloride 101 mmol/L (101-111); Creatine Kinase 250 U/L (10-223); Creatinine, Serum 0.75 mg/dL (0.67-1.17); Glucose 71 mg/dL (70-100); Magnesium 2.2 mg/dL (1.9-2.7); Potassium 3.6 mmol/L (3.5-5.0); Sodium 132 mmol/L (135-145); Total Protein 3.8 g/dL (6.4-8.9); eGFR CKD-EPI 92.9 (>60)
[2023-04-03 07:05] LABS: Albumin < 1.7 g/dL (3.2-5.2); Albumin/Globulin Ratio 0.8 (1-3); Globulin 2.1 g/dL (2-4)
[2023-04-03 07:12] LABS: ABS Basophils 0.1 10^3/uL (0.0-0.1); ABS Lymphocytes 1.1 10^3/uL (1.0-4.8); ABS Monocytes 0.7 10^3/uL (0.0-1.1); ABS Neutrophils 11.2 10^3/uL (1.5-7.6); ABS Nucleated RBC 0.01 10^3/ul; Lymphocyte % 8.7 %
[2023-04-03] MEDS: Enoxaparin 40 MG/0.4 ML SYR SUBCUT SCH (07:46)
[2023-04-03] MEDS: cefTRIAXone 1 gm/50 mL D5W 1 GM/50 ML BAG IV SCH (10:01)
[2023-04-03] MEDS: Azithromycin 500 mg/250 ml NS 500 MG/250 ML BAG IVPB SCH (11:17)
[2023-04-03] MEDS: Lactated Ringers 1000 ml BAG 1,000 ML IV SCH ×2 (16:37→23:34)
[2023-04-03] MEDS ORDERED: Acetaminophen IV 1 GM/100ML 1,000 MG/100 ML BAG IV PRN (16:50)
[2023-04-04] MEDS: Lactated Ringers 1000 ml BAG 1,000 ML IV SCH (06:21)
[2023-04-04 06:58] LABS: ABS Monocytes 0.7 10^3/uL (0.0-1.1); ABS Neutrophils 6.5 10^3/uL (1.5-7.6); ABS Nucleated RBC 0.01 10^3/ul; Eosinophil % 0.1 %; Hematocrit 28.4 % (38-53); Hemoglobin 9.3 g/dL (13.2-16.3); Lymphocyte % 12.6 %; Mean Corpuscular Hemoglobin 25.4 pg (27-33); Mean Platelet Volume 7.6 fL (7.5-11.2); Nucleated Red Blood Cells % 0.1 /100 WBC (0.0-0.4); Platelet Count 291 10^3/uL (150-450); Red Blood Count 3.68 10^6/uL (4.06-5.63); Red Cell Distribution Width 16.7 % (12-17); White Blood Count 8.3 10^3/uL (3.6-10.2)
[2023-04-04 07:11] LABS: Calcium 7.5 mg/dL (8.6-10.3); Creatinine, Serum 0.69 mg/dL (0.67-1.17); Potassium 3.5 mmol/L (3.5-5.0); eGFR CKD-EPI 95.3 (>60)
[2023-04-04] MEDS: Azithromycin 500 mg/250 ml NS 500 MG/250 ML BAG IVPB SCH (08:37)
[2023-04-04] MEDS: cefTRIAXone 1 gm/50 mL D5W 1 GM/50 ML BAG IV SCH (08:37)
[2023-04-04] MEDS: Enoxaparin 40 MG/0.4 ML SYR SUBCUT SCH ×2 (08:38→09:06)
[2023-04-05 06:10] LABS: Calcium 7.2 mg/dL (8.6-10.3); Magnesium 1.9 mg/dL (1.9-2.7); Potassium 3.7 mmol/L (3.5-5.0)
[2023-04-05 06:13] LABS: Hematocrit 31.4 % (38-53); Hemoglobin 10.2 g/dL (13.2-16.3); Mean Corpuscular Hemoglobin 25.7 pg (27-33); Mean Corpuscular Hgb Conc 32.6 g/dL (31-36); Mean Corpuscular Volume 79.1 fL (80-97); Mean Platelet Volume 7.7 fL (7.5-11.2); Platelet Count 235 10^3/uL (150-450); Red Blood Count 3.97 10^6/uL (4.06-5.63); White Blood Count 8.7 10^3/uL (3.6-10.2)
[2023-04-05 06:16] LABS: Creatinine, Serum 0.59 mg/dL (0.67-1.17); eGFR CKD-EPI 99.9 (>60)
[2023-04-05 06:37] LABS: ABS Eosinophils 0.1 10^3/uL (0.0-0.5); ABS Lymphocytes 0.8 10^3/uL (1.0-4.8); ABS Monocytes 0.6 10^3/uL (0.0-1.1); ABS Neutrophils 7.2 10^3/uL (1.5-7.6); ABS Nucleated RBC 0.01 10^3/ul; Eosinophil % 1.1 %; Lymphocyte % 9.3 %; Nucleated Red Blood Cells % 0.1 /100 WBC (0.0-0.4)
[2023-04-05] MEDS: cefTRIAXone 1 gm/50 mL D5W 1 GM/50 ML BAG IV SCH (08:12)
[2023-04-05] MEDS ORDERED: Furosemide 20 mg/2 ml IV VIAL IV ONE (08:40)
[2023-04-05] MEDS ORDERED: Enoxaparin 40 MG/0.4 ML SYR SUBCUT SCH (09:00)
[2023-04-05 09:01] LABS: PCO2 Arterial 46 mmHg (35-45); PO2 Arterial 79 mmHg (80-100)
[2023-04-05 14:02] VITALS: BP 90/48
[2023-04-05] MEDS ORDERED: Atropine 1% (ORAL/SL) 15 ML BTL SL PRN (15:39)
[2023-04-05] MEDS ORDERED: Ondansetron ODT 4 mg TAB 4 MG TAB SL PRN (15:39)
[2023-04-05] MEDS ORDERED: Senna TAB 8.6 mg TAB PO PRN (15:39)
[2023-04-05] MEDS ORDERED: Polyethylene Glycol 3350 17 GM PACKET PO PRN (15:39)
[2023-04-06] MEDS: Morphine ORAL CONCENTRATE 5 MG/0.25 ML ORAL.SYRIN PO PRN ×2 (00:29→04:32)
== END 2023-04-06 10:05 | disposition expired | DRG 872 ==
LOC: ED 17:27 → SUATTDRO 04-02 01:37 → EDHOLD 04-02 01:37 → MED 04-02 15:39
PROVIDERS: ADMIT Student in an Organized Health Care Education/Training Program; ATTEND Internal Medicine